=== PATIENT | female | born 1990 | race Caucasian/White ===

== ENCOUNTER → 2018-10-23 | Outpatient (CLI) | payer OTHER, MEDICAID, MEDICARE, SELFPAY ==
[2018-10-30 15:17] LABS: HPV Reflexed? NOT INDICATED
== END | disposition home or self-care (01) ==
PROVIDERS: Family Provider Internal Medicine; PCP Internal Medicine; Referring Provider Obstetrics & Gynecology; Visit Provider Obstetrics & Gynecology
DX: R10.2 Pelvic and perineal pain (principal); Z12.4 Encounter for screening for malignant neoplasm of cervix
CPT/HCPCS: 87086; 87088; 87624; 88175; G0145

== ENCOUNTER → 2018-10-30 | Outpatient (CLI) | payer OTHER, MEDICAID, MEDICARE, SELFPAY ==
--- NOTE | 2018-10-30 10:07 | RAD_ITS ---
PROCEDURE: SMALL BOWEL SERIES DATE OF EXAMINATION: October 30, 2018.. INDICATION: Female, 28 years old. Abdominal pain. PHYSICIAN: Angel Kim M.D. FLUOROSCOPY TIME (if supplied): (0:45) minutes/seconds TECHNIQUE: Radiographic and fluoroscopic images were taken of the small intestine following the ingestion of barium. COMPARISON: None. FINDINGS: A preliminary supine KUB was obtained. There is an unremarkable bowel gas pattern. Fecal material is present throughout the colon. The lung bases are unremarkable. The osseous structures are normal. The patient orally ingested approximately 12 ounces of thin barium Normal visualized fundus, body, and antrum of the stomach. Normal duodenal bulb, C-loop, and proximal jejunum. Normal visualized mucosal folds of the jejunum and ileum. There are no demonstrated dilatations, strictures, or masses of the small intestine. There is no mass displacement of the loops of small intestine. There is a normal motor pattern with barium reaching the colon within approximately 90 minutes. Spot films under fluoroscopic observation demonstrated a normal terminal ileum and ileocecal valve. RAD/Small Bowel Series Only IMPRESSION: Normal small bowel series. Electronically Signed: Angel Kim, at 15:10 EDT , Service support ,
== END | disposition home or self-care (01) ==
LOC: RAD 10:05
PROVIDERS: Family Provider Internal Medicine; PCP Internal Medicine; Referring Provider Internal Medicine Gastroenterology; Visit Provider Internal Medicine Gastroenterology
DX: R10.9 Unspecified abdominal pain (principal)
CPT/HCPCS: 74250

== ENCOUNTER → 2018-11-02 | Outpatient (CLI) | payer OTHER, MEDICARE, SELFPAY ==
--- NOTE | 2018-11-02 13:43 | US_ITS ---
STUDY: ULTRASOUND OF THE FEMALE PELVIS - COMPLETE REASON FOR EXAM: Female, 28 years old. Spastic pelvic syndrome LMP: November TECHNIQUE: Transabdominal and Transvaginal TECHNICAL QUALITY: Adequate. COMPARISON: None. FINDINGS: Uterus is heterogeneous. The uterus is anteverted and is in a midline position. The uterus measures 7.8 x 4.8 x 3.8 cm. Normal uterine cervix. The endometrium measures 7 mm in thickness, and is hyperechoic. There is no demonstrated endometrial mass. There is no demonstrated myometrial mass. I.U.D. - The patient does not have an I.U.D. The right ovary is visualized. The right ovary measures 1.7 x 1.2 x 1.3 cm. There is no right ovarian cyst or ovarian mass. There is no visualized right adnexal mass or complex lesion. There is normal arterial and normal venous vascularity. The left ovary is visualized. The left ovary measures 1.9 x 1.4 x 0.8 cm. There is no left ovarian cyst or ovarian mass. There is no visualized left adnexal mass or complex lesion. There is normal arterial and normal venous vascularity. There is no fluid in the cul-de-sac. . Polycystic ovary disease: No. US/Pelvic (Non ) IMPRESSION: Heterogeneous uterus but no definite fibroid. Electronically Signed: Valente Field MD at 22:07 EDT , Service support ,
--- NOTE | 2018-11-02 13:43 | US_ITS ---
STUDY: ULTRASOUND OF THE FEMALE PELVIS - COMPLETE REASON FOR EXAM: Female, 28 years old. Spastic pelvic syndrome LMP: November TECHNIQUE: Transabdominal and Transvaginal TECHNICAL QUALITY: Adequate. COMPARISON: None. FINDINGS: Uterus is heterogeneous. The uterus is anteverted and is in a midline position. The uterus measures 7.8 x 4.8 x 3.8 cm. Normal uterine cervix. The endometrium measures 7 mm in thickness, and is hyperechoic. There is no demonstrated endometrial mass. There is no demonstrated myometrial mass. I.U.D. - The patient does not have an I.U.D. The right ovary is visualized. The right ovary measures 1.7 x 1.2 x 1.3 cm. There is no right ovarian cyst or ovarian mass. There is no visualized right adnexal mass or complex lesion. There is normal arterial and normal venous vascularity. The left ovary is visualized. The left ovary measures 1.9 x 1.4 x 0.8 cm. There is no left ovarian cyst or ovarian mass. There is no visualized left adnexal mass or complex lesion. There is normal arterial and normal venous vascularity. There is no fluid in the cul-de-sac. . Polycystic ovary disease: No. US/Transvaginal Non- IMPRESSION: Heterogeneous uterus but no definite fibroid. Electronically Signed: Valente Field MD at 22:07 EDT , Service support ,
== END | disposition home or self-care (01) ==
LOC: OPUS 13:43
PROVIDERS: Family Provider Internal Medicine; PCP Internal Medicine; Referring Provider Obstetrics & Gynecology; Visit Provider Obstetrics & Gynecology
DX: R19.8 Other specified symptoms and signs involving the digestive system and abdomen (principal)
CPT/HCPCS: 76830; 76856

== ENCOUNTER 2019-08-27 05:41 | Day surgery (SDC) | payer OTHER, MEDICARE, MEDICAID, SELFPAY ==
[2019-05-02 14:44] VITALS: BMI 40.1
[2019-08-19 16:18] VITALS: BMI 40.1
[2019-08-27] VITALS (12 sets, daily range): BP systolic 109–136; BP diastolic 60–85; PULSE 73–95; RESP 16; TEMP 36.3–36.8; O2SAT 95–100; BMI 39.3
--- NOTE | 2019-08-27 | HYST_PTH ---
PATIENT: SUKHJINDER ALVARADO LOC: [facility] [place] U#:[id number] AGE/SX: 29/F ROOM: RE08/27/[address]: Dr. Anum Llanos MD : [id number] BED: DIS: 08/27/2019 SPEC #: [id number] RECD: 08/27/19 11:52 STATUS: EMILIANO PAULINO #: [id number] FLORIDALMA: 08/27/19 00:[address]: Anum Llanos DEPT: SURGICAL PATHOLOGY RECD BY: Jhonatan Wan ENTERED: 08/27/19 11:52 SP TYPE: HYSTERECT OTHR DR: Dr. Mily Osman MD Tissues: Uterus, NOS Procedures: Surgery Specimen Level V HEADER OPERATION: ERAS, hysterectomy, LAVH, salpingectomy PRE-OP DIAGNOSIS: Chronic pelvic pain; adenomyosis TISSUE SUBMITTED: Bilateral fallopian tubes, uterus and cervix MICROSCOPIC DIAGNOSIS Bilateral fallopian tubes, uterus and cervix, vaginal hysterectomy and bilateral salpingectomy: Cervix - moderate chronic inflammation. Endometrium - consistent with exogenous hormone effects. Myometrium - a minute intramural leiomyoma (0.5 cm in greatest dimension). - Focal superficial adenomyosis. Bilateral fallopian tubes - no pathologic diagnosis. SJ:kathleen 08/28/19 MICROSCOPIC DESCRIPTION Slides are reviewed. GROSS DESCRIPTION Received in fixative is one container labeled with the patient's name and designated uterus. The specimen consists of a uterus with attached cervix and attached right and left fallopian tubes. The uterus with cervix measures 9.5 x 6.2 x 4.2 cm and weighs 96 gm. The ectocervix is unremarkable. The cervical os is oval in contour. The endocervical canal measures 3.5 cm in length and is grossly unremarkable. The triangular endometrial cavity measures 4.5 x 3 cm. The endometrial surface is pink-connors and measures 0.2 cm in thickness. The myometrium measures 2 cm in greatest thickness and is free of mass lesions. The right and left fallopian tubes are similar in appearance with average lengths of 5.5 cm and average diameters of 0.6 cm. The fimbriated ends have a normal villous appearance. Fleet Service Clerk sections are submitted in eight cassettes as follows: 1 - anterior cervix, 2 - posterior cervix, 3 & 4 - anterior uterine wall, 5 & 6 - posterior uterine wall, 7 - right fallopian tube, 8 - left fallopian tube. / AM:kathleen 08/27/19 TC:5 CPT: 39810
--- NOTE | 2019-08-27 05:50 | EKG12_ITS ---
Test Reason : PRE-OP Blood Pressure : / mmHG Vent. Rate : 077 BPM Atrial Rate : 077 BPM P-R Int : 146 ms QRS Dur : 090 ms QT Int : 380 ms P-R-T Axes : 010 013 021 degrees QTc Int : 430 ms Normal sinus rhythm Normal ECG Confirmed by SANTOSH MAXWELL, SHEILA ([id number]), online content editor ELSY ROY ([id number]) on 08/29/2019 3:16:32 PM Referred By: Anum Llanos Confirmed By:SHEILA FROST MD
[2019-08-27 06:13] LABS: Hematocrit 39.7 % (37-47); Hemoglobin 13.1 g/dL (12.0-15.0); Mean Corpuscular Hgb 30.8 pg (27.0-32.0); Mean Corpuscular Volume 93.4 fL (81-99); Mean Platelet Vol. 11.1 fl (6.2-12.0); Platelet Count 322 K/mm3 (150-450); RBC Distribution Width CV 14.6 % (11.6-14.6); RBC Distribution Width SD 49.3 fl (35.1-43.9); Red Blood Count 4.25 M/mm3 (4.2-5.4); White Blood Count 9.3 K/mm3 (4.4-11.0)
[2019-08-27 06:27] LABS: Internal QC Validated? YES +Cl - CLEAR BKGD; Pregnancy, Urine Negative Negative
[2019-08-27] MEDS: Gabapentin 600 MG Tablet PO (06:29)
[2019-08-27] MEDS: Acetaminophen 500 MG Tablet 1000 MG PO (06:29)
[2019-08-27] MEDS: Scopolamine 1mg/72hr Patch 1 PATCH TRANSDERM. (06:30)
[2019-08-27] MEDS: Celecoxib 200 MG Capsule 400 MG PO (06:30)
[2019-08-27] MEDS: Phenazopyridine 95 MG Tablet 190 MG PO (06:30)
[2019-08-27 06:34] LABS: Anion Gap 7 (5-15); BUN 10 mg/dL (7-18); BUN/Creat Ratio 10.7 RATIO (10-20); Calcium,Total 8.5 mg/dL (8.5-10.1); Chloride 107 mmol/L (98-107); Creatinine, Serum 0.94 mg/dL (0.55-1.02); EST Glomerular Filtration Rate 74 mL/min (>60); Est Glom Filt Rate - Afr Amer 90 mL/min (>60); Estimated Creatinine Clearance 94.63 ml/min; Glucose 66 mg/dL (74-106); Magnesium 1.8 mg/dL (1.6-2.6); Potassium 3.4 mmol/L (3.5-5.1); Sodium Level 137 mmol/L (136-145)
[2019-08-27] MEDS: Lactated Ringers 1,000 ML 40 ML IV (06:41)
[2019-08-27] MEDS: dexAMETHasone 10 MG/ML Vial 8 MG IV (06:42)
[2019-08-27 06:50] LABS: Bedside Glucose 71 mg/dL (70-110)
[2019-08-27] MEDS: Lactated Ringers 1,000 ML 70 ML IV (07:00)
--- NOTE | 2019-08-27 07:22 | HP.PCM_ITS ---
- Problem List (1) Adenomyosis Status: Acute Comment: failed continuous OCP (2) Anxiety Status: Acute (3) POTS (postural orthostatic tachycardia syndrome) Status: Acute (4) Chronic pelvic pain in female Status: Chronic Comment: failed continuous OCP plan [facility] History and Physical Date of Admission: 08/27/19 Intake Vital Signs 06/11/19 Height 5 ft 10 in 06/11/19 Weight: 274 lb 06/11/19 BMI 39.3 06/11/19 BP 116/84 H Intake Visit Reasons: Preop LAV Chief Complaint: pre op [facility] System Safety Engineer Required: No Is patient in pain?: No Allergies No Known Allergies Allergy (Verified 06/11/19 13:31) Medications adalimumab 40 mg/0.8 mL subcutaneous syringe kit 40 mg SC .[id number] 10/23/18 [History Confirmed 06/11/19] citalopram 10 mg tablet 10 mg PO DAILY 10/23/18 [History Confirmed 06/11/19] dextromethorphan 20 mg-quinidine 10 mg capsule 1 cap PO DAILY 10/23/18 [History Confirmed 06/11/19] folic acid 1 mg tablet 1 mg PO DAILY 10/23/18 [History Confirmed 06/11/19] lidocaine 5 % topical patch 1 patch TOPICAL DAILY PRN 10/23/18 [History Confirmed 06/11/19] methotrexate sodium 2.5 mg tablet 2.5 mg PO QWEEK 10/23/18 [History Confirmed 06/11/19] ondansetron HCl 4 mg tablet 4 mg PO BID-TID PRN 10/23/18 [History Confirmed 06/11/19] pantoprazole 20 mg tablet,delayed release 20 mg PO DAILY 10/23/18 [History Confirmed 06/11/19] zolmitriptan 2.5 mg tablet 2.5 mg PO ONCE PRN 10/23/18 [History Confirmed 06/11/19] L norgest/e.estradiol-e.estrad 0.15 mg-30 mcg (84)/10 mcg(7) tabs,3mos 1 tab PO DAILY #91 tab 12/05/18 [Rx Confirmed 06/11/19] meloxicam 15 mg tablet 15 mg PO DAILY PRN 06/11/19 [History Confirmed 06/11/19] Is last menstrual period known: No Post menopausal: No Patient : No : No [facility] Medical History Pseudobulbar affect (Acute) POTS (postural orthostatic tachycardia syndrome) (Acute) Rheumatoid arthritis (Acute) Thyroid disorder (Acute) Anxiety (Acute) Narcolepsy (Acute) Depression (Acute) Deviated septum (Acute) Surgical History History of parathyroid surgery (Acute) Family History Grandfather Diabetes Cancer prostate Grandmother Depression Social History (Updated 06/11/19 @ 15:[address] Anum Llanos MD) Smoking Status: Never smoker alcohol intake: current details: occasionally substance use type: does not use caffeine: Yes what type of physical activity do you participate in: none seatbelt use: always do you feel safe at home: Yes additional social history: single- disabled HPI Preop LAV: Details: SUKHJINDER ALVARADO is a 29 year old who presents for preop visit. she has chronic pelvic pain and adenomyosis. Pregancy History 0 Elective abortions Hx Para Spontaneous abortions Hx # Term Pregnancies Ectopic pregnancies Hx # Pregnancies Multiple births # of living children ROS Const Constitutional: Denies fatigue, fever(s), headache(s), increased appetite, poor appetite, weight gain or weight loss ENT ENT: Denies dry mouth GI GI: Reports as per HPI; denies abdominal pain, constipation, nausea or vomiting : Reports as per HPI; denies difficulty urinating, painful urination, blood in urine, nipple discharge, pelvic pain, urinary frequency, urinary incontinence, urinary hesitancy, urinary urgency, vaginal discharge, vaginal dryness, vaginal odor, vaginal itching or other Skin Skin/Breast: Denies nipple discharge Exam Const General: cooperative, healthy appearing, comfortable, no acute distress, well developed Nutritional Appearance: average body habitus Orientation: alert HENNC Head: normal to inspection, normocephalic Neck Neck: normal visual inspection, trachea midline Thyroid: thyroid normal Chest Chest palpation & inspection: normal inspection of the chest Breast inspection: normal inspection of the breasts, normal inspection of the axillae Breast palpation: normal palpation of the breasts, normal palpation of the axillae, no axillary lymphadenopathy Resp Effort & Inspection: normal respiratory effort GI Inspection: normal to inspection, non-distended Palpation: soft, no hepatosplenomegaly General: bladder normal to palpation External Female Exam: normal external appearance, normal appearance of the urethra Urethra: normal appearance of the urethra Speculum Exam - Vagina: normal appearance of the vagina, normal vaginal discharge Speculum Exam - Cervix: normal appearance of the cervix, nontender Bimanual Exam- Vagina & Uterus: bladder normal to palpation, No cervical tenderness Bimanual Exam- Adnexa, other: normal adnexae, adnexae mobile, no adnexal masses, pelvic support normal Pelvic Support: normal Skin General: no rashes or lesions noted Assessment & Plan Problems 1. Chronic pelvic pain in female R10.2; G89.29 failed continuous OCP plan LAVH BS cysto 2. Adenomyosis N80.0 failed continuous OCP Plan After discussing the patient's diagnosis and treatment plan options, patient wishes to proceed with surgical management. I have discussed with the patient the risks, benefits, and alternatives of the procedure which include but are not limited to risks of anesthesia, bleeding, infection, possible damage to bowel, bladder, or surrounding vasculature which could lead to additional surgery to evaluate any complications. Patient agrees to procedure and wishes to proceed. ACOG/uptodate references given for additional information regarding procedure. UPDATE- I have seen the patient and performed any clinically relevant updates to the history and physical exam. Anum Llanos MD Coding Level of Care Code No Charge Diagnoses Chronic pelvic pain in female R10.2; G89.29 Adenomyosis N80.0
[2019-08-27] MEDS: Magnesium Sulfate 1 GM in 0.9% Normal Saline 100 ML IV (07:27)
[2019-08-27] MEDS: Lubricating Jelly 60 GM Tube 30 GM TOPICAL (08:06)
[2019-08-27] MEDS: Vasopressin 20 UNITS/ML Vial (08:37)
[2019-08-27] MEDS: Bupivacaine 0.25% 30 ML Vial (09:03)
--- NOTE | 2019-08-27 09:20 | PCM.OPRPT ---
Problem List (1) Adenomyosis Status: Acute Comment: failed continuous OCP (2) Anxiety Status: Acute (3) POTS (postural orthostatic tachycardia syndrome) Status: Acute (4) Chronic pelvic pain in female Status: Chronic Comment: failed continuous OCP plan [facility] Report of Operation Date of Procedure: 08/27/19 Pre-Operative Diagnosis: AUB chronic pelvic pain adenomyosis Post-Operative Diagnosis: same plus endometriosis Description of Surgical Findings:: old endometriosis lesions in anterior and posterior cul de sac. anterior scar tissue over bladder flap from previous endometriosis damage customer sales advisor: Joaquin Ferreira Type of Anesthesia:: General Special Medications: amado Specimen's removed: uterus tubes Drains: walker Estimated Blood Loss (mL): 50 Fluids Replaced: crystalloid Description of Procedure: Patient received preoperative antibiotics and SCDs were on preoperatively. Patient was taken back to the operating room and placed in the dorsal lithotomy position. General anesthesia was induced and patient was prepped and draped in normal sterile fashion. Uterine manipulator was placed inside the uterus and Walker catheter placed in the bladder. The umbilicus was grasped with towel clamps and an intraumbilical incision was made after injecting with quarter percent Marcaine and a Veress needle entered into the abdomen confirmed to be intra-abdominal with a low opening pressure. Abdomen was insufflated with CO2 gas and the Veress needle removed and the 5 mm trocar was placed under direct visualization without complication. Right and left lower quadrants were transilluminated and injected with quarter percent Marcaine and 5 mm ports placed under direct visualization. Pelvis was well visualized see operative findings for additional information. Bilateral fallopian tubes were identified and transected with the LigaSure device across the mesosalpinx to the level of the utero-ovarian ligament which was also transected with the LigaSure device. The broad ligament was opened up by transecting the round ligament bilaterally and skeletonizing the uterine vessels bilaterally and creating a bladder flap using the LigaSure device. extensive scar tissue was seen anteriorly and taken down sharply, bluntly, and with hydrodissection. The uterine arteries were transected bilaterally with good visualization of the bladder and the ureters were seen to be inferior lateral to the operative area. Attention was then paid to the vaginal portion of the procedure and the cervix was grasped with Marcelino clamps and circumferentially injected with dilute vasopressin. A circumferential incision was made and the vaginal mucosa was mobilized off posteriorly and the cul-de-sac entered into sharply and a longneck speculum placed. The anterior cul-de-sac was then identified and entered into sharply. The uterosacral ligaments were clamped cut and suture ligated with 0 Monocryl bilaterally followed by the cardinal ligaments which were clamped cut and suture ligated bilaterally with 0 Monocryl. The uterus serially descended and was removed without difficulty without morcellation. Pelvic sidewall pedicles were checked and noted to have excellent hemostasis. The vaginal mucosa was reapproximated incorporating the posterior peritoneum. This was reapproximated using 0 Vicryl [id number] sutures. Excellent hemostasis was noted. The cystoscopy was then performed and bilateral ureteral strong spray was noted and the bladder was noted to have no abnormality or lesions seen. Walker catheter was replaced and then attention paid to the abdominal portion of the procedure again. The pelvis and cul-de-sac was well visualized and no significant active bleeding noted but some raw areas were seen on the peritoneum and therefore Amado was applied. Pressure was taken down and the areas visualized and noted of excellent hemostasis. All ports were removed under direct visualization without complication and the abdomen was desufflated of air. The instruments removed from the abdomen and the vagina vaginal sweep was negative. Port sites on the abdomen were closed with 4-0 Monocryl interrupted sutures and Steri's and windows were applied. She was awoken and taken recovery in stable condition. Grafts/Implants Used: none - Complications none Multi Select Codes - Urinary/Genital Urinary/Genital CPT Codes: 42644 LAVH+BS/O <250gr Uterus
--- NOTE | 2019-08-27 09:48 | DCINST_ITS ---
Discharge Diet: No Restrictions Discharge Activity: Return to Normal Activity, May Not Drive, May Shower May resume sexual activity in: 6-8 weeks Call your doctor if your incision/area has: Continuous Slow Oozing, Sudden Increased Bleeding, Increased Pain/ Swelling, Increased Redness, Foul Smelling Discharge Call your doctor if you observe: Fever of 101 or Higher, Inability to urinate, Inability to have a bowel movement, Using more than one pad per hour Allergies/Adverse Reactions: Allergies No Known Allergies Allergy (Verified 08/20/19 12:16) Medications to take at Discharge adalimumab 40 mg/0.8 mL subcutaneous syringe kit 40 mg SC .[id number] 10/23/18 citalopram 10 mg tablet 10 mg PO DAILY 10/23/18 dextromethorphan 20 mg-quinidine 10 mg capsule 1 cap PO DAILY 10/23/18 folic acid 1 mg tablet 1 mg PO DAILY 10/23/18 lidocaine 5 % topical patch 1 patch TOPICAL DAILY PRN 10/23/18 methotrexate sodium 2.5 mg tablet 2.5 mg PO QWEEK 10/23/18 ondansetron HCl 4 mg tablet 4 mg PO BID-TID PRN 10/23/18 pantoprazole 20 mg tablet,delayed release 20 mg PO QHS 10/23/18 zolmitriptan 2.5 mg tablet 2.5 mg PO ONCE PRN 10/23/18 L norgest/e.estradiol-e.estrad 0.15 mg-30 mcg (84)/10 mcg(7) tabs,3mos 1 tab PO DAILY #91 tab 12/05/18 meloxicam 15 mg tablet 15 mg PO DAILY PRN 06/11/19 Naproxen [Naprosyn] 250 - 500 mg PO Q8H PRN PRN #30 tab 08/27/19 Oxycodone HCl/Acetaminophen [Percocet 5-325] 1 - 2 tablet PO Q6H PRN PRN 7 Days #15 tablet 08/27/19 The following prescriptions were given: Naproxen [Naprosyn] 250 - 500 mg PO Q8H PRN PRN #30 tab PRN Reason: MILD PAIN Transmission Status: Pending to [facility] Oxycodone HCl/Acetaminophen [Percocet 5-325] 1 - 2 tablet PO Q6H PRN PRN 7 Days #15 tablet PRN Reason: Pain Transmission Status: Sent to [facility] Primary Care Physician: Mily Osman MD [Primary Care Provider] - Test Results: Test results from this visit will be discussed in further detail at your follow- up appointment, if applicable. Please Follow Up With: Anum Llanos MD - [phone]
[2019-08-27 12:20] LABS: Hematocrit 38.3 % (37-47); Hemoglobin 12.8 g/dL (12.0-15.0); Mean Corp Hgb Conc 33.4 g/dL (32-36); Mean Corpuscular Hgb 31.1 pg (27.0-32.0); Platelet Count 281 K/mm3 (150-450); RBC Distribution Width CV 14.6 % (11.6-14.6); RBC Distribution Width SD 49.6 fl (35.1-43.9); Red Blood Count 4.12 M/mm3 (4.2-5.4); White Blood Count 10.3 K/mm3 (4.4-11.0)
== END 2019-08-27 13:14 | disposition home or self-care (01) ==
LOC: SDC 05:43 → AC 05:44
PROVIDERS: Anesthesiology; PCP Internal Medicine; Referring Provider Obstetrics & Gynecology; Visit Provider Obstetrics & Gynecology
PROC: 0UT9FZZ Resection of Uterus, Via Natural or Artificial Opening With Percutaneous Endoscopic Assistance (ICD-10-PCS; CPT 58552; principal; 2019-08-27 07:05)
DX: D25.1 Intramural leiomyoma of uterus (principal); N72 Inflammatory disease of cervix uteri; N80.0 Endometriosis of uterus; R10.2 Pelvic and perineal pain; G89.29 Other chronic pain; M06.9 Rheumatoid arthritis, unspecified; E07.9 Disorder of thyroid, unspecified; G47.419 Narcolepsy without cataplexy; F32.9 Major depressive disorder, single episode, unspecified; F41.9 Anxiety disorder, unspecified; Z79.899 Other long term (current) drug therapy; Z11.59 Encounter for screening for other viral diseases
CPT/HCPCS: 58552; 80048; 81025; 82962; 83735; 85027; 86850; 86900; 86901; 87635; 88302; 88307; 93005; G2023; J7120; J2405; U0004

== ENCOUNTER → 2022-01-27 | Outpatient (CLI) | payer MEDICARE, MEDICAID, SELFPAY ==
[2022-01-27 15:00] LABS: Estradiol 46.3 pg/mL; Follicle Stimulating Hormone 4.3 mIU/mL
== END | disposition home or self-care (01) ==
LOC: PAVLAB 14:34
PROVIDERS: PCP Internal Medicine; Referring Provider Obstetrics & Gynecology; Visit Provider Obstetrics & Gynecology
DX: N95.1 Menopausal and female climacteric states (principal)
CPT/HCPCS: 36415; 82670; 83001

== ENCOUNTER → 2022-10-31 | Outpatient (CLI) | payer MEDICARE, MEDICAID, SELFPAY ==
--- NOTE | 2022-10-31 11:51 | US_ITS ---
STUDY: ULTRASOUND OF THE FEMALE PELVIS - COMPLETE REASON FOR EXAM: Female, 32 years old. Ovarian cyst LMP: Patient is status post hysterectomy. TECHNIQUE: Transvaginal TECHNICAL QUALITY: Adequate. COMPARISON: Comparison is made with prior study dated November 02, 2018. FINDINGS: The patient is status post hysterectomy. The right ovary is visualized. The right ovary measures 3.5 cm x 1.9 cm x 2 cm. There is no right ovarian cyst or ovarian mass. There is no visualized right adnexal mass or complex lesion. There is normal arterial and normal venous vascularity. The left ovary is visualized. The left ovary measures 2.9 cm x 2.6 x 2.3 cm. There is no left ovarian cyst or ovarian mass. There is no visualized left adnexal mass or complex lesion. There is normal arterial and normal venous vascularity. There is no fluid in the cul-de-sac. US/Transvaginal Non- IMPRESSION: Status post hysterectomy. The ovaries are unremarkable. Electronically Signed: Angel Kim MD at 13:20 EDT ,
== END | disposition home or self-care (01) ==
LOC: US 11:48
PROVIDERS: PCP Internal Medicine; Referring Provider Obstetrics & Gynecology; Visit Provider Obstetrics & Gynecology
DX: N83.209 Unspecified ovarian cyst, unspecified side (principal)
CPT/HCPCS: 76830

== ENCOUNTER → 2023-03-31 | Outpatient (CLI) | payer MEDICARE, MEDICAID, SELFPAY ==
--- NOTE | 2023-03-31 14:12 | CT_ITS ---
STUDY: CT ABDOMEN AND PELVIS WITH CONTRAST REASON FOR EXAM: Female, 33 years old. Abdominal pain RADIATION DOSAGE (If Supplied By Facility): CTDIvol = ( 16.19 ) mGy, DLP = ( 1245.79 ) mGycm TECHNIQUE: IV 100mL Isovue-300 was administered. Transaxial images were obtained from the dome of the diaphragm to the symphysis pubis in the arterial, nephrographic and excretory phases. Multiplanar coronal and sagittal images were reformatted. Individualized Dose Optimization Techniques Were Used For This CT. COMPARISON: No relevant prior comparison study available FINDINGS: The visualized lung bases are unremarkable. The visualized portions of the heart are within normal limits. Normal liver. [Thickening of the anterior gallbladder wall or polyp. Normal spleen. Normal pancreas. Normal bilateral adrenal glands. Tiny cysts in the left kidney probably simple and no further follow-up exam is needed. No evidence of hydronephrosis. Distended stomach. Filling defect in the region of the antrum and pylorus could represent adherent residual food particle. Mass cannot be excluded. Correlation with endoscopy is recommended. In caliber small bowel loops. Fecal retention. No evidence of acute diverticulitis. Difficult to accurately evaluate the cecum this exam. The appendix is visualized and appears normal. Normal abdominal aorta. No retroperitoneal adenopathy. Normal urinary bladder. There is absence of the uterus consistent with a prior hysterectomy. There is no free fluid in the pelvis. 2.5 cm left adnexal Normal abdominal wall. No demonstrated acute osseous changes. CT/Abdomen/Pelvis WITH Contrast IMPRESSION: 1. Focal thickening of the antrum could represent adherent food particles. Filling defect cannot be excluded. Endoscopy suggested. 2. Otherwise no focal acute inflammatory process. 3. Status post hysterectomy. Trace of free fluid in the pelvis. 4. Left adnexal cyst. Electronically Signed: Allan Desai MD at 16:00 EST ,
--- OUTSIDE RECORDS SUMMARY | 2023-03-31 14:30 | XMS RPT_ITS | CCD ---
Author Name Unknown Address [address] [place] [address] Organization [facility] Care Team Providers Care Farm Rancher Name Role Phone Dawson Get D Primary Care Provider TALROLF, GET D Primary Care Unavailable Get Osman MD Primary Care Provider Talampas, Get Unavailable José Pa Unavailable Unavailable Talampas Get MAXWELL Primary Care Provider Talampas, Get Unavailable DARLEEN CARLTON Attending Unavailable TALAMPAS, GET D Primary Care Unavailable DARLEEN CARLTON Attending Unavailable TALAMPAS, GET D Primary Care Unavailable Talampas, Get Attending Unavailable Talampas, Get Primary Care Unavailable Talampas, Get Attending Unavailable Talampas, Get Primary Care Unavailable Talampas, Get Primary Care Unavailable Talampas, Get Attending Unavailable Talampas, Get Primary Care Unavailable Talampas, Get Attending Unavailable Dr. José Pa Attending Unava ilable Talampas, Get Primary Care Unavailable Talampas, Get Primary Care Unavailable Talampas, Get Attending Unavailable Talampas, Get Primary Care Unavailable Talampas, Get Attending Unavailable Talampas, Get Attending Unavailable Talampas, Get Primary Care Unavailable Talampas, Get Attending Unavailable Talampas, Get Primary Care Unavailable Talampas, Get Attending Unavailable Talampas, Get Primary Care Unavailable Talampas, Get Primary Care Unavailable Talampas, Get Attending Unavailable Talampas, Get Attending Unavailable Talampas, Get Primary Care Unavailable Talampas, Get Attending Unavailable Talampas, Get Primary Care Unavailable MARIANA, TAWNYA Referring Unavailable TALAMPAS, GET D Primary Care Unavailable Talampas MD Get D Primary Care Provider TALAMPAS, GET D Primary Care Unavailable TALAMPAS, GET D Primary Care Unavailable TALAMPAS, GET D Primary Care Unavailable TALAMPAS, GET D Primary Care Unavailable ESE FERNANDEZ Attending Unavailable TALAMPAS, GET D Attending Unavailable TALAMPAS, GET D Primary Care Unavailable MARIANATAWNYA Attending Unavailable TALAMPAS, GET D Primary Care Unavailable MARIANATAWNYA Attending Unavailable TALAMPAS, GET D Primary Care Unavailable DUARTE PEREZ Attending Unavailable TALAMPAS, GET D Primary Care Unavailable TALAMPAS, GET D Primary Care Unavailable RADHA CALLAHAN Attending Unavailable NAMAN COY Attending Unava ilable TALAMPAS, GET D Primary Care Unavailable NOMAN PHELPS Attending Unavailable TALAMPAS, GET D Primary Care Unavailable TALAMPAS, GET D Primary Care Unavailable VALENTIN HENDRICKSON Attending Unavailable VALENTIN HENDRICKSON Referring Unavailable TALAMPAS, GET D Primary Care Unavailable VALENTIN HENDRICKSON Attending Unavailable TALAMPAS, GET D Primary Care Unavailable TALAMPAS, GET D Primary Care Unavailable PENELOPE JONES Attending Unavailable ANTONIO RENE Referring Unavailable TALAMPAS, GET D Primary Care Unavailable MARIANATAWNYA Attending Unavailable TALAMPAS, GET D Primary Care Unavailable TALAMPAS, GET D Primary Care Unavailable TALAMPAS, GET D Attending Unavailable TALAMPAS, GET D Primary Care Unavailable TALAMPAS, GET D Referring Unavailable MARIANA, TAWNYA Referring Unavailable TALAMPAS, GET D Primary Care Unavailable TALAMPAS, GET D Primary Care Unavailable TALAMPAS, GET D Attending Unavailable BENEDICT TREVINO Attending Unavailable TALAMPAS, GET D Primary Care Unavailable TALAMPAS, GET D Primary Care Unavailable TALAMPAS, GET D Primary Care Unavailable NAMAN COY Attending Unava ilable Allergies Allergy Classification Reported Allergen(s) Allergy Type Date of Onset Reaction(s) Facility Aminoketones (3 sources) buPROPion Drug Allergy [address] [facility] DULoxetine (3 sources) DULoxetine Drug Allergy [address] [facility] (20 sources) buPROPion; Translations: [BUPROPION HCL] Drug Allergy 4 Unknown, Other: See Comments [facility] (20 sources) DULoxetine; Translations: [DULOXETINE] Drug Allergy 4 Unknown, Other: See Comments [facility] (20 sources) environmental [Other] Propensity to adverse reactions 6 [facility] Work Phone: (2 sources) OTHER; Translations: [OTHER] Propensity to adverse reactions (disorder) 6 [facility] Other [place] [facility] Medications Current Medications Medication Drug Class(es) Dates Sig (Normalized) Sig (Original) 0.8 ml adalimumab 50 mg/ml prefilled syringe (20 sources) Tumor Necrosis Factor April Start: 11-04-2022 Humira 40 mg/0.8 mL syringe kit prefilled syringe Completed/Discontinued Medications Medication Drug Class(es) Dates Sig (Normalized) Sig (Original) cholecalciferol 0.125 mg oral tablet (20 sources) Vitamin D take 1 tablet by mouth once daily cholecalciferol (VITAMIN D-3) 5,000 unit tab Take 5,000 Units by mouth once daily. 0 Active Problems Active Problems Problem Classification Problem Date Documented Da te Episodic/Chronic Abdominal hernia (2 sources) Hiatal hernia; Translations: [Diaphragmatic hernia without obstruction or gangrene] Onset: 01-04-2023 12-27-2022 Episodic Abdominal pain (10 sources) Abdominal pain; Translations: [Indigestion] Onset: 09-29-2022 09-29-2022 Episodic Past or Other Problems Problem Classification Problem Date Documented Da te Episodic/Chronic Conditions associated with dizziness or vertigo (14 sources) Loss of equilibrium; Translations: [Dizziness and giddiness] Onset: 5 02-04-2020 Episodic Heart valve disorders (1 source) Other abnormalities of heart beat; Translations: [Other abnormalities of heart beat] Onset: 3 Episodic Inflammation; infection of eye (except that caused by tuberculosis or sexually transmitteddisease) (20 sources) Allergic conjunctivitis of bilateral eyes; Translations: [Acute atopic conjunctivitis, bilateral] Onset: 6 02-04-2020 Episodic Nutritional deficiencies (20 sources) Decreased vitamin D; Translations: [Other specified abnormal findings of blood chemistry] Onset: 6 02-04-2020 Episodic Other circulatory disease (7 sources) Elevated blood pressure; Translations: [Elevated blood-pressure reading, without diagnosis of hypertension] Onset: 0 02-04-2020 Episodic Other circulatory disease (7 sources) Postural orthostatic tachycardia syndrome ; Translations: [Tachycardia, unspecified] Onset: 7 02-04-2020 Episodic Other connective tissue disease (20 sources) Muscle pain; Translations: [Myalgia and myositis] Onset: 3 01-23-2015 Episodic Other connective tissue disease (4 sources) Personal history of other diseases of the musculoskeletal system and connective tissue; Translations: [Personal history of other diseases of the musculoskeletal system and connective tissue] Onset: 3 Episodic Other eye disorders (20 sources) Dry eyes; Translations: [Dry eye syndrome of bilateral lacrimal glands] Onset: 7 02-04-2020 Episodic Other gastrointestinal disorders (2 sources) Change in bowel habit; Translations: [Change in bowel habit] Onset: 3 Episodic Other screening for suspected conditions (not mental disorders or infectious disease) (4 sources) Other specified abnormal findings of blood chemistry; Translations: [Other specified abnormal findings of blood chemistry] Onset: 0 Episodic Other skin disorders (1 source) Striae atrophicae; Translations: [Stretch moore] Onset: 3 Episodic Unclassified (1 source) nursing home (current) use of immunosuppressive biologic; 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] Onset: 3 Results Test Name Value Interpretation Reference [facility] it Vital Signs Date Time Vital Sign Value Performing Clinician Facility 02-15-2023 12:21-0500 Body height 177.8 cm Radha Callahan APRN.MUSIC TYPOGRAPHER Work Phone: [facility] 02-15-2023 12:21-0500 Body weight 93.89 kg Radha Callahan APRN.CNP Work Phone: [facility] 02-09-2023 20:00-0500 Diastolic blood pressure 74 mm[Hg] Agustin Rasmussen DO Work Phone: [facility] 02-09-2023 20:00-0500 Heart rate 68 /min Agustin Boyleersen DO Work Phone: [facility] 02-09-2023 20:00-0500 Respiratory rate 17 /min Agustin Rasmussen DO Work Phone: [facility] 02-09-2023 20:00-0500 SaO2% (BldA) [Mass fraction] 97 % Agustin Rasmussen DO Work Phone: [phone] [place] [address] 02-09-2023 20:00-0500 Systolic blood pressure 115 mm[Hg] Agustin Rasmussen DO Work Phone: [phone] [place] [address] 02-09-2023 14:59-0500 Body height 177.8 cm Agustin Rasmussen DO Work Phone: [phone] [place] [address] 02-09-2023 14:59-0500 Body mass index (BMI) [Ratio] 29.84 kg/m2 Agustin Boyleersen DO Work Phone: [facility] 02-09-2023 14:59-0500 Body temperature 97.9 [degF] Agustin Rasmussen DO Work Phone: [facility] 02-09-2023 14:59-0500 Body weight 94.35 kg Agustin Rasmussen DO Work Phone: [facility] 12-28-2022 15:39-0400 Body height 175.9 cm Naman Forder DO Work Phone: [facility] 12-28-2022 15:39-0400 Body weight 96.62 kg Naman Forder DO Work Phone: [facility] 12-28-2022 15:39-0400 Diastolic blood pressure 64 mm[Hg] Naman Maloneefer DO Work Phone: [facility] 12-28-2022 15:39-0400 Heart rate 109 /min Naman Forder DO Work Phone: [facility] 12-28-2022 15:39-0400 SaO2% (BldA) [Mass fraction] 98 % Naman Garza DO Work Phone: [facility] 12-28-2022 15:39-0400 Systolic blood pressure 106 mm[Hg] Naman Garza DO Work Phone: [facility] 12-27-2022 10:32-0400 Body weight 94.8 kg Tawnya Mariana CLEARING INSPECTOR.MUSIC TYPOGRAPHER Work Phone: [facility] 12-27-2022 10:32-0400 Diastolic blood pressure 68 mm[Hg] Tawnya Mariana CLEARING INSPECTOR.MUSIC TYPOGRAPHER Work Phone: [facility] 12-27-2022 10:32-0400 Heart rate 102 /min Tawnya Mariana CLEARING INSPECTOR.MUSIC TYPOGRAPHER Work Phone: [facility] 12-27-2022 10:32-0400 SaO2% (BldA) [Mass fraction] 98 % Tawnya Mariana CLEARING INSPECTOR.MUSIC TYPOGRAPHER Work Phone: [facility] 12-27-2022 10:32-0400 Systolic blood pressure 100 mm[Hg] Tawnya Mariana CLEARING INSPECTOR.MUSIC TYPOGRAPHER Work Phone: [facility] 12-14-2022 14:38-0400 Body weight 96.07 kg Penelope Corbiner PA-C Work Phone: [facility] 12-14-2022 14:38-0400 Diastolic blood pressure 73 mm[Hg] Penelope Corbiner PA-C Work Phone: [facility] 12-14-2022 14:38-0400 Heart rate 85 /min Penelope Queener PA-C Work Phone: [facility] 12-14-2022 14:38-0400 Respiratory rate 16 /min Penelope Queener PA-C Work Phone: [facility] 12-14-2022 14:38-0400 SaO2% (BldA) [Mass fraction] 100 % Penelope Queener PA-C Work Phone: [facility] 12-14-2022 14:38-0400 Systolic blood pressure 110 mm[Hg] Penelope Jones PA-C Work Phone: [facility] 12-14-2022 10:16-0400 Body mass index (BMI) [Ratio] 30.13 kg/m2 Darleen Carlton MD Work Phone: [facility] 12-14-2022 10:16-0400 Body weight 95.25 kg Darleen Carlton MD Work Phone: [facility] 12-14-2022 10:16-0400 Diastolic blood pressure 69 mm[Hg] Darleen Carlton MD Work Phone: [facility] 12-14-2022 10:16-0400 Heart rate 94 /min Darleen Carlton MD Work Phone: [facility] 12-14-2022 10:16-0400 Systolic blood pressure 102 mm[Hg] Darleen Carlton MD Work Phone: [facility] 11-02-2022 14:18-0400 Body weight 95.71 kg Duarte Perez DO Work Phone: [facility] 09-29-2022 11:44-0400 Diastolic blood pressure 62 mm[Hg] Get Talampas Other Phone: [facility] 09-29-2022 11:44-0400 Heart rate 77 /min Get Talampas Other Phone: [facility] 09-29-2022 11:44-0400 Respiratory rate 16 /min Get Talampas Other Phone: [facility] 09-29-2022 11:44-0400 SaO2% (BldA) [Mass fraction] 99 % Get Talampas Other Phone: [facility] 09-29-2022 11:44-0400 Systolic blood pressure 108 mm[Hg] Get Talampas Other Phone: [facility] 09-29-2022 07:46-0400 Body height 177.8 cm Get Talampas Other Phone: [facility] 09-29-2022 07:46-0400 Body temperature 97.88 [degF] Get Osman Other Phone: [facility] 09-29-2022 07:46-0400 Body weight 97 kg Get Dawson Other Phone: [facility] 09-28-2022 15:51-0400 Body weight 96.66 kg Tawnya Mariana CLEARING INSPECTOR.MUSIC TYPOGRAPHER Work Phone: [facility] 09-28-2022 15:51-0400 Diastolic blood pressure 70 mm[Hg] Tawnya Mariana CLEARING INSPECTOR.MUSIC TYPOGRAPHER Work Phone: [facility] 09-28-2022 15:51-0400 Heart rate 70 /min Tawnya Mariana CLEARING INSPECTOR.MUSIC TYPOGRAPHER Work Phone: [facility] 09-28-2022 15:51-0400 Systolic blood pressure 120 mm[Hg] Tawnya Mariana CLEARING INSPECTOR.MUSIC TYPOGRAPHER Work Phone: [facility] 08-03-2022 13:05-0400 Body mass index (BMI) [Ratio] 30.56 kg/m2 Darleen Carlton MD Work Phone: [facility] 08-03-2022 13:05-0400 Body weight 96.62 kg Darleen Carlton MD Work Phone: [facility] 08-03-2022 13:05-0400 Diastolic blood pressure 68 mm[Hg] Darleen Carlton MD Work Phone: [facility] 08-03-2022 13:05-0400 Heart rate 82 /min Darleen Carlton MD Work Phone: [facility] 08-03-2022 13:05-0400 Systolic blood pressure 101 mm[Hg] Darleen Carlton MD Work Phone: [facility] 06-01-2022 10:24-0500 Body temperature 97.59 [degF] Get Osman MD Work Phone: [facility] 03-01-2023 10:24-0500 Body weight 98.88 kg Get Osman MD Work Phone: [facility] 06-01-2022 10:24-0500 Diastolic blood pressure 62 mm[Hg] Get Osman MD Work Phone: [facility] 06-01-2022 10:24-0500 Heart rate 71 /min Get Osman MD Work Phone: [facility] 06-01-2022 10:24-0500 Respiratory rate 18 /min Get Osman MD Work Phone: [facility] 06-01-2022 10:24-0500 SaO2% (BldA) [Mass fraction] 99 % Get Osman MD Work Phone: [facility] 06-01-2022 10:24-0500 Systolic blood pressure 106 mm[Hg] Get Osman MD Work Phone: [facility] 09-06-2021 17:18-0400 Body weight 110.68 kg Get Osman MD Work Phone: [facility] 09-06-2021 17:18-0400 Diastolic blood pressure 60 mm[Hg] Get Osman MD Work Phone: [facility] 09-06-2021 17:18-0400 Heart rate 60 /min eGt Osman MD Work Phone: [facility] 09-06-2021 17:18-0400 SaO2% (BldA) [Mass fraction] 98 % Get Osman MD Work Phone: [facility] 09-06-2021 17:18-0400 Systolic blood pressure 92 mm[Hg] Get Osman MD Work Phone: [facility] 08-04-2021 13:13-0400 Body mass index (BMI) [Ratio] 35.73 kg/m2 Darleen Carlton MD Work Phone: [facility] 08-04-2021 13:13-0400 Body weight 112.95 kg Darleen Carlton MD Work Phone: [facility] 08-04-2021 13:13-0400 Diastolic blood pressure 67 mm[Hg] Darleen Carlton MD Work Phone: [facility] 08-04-2021 13:13-0400 Heart rate 85 /min Darleen Carlton MD Work Phone: [facility] 08-04-2021 13:13-0400 Systolic blood pressure 105 mm[Hg] Darleen Carlton MD Work Phone: [facility] 08-05-2020 13:23-0400 Body mass index (BMI) [Ratio] 36.73 kg/m2 Darleen Carlton MD Work Phone: [facility] 08-05-2020 13:23-0400 Body weight 116.12 kg Darleen Carlton MD Work Phone: [facility] 08-05-2020 13:23-0400 Diastolic blood pressure 78 mm[Hg] Darleen Carlton MD Work Phone: [facility] 08-05-2020 13:23-0400 Heart rate 96 /min Darleen Carlton MD Work Phone: [facility] 08-05-2020 13:23-0400 Systolic blood pressure 118 mm[Hg] Darleen Carlton MD Work Phone: [facility] 05-06-2020 10:13-0500 BMI (Body Mass Index) 37.45 kg/m2 [facility] 05-06-2020 10:13-0500 Body weight 118.39 kg [facility] 05-06-2020 10:13-0500 BP Diastolic 76 mm[Hg] [facility] 05-06-2020 10:13-0500 BP Systolic 114 mm[Hg] [facility] 05-06-2020 10:13-0500 Pulse (Heart Rate) 97 /min [facility] 02-04-2020 09:14-0500 BMI (Body Mass Index) 39.03 kg/m2 [facility] 02-04-2020 09:14-0500 Body weight 123.38 kg [facility] 02-04-2020 09:14-0500 BP Diastolic 81 mm[Hg] [facility] 02-04-2020 09:14-0500 BP Systolic 119 mm[Hg] [facility] 02-04-2020 09:14-0500 Height 177.8 cm [facility] 02-04-2020 09:14-0500 Pulse (Heart Rate) 121 /min Darleen [facility] Encounters Encounter Date Encounter Type Care Provider Facility Start: 03-15-2023 End: 03-15-2023 ambulatory GET D TALAMPAS Facility:[facility] Start: 03-15-2023 End: 03-15-2023 ambulatory Naman Cabello Kayla DO Work Phone: Neurology Procedures Date Procedure Procedure Detail Performing Clinician Start: 02-09-2023 US PELVIS GET TALAM PAS Start: 02-09-2023 EXTRA URINE GALO TUBE L JELENA TALAMPAS Start: 02-09-2023 URINALYSIS WITH REFL EX MICROSCOPIC AND CULTURE GET TALAMPAS Start: 02-09-2023 Us pelvic nonobstetr ic real-time image complete Agustin Rasmussen DO Work Phone: Start: 02-09-2023 CT ABDOMEN PELVIS W IV CONTRAST GET TALAMPAS Start: 02-09-2023 CBC W Auto Different ial panel - Blood GET TALAMPAS Start: 02-09-2023 Comprehensive metabo lic 2000 panel - Serum or Plasma GET TALAMPAS Start: 02-09-2023 EXTRA TUBES GET TALAM PAS Start: 02-09-2023 Lactate [Moles/volum e] in Serum or Plasma GET TALAMPAS Start: 02-09-2023 LIGHT BLUE TOP GET ANNIKA AMPAS Start: 02-09-2023 Lipase [Enzymatic activity/volume] in Serum or Plasma GET TALAMPAS Start: 02-09-2023 SST TOP GET TALAM PAS Start: 02-09-2023 Urnls dip stick/tabl et rgnt auto w/o microscopy Agustin Rasmussen DO Work Phone: Start: 02-09-2023 Ct abdomen & pelvis w/contrast material Agustin Rasmussen DO Work Phone: Start: 02-09-2023 Comprehensive metabo lic panel Agustin Rasmussen DO Work Phone: Start: 02-09-2023 EXTRA TUBES Agustin Rasmussen DO Work Phone: Start: 02-09-2023 GREEN TOP Agustin Rasmussen DO Work Phone: Start: 02-09-2023 LIGHT BLUE TOP Agustin Rasmussen DO Work Phone: Start: 02-09-2023 SST TOP Agustin Rasmussen DO Work Phone: Start: 01-13-2023 Gastric emptying tamar ging study Tawnya Wise CLEARING INSPECTOR.MUSIC TYPOGRAPHER Work Phone: Start: 04-28-2022 Clsr lacrimal punctu m plug each Valentin Hendrickson MD Work Phone: Start: 04-27-2022 Lipid 1996 panel - S cathy or Plasma Agustin Rasmussen DO Work Phone: Start: 10-14-2021 Clsr lacrimal punctu m plug each Valentin Hendrickson MD Work Phone: Start: 06-24-2021 Clsr lacrimal punctu m plug each Valentin Hendrickson MD Work Phone: Start: 02-04-2020 Radex hand 2 views Darleen Carlton Work Phone: Plan of Treatment Date Care Activity Detail Author Start: 2039 Zoster Vaccines (1 of 2) Zoste r Vaccines (1 of 2) [facility] Start: 02-28-2030 DTaP/Tdap/Td Vaccine s (2 - Td or Tdap) DTaP/Tdap/Td Vaccines (2 - Td or Tdap) [facility] Start: 02-28-2030 Tetanus vaccination Tetanus: Every [address] [facility] Start: 02-28-2030 Urine microalbumin profile [facility] Start: 04-27-2027 Lipid panel Lipid Panel [facility] Start: 08-03-2023 End: 08-03-2023 Patient encounter procedure 08/03/2023 11:00 AM [facility] [address] [place] [id number] [place] [address] [facility] [place] [address] [facility] Start: 08-02-2023 End: 08-02-2023 Patient encounter procedure 08/02/2023 1:30 PM EDT Office Visit [facility] [address] [place] [address] [place] [address] Darleen Carlton MD [address] [place] [address] [id number] [facility] Start: 06-02-2023 SHINGRIX VACCINE (1 of 2) SHINGRIX VACCINE (1 of 2) [facility] Immunizations Immunization Date Immunization Notes Care Provider Fa cili 01-10-2023 COVID-19 vaccine, ag e 12+ yr, 2022- season (IM[employer] ([employer])) Penelope Jones PA-C Work Phone: [facility] 01-10-2023 influenza, injectabl e, quadrivalent, contains preservative Penelope Jones PA-C Work Phone: [facility] 12-02-2022 hepatitis B vaccine, adult dosage Al Nurse Work Phone: [facility] Work Phone: 06-29-2022 hepatitis B vaccine, adult dosage Al Nurse Work Phone: [facility] Work Phone: 06-29-2022 hepatitis B vaccine, unspecified formulation Al Nurse Work Phone: [facility] 06-01-2022 hepatitis B vaccine, adult dosage Al Nurse Work Phone: [facility] 06-01-2022 pneumococcal (PCV20) vaccine, 20 valent (PREVNAR 20) Al Nurse Work Phone: [facility] 06-01-2022 pneumococcal Conjuga te, unspecified formulation Get Talampas MD Work Phone: [facility] Work Phone: 03-29-2022 COVID-19 booster vaccine, age 12+ yr, bivalent (PFIZER-BIONTCarmolex,) Al Nurse Work Phone: [facility] 02-15-2022 influenza, seasonal, injectable Mi Nurse Work Phone: [facility] 02-15-2022 influenza virus vaccine, unspecified formulation Penelope Jones PA-C Work Phone: [facility] 02-08-2021 influenza, injectabl e, quadrivalent, contains preservative Valentin Hendrickson MD Work Phone: [facility] 02-29-2020 Influenza, injectabl e, Madin [place] Canine Kidney, preservative free, quadrivalent Valentin Hendrickson MD Work Phone: [facility] Work Phone: 02-29-2020 tetanus toxoid, redu janes diphtheria toxoid, and acellular pertussis vaccine, adsorbed Valentin Hendrickson MD Work Phone: [facility] Work Phone: 11-09-2017 tetanus and diphther ia toxoids, adsorbed, preservative free, for adult use (5 Lf of tetanus toxoid and 2 Lf of diphtheria toxoid) [facility] 03-06-2015 human papilloma viru s vaccine, quadrivalent [facility] Work Phone: 09-29-2014 human papilloma viru s vaccine, quadrivalent [facility] 08-29-2014 human papilloma viru s vaccine, quadrivalent [facility] Payers Date Payer Category Payer Unknown [id number] 2020 Unknown [id number] 2020 Medicare [id number] 2020 Medicare [id number] 2020 Medicare [id number] 2020 Private Health Insurance [employer] DUAL COMPLETE [employer] DUAL COMPLETE [id number] 2020-Present [address] [address] [place] [address] [id number] 2020 Medicaid [id number] 2019 Medicaid [id number] 2019 Medicaid [id number] 2016 Medicare MEDICARE MEDICAR E PART A & B [id number] 2016-Present [place] [id number] 1989 Unknown [id number] 1989 Unknown [id number] 1989 Unknown [id number] [id number]. 903 1989 Unknown [id number] 2.16.840.1.759113.3.579.2. 1069 1989 Unknown [id number] 2.16.840.1.970801.3.579.2. 1069 1989 Unknown [id number] 2.16.840.1.663443.3.579.2. 1069 1989 Unknown [id number] 2.16.840.1.940668.3.579.2. 9 1989 Unknown [id number] 2.16.840.1.928367.3.579.2. 9 1989 Unknown [id number] 2.16.840.1.523581.3.579.2. 9 1989 Unknown [id number] 2.16.840.1.974838.3.579.2. 9 1989 Unknown [id number] 2.16.840.1.621928.3.579.2. 9 1989 Unknown [id number] 2.16.840.1.995748.3.579.2. 1068 1989 Unknown [id number] 2.16.840.1.189791.3.579.2. 1068 1989 Unknown [id number] 2.16.840.1.280135.3.579.2. 9 1989 Unknown [id number] 2.16.840.1.221654.3.579.2. 1068 1989 Unknown [id number] 2.16.840.1.161204.3.579.2. 9 1989 Unknown [id number] 2.16.840.1.926482.3.579.2. 1243 1989 Unknown [id number] 2.16.840.1.304650.3.579.2. 1243 1989 Unknown [id number] 2.16.840.1.852372.3.579.2. 1243 1989 Unknown [id number] 2.16.840.1.860184.3.579.2. 1243 Social History Date Type Detail Facility Start: 02-04-2020 End: 08-03-2022 Tobacco smoking status NHIS Never smoker [facility] Start: 02-04-2020 End: 08-03-2022 Tobacco use and exposure Never used [facility] Start: 02-04-2020 End: 01-10-2023 Alcohol intake Current drinker of alcohol (finding) [facility] Start: 02-04-[address] [facility] Start: 1990 Sex Assigned At Not on file [facility] Start: 06-14-2021 End: 02-09-2023 Exposure to SARS-CoV-2 (event) Not sure [facility] Start: 06-24-2021 End: 08-12-2022 Alcohol intake [facility] Start: 05-16-2020 End: 08-12-2022 History SDOH Alcohol Frequency 2 [facility] Start: 05-16-2020 End: 08-12-2022 History SDOH Alcohol Std Drinks 1 [facility] Start: 07-18-2012 History SDOH Alcohol Comment 0 to 10 drinks per month [facility] Start: 05-16-2020 End: 08-12-2022 History SDOH Social Connections Meetings 98 [facility] Start: 05-16-2020 End: 08-12-2022 History SDOH Social Connections Living 7 [facility] Start: 05-16-2020 End: 08-12-2022 History SDOH Physical Activity DPW 6 [facility] Start: 05-16-2020 End: 08-12-2022 History SDOH Physical Activity MPS 3 [facility] Start: 05-16-2020 Education 21 [facility] Start: 08-04-2021 End: 08-12-2022 Tobacco use panel [facility] Start: 08-12-2022 History SDOH Social Connections Phone 5 [facility] Start: 02-09-2023 Tobacco smoking consumption unknown [facility] Do you belong to any clubs or organizations such as samaritan groups, unions, fraternal or athletic groups, or school groups? No [facility] How often do you att end meetings of the clubs or organizations you belong to? Patient refused [facility] Are you now , , , , never or living with a partner? Never [facility] How often to you hav e a drink containing alcohol? 2-4 times a month [facility] How many standard dr inks containing alcohol do you have on a typical day? 1 or 2 [facility] How often do you hav e 6 or more drinks on 1 occasion? Never [facility] How hard is it for y ou to pay for the very basics like food, housing, medical care, and heating Hard [facility] Do you feel stress - tense, restless, nervous, or anxious, or unable to sleep at night because your mind is troubled all the time - these days [OSQ] To some extent [facility] (I/We) worried wherafaela er (my/our) food would run out before (I/we) got money to buy more. Never true [facility] The food that (I/we) bought just didn't last, and (I/we) didn't have money to get more. Sometimes true [facility] Clinical Notes 01-05-2017 to 03-15-2023 Naman Coy, - 03/15/2023 11:20 AM Radha Ochoa APRN.MUSIC TYPOGRAPHER - 02/15/2023 12:30 PM Sara Fernandez, DO - 02/09/2023 2:47 PM ESTEse Fernandez, DO - 02/09/2023 2:47 PM EST Note Date & Type Note Facility 03-15-2023 Note HNO ID: [id number] Author: Naman Coy DO Service: ? Author Type: Physician Type: Progress Notes Filed: 03/15/2023 11:37 AM Note Text: VIRTUAL VISIT PROGRESS NOTE This is a virtual visit using [employer] Video Visit. It required patient-provider interaction for the medical decision making as documented below. I have communicated my name and active licensure. The patient's identity and physical location were verified at the time of this visit. Either the patient or their legal surgical device sales representative has been informed of the risks and benefits of -- and alternatives to -- treatment through a remote evaluation and consents to proceed with the evaluation remotely. Sukhjinder Nieves is a 33 year old female seen for NT2. HISTORY REVIEWED (electronic chart updated): PAST MEDICAL HISTORY Diagnosis Date Anxiety Class 3 obesity due to excess calories without serious comorbidity with body mass index (BMI) of 40.0 to 44.9 in adult 01/05/2017 Depression Fibromyalgia GERD (gastroesophageal reflux disease) 12/18/2013 Headache(784.0) HTN (hypertension) Hyperlipidemia Narcolepsy Obesity KATHLEEN (obstructive sleep apnea) AHI 10. 12/09/2015 Asha-Schlatter's disease PBA (pseudobulbar affect) Rheumatoid arthritis (HCC) Nonspecific polyarthropathy with neg RF but Dr. Valdez treating as RA, negative RA factor Seasonal allergies PAST SURGICAL HISTORY Procedure Laterality Date EXTRACTION, ERUPTED TOOTH OR EXPOSED ROOT (ELEVATION AND/OR FORCEPS REMOVAL) 2012 HYSTERECTOMY Vaginal hysterectomy; secondary pain and scarring; laparoscpic PAST SURGICAL HISTORY OF 2010 deviated septum VISIAN ICL Bilateral 03/2022 Dr. Turner FAMILY HISTORY Problem Relation Age of Onset Asthma Mother other (chron's) Mother Prostate Cancer Maternal Grandfather Diabetes Maternal Grandfather Stroke Maternal Grandfather Social History Tobacco Use Smoking status: Never Smokeless tobacco: Never Substance Use Topics Alcohol use: Yes Alcohol/week: 1.3 standard drinks of alcohol Types: 1 Mixed Drinks per week Comment: 0 to 10 drinks per month Drug use: No Current Outpatient Medications Medication Sig cycloSPORINE (RESTASIS) 0.05 % ophthalmic emulsion Use 1 Drop in both eyes two times a day. topiramate (TOPAMAX) 100 mg tablet Take 1 tablet by mouth two times a day. As directed for migraines and pain ZOLMitriptan (ZOMIG) 2.5 mg tablet Take 1 tablet (2.5 mg) by mouth as needed. May repeat after 2 hours if 1 pill not adequate ondansetron (ZOFRAN) 4 mg tablet Take 1 tablet by mouth every 8 hours as needed for nausea/vomiting. cyclobenzaprine (FLEXERIL) 10 mg tablet Take 10 mg by mouth daily at bedtime. dextromethorphan 20 mg - quiNIDine 10 mg (NUEDEXTA) 20-10 mg capsule Take 1 capsule by mouth two times a day. pantoprazole DR (PROTONIX) 20 mg tablet Take 1 tablet by mouth once daily. citalopram hydrobromide (CELEXA) 10 mg tablet Take 1 tablet by mouth once daily. metFORMIN (GLUCOPHAGE) 500 mg tablet Take 2 tablet in the am and 1 tablet in the pm x 2 weeks, then increase to 2 tablets twice a day. meloxicam (MOBIC) 15 mg tablet Take 1 tablet by mouth once daily as needed for pain. With food. cholecalciferol (VITAMIN D-3) 5,000 unit tab Take 5,000 Units by mouth once daily. CLARAVIS 40 mg capsule Take 40 mg by mouth once daily. omega-3 fatty acids/fish oil (FISH OIL-OMEGA-3 FATTY ACIDS) 300-1,000 mg cap Take 2 g by mouth. adalimumab (HUMIRA) 40 mg/0.8 mL injection Inject 0.8 mL subcutaneously every 2 weeks. (Patient taking differently: Inject 40 mg subcutaneously every 4 weeks.) COMPOUNDED PRESCRIPTION Allergy injections once monthly. (at home per Dr. Valente Paulino) lidocaine (LIDODERM) 5 % Apply 1 Patch as directed every 24 hours. No current facility-administered medications for this visit. ALLERGIES Allergen Reactions Cymbalta [Duloxetin* Other: See Comments Menstrual cramping / spotting Environmental [Othe* Wellbutrin [Bupropi* Other: See Comments Menstrual cramping / spotting PHYSICAL EXAMINATION: VIDEO EXAM: (if completed, performed via video enabled technology) NEUROLOGIC: no obvious deficit ASSESSMENT/PLAN: Problem List Items Addressed This Visit Narcolepsy without cataplexy Overview HYPERSOMNIA CLASSIFICATION Narcolepsy Type 2 Symptom onset and evolution: EDS: HS Diagnosed 2010 age 20 yr Cataplexy: No SP: No Hallucinations: in HS twice in life. Dreams: no longer remembering dreams in the last few years. Comorbid: fibromyalgia, POTS, RA, pseudobulbar syndrome, hypermobility Sleep pattern cycles from normal to delayed every 6 mo. BT 1-2 am WT 12 pm - 2 pm Not napping much TST 10-12 hours. Trying to shift rhythms but not consistent. PRIOR SLEEP STUDIES: A Polysomnogram performed on 11/2010 revealed an TST 365 min, SE 89%, REML 343 min, AHI of 0.7l; REM index of 6.1, PLM index of 0, oxygen saturation nad (more content not included)... [facility] 03-15-2023 History of Present illness Narrative VIRTUAL VISIT PROGRESS NOTE This is a virtual visit using [employer] Video Visit. It required patient-provider interaction for the medical decision making as documented below. I have communicated my name and active licensure. The patient's identity and physical location were verified at the time of this visit. Either the patient or their legal surgical device sales representative has been informed of the risks and benefits of -- and alternatives to -- treatment through a remote evaluation and consents to proceed with the evaluation remotely. Sukhjinder Nieves is a 33 year old female seen for NT2. HISTORY REVIEWED (electronic chart updated): PAST MEDICAL HISTORY Diagnosis Date Anxiety Class 3 obesity due to excess calories without serious comorbidity with body mass index (BMI) of 40.0 to 44.9 in adult 01/05/2017 Depression Fibromyalgia GERD (gastroesophageal reflux disease) 12/18/2013 Headache(784.0) HTN (hypertension) Hyperlipidemia Narcolepsy Obesity KATHLEEN (obstructive sleep apnea) AHI 10. 12/09/2015 Asha-Schlatter's disease PBA (pseudobulbar affect) Rheumatoid arthritis (HCC) Nonspecific polyarthropathy with neg RF but Dr. Valdez treating as RA, negative RA factor Seasonal allergies PAST SURGICAL HISTORY Procedure Laterality Date EXTRACTION, ERUPTED TOOTH OR EXPOSED ROOT (ELEVATION AND/OR FORCEPS REMOVAL) 2012 HYSTERECTOMY Vaginal hysterectomy; secondary pain and scarring; laparoscpic PAST SURGICAL HISTORY OF 2010 deviated septum VISIAN ICL Bilateral 03/2022 Dr. Turner FAMILY HISTORY Problem Relation Age of Onset Asthma Mother other (chron's) Mother Prostate Cancer Maternal Grandfather Diabetes Maternal Grandfather Stroke Maternal Grandfather Social History Tobacco Use Smoking status: Never Smokeless tobacco: Never Substance Use Topics Alcohol use: Yes Alcohol/week: 1.3 standard drinks of alcohol Types: 1 Mixed Drinks per week Comment: 0 to 10 drinks per month Drug use: No Current Outpatient Medications Medication Sig cycloSPORINE (RESTASIS) 0.05 % ophthalmic emulsion Use 1 Drop in both eyes two times a day. topiramate (TOPAMAX) 100 mg tablet Take 1 tablet by mouth two times a day. As directed for migraines and pain ZOLMitriptan (ZOMIG) 2.5 mg tablet Take 1 tablet (2.5 mg) by mouth as needed. May repeat after 2 hours if 1 pill not adequate ondansetron (ZOFRAN) 4 mg tablet Take 1 tablet by mouth every 8 hours as needed for nausea/vomiting. cyclobenzaprine (FLEXERIL) 10 mg tablet Take 10 mg by mouth daily at bedtime. dextromethorphan 20 mg - quiNIDine 10 mg (NUEDEXTA) 20-10 mg capsule Take 1 capsule by mouth two times a day. pantoprazole DR (PROTONIX) 20 mg tablet Take 1 tablet by mouth once daily. citalopram hydrobromide (CELEXA) 10 mg tablet Take 1 tablet by mouth once daily. metFORMIN (GLUCOPHAGE) 500 mg tablet Take 2 tablet in the am and 1 tablet in the pm x 2 weeks, then increase to 2 tablets twice a day. meloxicam (MOBIC) 15 mg tablet Take 1 tablet by mouth once daily as needed for pain. With food. cholecalciferol (VITAMIN D-3) 5,000 unit tab Take 5,000 Units by mouth once daily. CLARAVIS 40 mg capsule Take 40 mg by mouth once daily. omega-3 fatty acids/fish oil (FISH OIL-OMEGA-3 FATTY ACIDS) 300-1,000 mg cap Take 2 g by mouth. adalimumab (HUMIRA) 40 mg/0.8 mL injection Inject 0.8 mL subcutaneously every 2 weeks. (Patient taking differently: Inject 40 mg subcutaneously every 4 weeks.) COMPOUNDED PRESCRIPTION Allergy injections once monthly. (at home per Dr. Valente Paulino) lidocaine (LIDODERM) 5 % Apply 1 Patch as directed every 24 hours. No current facility-administered medications for this visit. ALLERGIES Allergen Reactions Cymbalta [Duloxetin* Other: See Comments Menstrual cramping / spotting Environmental [Othe* Wellbutrin [Bupropi* Other: See Comments Menstrual cramping / spotting PHYSICAL EXAMINATION: VIDEO EXAM: (if completed, performed via video enabled technology) NEUROLOGIC: no obvious deficit ASSESSMENT/PLAN: Problem List Items Addressed This Visit Narcolepsy without cataplexy Overview HYPERSOMNIA CLASSIFICATION Narcolepsy Type 2 Symptom onset and evolution: EDS: HS Diagnosed 2011 age 20 yr Cataplexy: No SP: No Hallucinations: in HS twice in life. Dreams: no longer remembering dreams in the last few years. Comorbid: fibromyalgia, POTS, RA, pseudobulbar syndrome, hypermobility Sleep pattern cycles from normal to delayed every 6 mo. BT 1-2 am WT 12 pm - 2 pm Not napping much TST 10-12 hours. Trying to shift rhythms but not consistent. PRIOR SLEEP STUDIES: A Polysomnogram performed on 11/2010 revealed an TST 365 min, SE 89%, REML 343 min, AHI of 0.7l; REM index of 6.1, PLM index of 0, oxygen saturation ge 90%. A Multiple Sleep Latency Test performed on 11/2010 revealed a mean sleep latency of 4.7 minutes and 3/5 sleep onset REM periods (naps 3, 4, 5). A Polysomnogram performed on 11/2015 revealed an AHI of 10.7; supine index of 13.5; and a minimum oxygen saturation of 93%. Past treatments: Modafinil (2010, 1 day) Armodafinil (2 wk) - both may have worsened knee pain. Methylphenidate (2010) Dexamphetamine (2010) - both caused dizziness, out of her body sensation; she built up tolerance in 3 d, elevated BP. SO (2012, 1 mo): not effective - woke up once and felt terrified, called special pharmacy and then stopped. Clarithromycin (2013, Dr. Harvey, 2 mo): not effective. Solriamfetol 150 mg (01/2023-) She has not been on any meds for narcolepsy since 2013. Now tolerated solriamfetol 150 mg which is making her more alert. No side effects. Feels she has abnormal response to meds. Fate anesthesia didn't affect her, can drink lots of alcohol and feel peripheral effects but not intoxication, no effect of narcoleptics. Diagnosed with pseudobulbar affect attributed to narcolepsy. 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 Currently sleeping from 2 am to 2 pm but this is not the norm. Describes numerous scenarios of insensitivity to medications, drugs and alcohol ? pharmacogenetic abnormality. She has not been treated for narcolepsy for 10 years but feels EDS is worsening. Now tolerating solriamfetol 150 mg per day with improvement in EDS. She also believes she has adult onset ADD which is affecting daytime functioning. Return 6 months with me. Could pursue [employer] testing with out of pocket cost. I spent a total of 20 minutes on the date of the service which included preparing to see the patient, [id number] patient care, completing clinical documentation, counseling and educating the patient/family/caregiver, and ordering medications, tests, or procedures. Naman Garza DO documented in this encounter [facility] 02-15-2023 Note HNO ID: [id number] Author: Radha Callahan APRN.MUSIC TYPOGRAPHER Service: ? Author Type: Nurse Practitioner Type: Progress Notes Filed: 02/15/2023 12:52 PM Note Text: BMI Obesity Medicine Follow-Up Note - VIRTUAL VISIT February 15, 2023 This Team Access Model visit is a virtual encounter. I have communicated my name and active licensure. The patient's identity and physical location were verified at the time of this visit. Either the patient or their legal surgical device sales representative has been informed of the risks and benefits of -- and alternatives to -- treatment through a remote evaluation and consents to proceed with the evaluation remotely. Patient Summary: is 33 year old female who presents for follow-up evaluation of her obesity and related complications to the [facility] Bariatric and Metabolic [place]. Initial program/last visit weight: 211 lbs [November 2022] Today's weight: 207 lbs Recent Weight history: Last Wt 02/15/23 : 93.9 kg (207 lb) 01/10/23 : 97.1 kg (214 lb) 01/03/23 : 95.3 kg (210 lb) 12/28/22 : 96.6 kg (213 lb) Assessement/plan from last visit: -Through mutual decision making the patient will try to follow a time restricted eating program (11/16). Suggested incorporate the adult portion plate specifically the [place] healthy eating guidelines to ensure the healthiest choices from macronutrients.. -Discussed the 6 mindful eating tips that she should follow daily. -I will delay starting any medications that could interact with stimulants. She has an appointment with sleep medicine (December 28, 2022) regarding underlying narcolepsy. She has been on several stimulants in the past that have not been effective. I will only consider beginning phentermine if she has not started on a stimulant as a recommendation of the sleep specialist. -Continue the topiramate 100 mg twice a day which is being used for migraine prophylaxis. -Discussed potentially starting the extended release form of naltrexone/bupropion but this option is cost prohibitive. -Plan to increase the metformin by 500 mg every 2 weeks until on 1000 mg twice a day. -Follow-up visit in 2 to 3 months for management of above interventions HPI: PT specifies the following items as new or significant updates since the last appointment: Last visit was with Dr. Perez in November. Reports weight is decreased since the last visit. Metformin was increased at her initial visit in November. Tolerated dose increase. No side effects. Had visit with BMI [facility]. Diagnosed with hypermobility and degenerative disk disease. Completed physical therapy. Additionally had 2 ER visits for ovarian cysts since last visit. Back pain and cyst pain has been limiting activity. Saw sleep med. Started Solriamfetol/Sunosi. Anti-obesity medication: Metformin 1000 mg BID Side effects: no side effects Started: November 2022 Starting weight: 211 lb Dietary changes: Time-Restricted Eating Seeing cutting pressman Increasing protein Exercise: decreased with back pain and ovarian cysty Planning to resume gym routine soon Stress: stable Sleep: stable Continues with sleep medicine for narcolepsy Started Sunosi Weight graph: PAST MEDICAL HISTORY Diagnosis Date Anxiety Class 3 obesity due to excess calories without serious comorbidity with body mass index (BMI) of 40.0 to 44.9 in adult 01/05/2017 Depression Fibromyalgia GERD (gastroesophageal reflux disease) 12/18/2013 Headache(784.0) HTN (hypertension) Hyperlipidemia Narcolepsy Obesity KATHLEEN (obstructive sleep apnea) AHI 10. 12/09/2015 Asha-Schlatter's disease PBA (pseudobulbar affect) Rheumatoid arthritis (HCC) Nonspecific polyarthropathy with neg RF but Dr. Valdez treating as RA, negative RA factor Seasonal allergies Current Outpatient Medications Medication Sig Dispense Refill topiramate (TOPAMAX) 100 mg tablet Take 1 tablet by mouth two times a day. As directed for migraines and pain 180 tablet 3 ZOLMitriptan (ZOMIG) 2.5 mg tablet Take 1 tablet (2.5 mg) by mouth as needed. May repeat after 2 hours if 1 pill not adequate 18 tablet 3 ondansetron (ZOFRAN) 4 mg tablet Take 1 tablet by mouth every 8 hours as needed for nausea/vomiting. 30 tablet 1 cyclobenzaprine (FLEXERIL) 10 mg tablet Take 10 mg by mouth daily at bedtime. dextromethorphan 20 mg - quiNIDine 10 mg (NUEDEXTA) 20-10 mg capsule Take 1 capsule by mouth two times a day. 60 capsule 2 solriamfetoL 150 mg tablet (SUNOSI) Take 1/2 tab upon morning awakening for 2 weeks. Then increase to 1 tab on awakening. [address] (PROTONIX) 20 mg tablet Take 1 tablet by mouth once daily. 90 tablet 3 citalopram hydrobromide (CELEXA) 10 mg tablet Take 1 tablet by mouth once daily. 90 tablet 3 metFORMIN (GLUCOPHAGE) 500 mg tablet Take 2 tablet in the am and 1 tablet in the pm x 2 weeks, then increase to 2 tablets twice a day. 120 tablet 5 meloxicam (MOBIC) 15 mg tablet Take 1 tablet (more content not included)... [facility] 02-15-2023 History of Present illness Narrative Images from the original note were not included. BMI Obesity Medicine Follow-Up Note - VIRTUAL VISIT February 15, 2023 This Team Access Model visit is a virtual encounter. I have communicated my name and active licensure. The patient's identity and physical location were verified at the time of this visit. Either the patient or their legal surgical device sales representative has been informed of the risks and benefits of -- and alternatives to -- treatment through a remote evaluation and consents to proceed with the evaluation remotely. Patient Summary: is 33 year old female who presents for follow-up evaluation of her obesity and related complications to the [facility] Bariatric and Metabolic [place]. Initial program/last visit weight: 211 lbs [November 2022] Today's weight: 207 lbs Recent Weight history: Last Wt 02/15/23 : 93.9 kg (207 lb) 01/10/23 : 97.1 kg (214 lb) 01/03/23 : 95.3 kg (210 lb) 12/28/22 : 96.6 kg (213 lb) Assessement/plan from last visit: -Through mutual decision making the patient will try to follow a time restricted eating program (11/16). Suggested incorporate the adult portion plate specifically the [place] healthy eating guidelines to ensure the healthiest choices from macronutrients.. -Discussed the 6 mindful eating tips that she should follow daily. -I will delay starting any medications that could interact with stimulants. She has an appointment with sleep medicine (December 28, 2022) regarding underlying narcolepsy. She has been on several stimulants in the past that have not been effective. I will only consider beginning phentermine if she has not started on a stimulant as a recommendation of the sleep specialist. -Continue the topiramate 100 mg twice a day which is being used for migraine prophylaxis. -Discussed potentially starting the extended release form of naltrexone/bupropion but this option is cost prohibitive. -Plan to increase the metformin by 500 mg every 2 weeks until on 1000 mg twice a day. -Follow-up visit in 2 to 3 months for management of above interventions HPI: PT specifies the following items as new or significant updates since the last appointment: Last visit was with Dr. Perez in November. Reports weight is decreased since the last visit. Metformin was increased at her initial visit in November. Tolerated dose increase. No side effects. Had visit with BMI [address]. Diagnosed with hypermobility and degenerative disk disease. Completed physical therapy. Additionally had 2 ER visits for ovarian cysts since last visit. Back pain and cyst pain has been limiting activity. Saw sleep med. Started Solriamfetol/Sunosi. Anti-obesity medication: Metformin 1000 mg BID Side effects: no side effects Started: November 2022 Starting weight: 211 lb Dietary changes: Time-Restricted Eating Seeing cutting pressman Increasing protein Exercise: decreased with back pain and ovarian cysty Planning to resume gym routine soon Stress: stable Sleep: stable Continues with sleep medicine for narcolepsy Started Sunosi Weight graph: PAST MEDICAL HISTORY Diagnosis Date Anxiety Class 3 obesity due to excess calories without serious comorbidity with body mass index (BMI) of 40.0 to 44.9 in adult 01/05/2017 Depression Fibromyalgia GERD (gastroesophageal reflux disease) 12/18/2013 Headache(784.0) HTN (hypertension) Hyperlipidemia Narcolepsy Obesity KATHLEEN (obstructive sleep apnea) AHI 10. 12/09/2015 Oakley-Schlatter's disease PBA (pseudobulbar affect) Rheumatoid arthritis (HCC) Nonspecific polyarthropathy with neg RF but Dr. Valdez treating as RA, negative RA factor Seasonal allergies Current Outpatient Medications Medication Sig Dispense Refill topiramate (TOPAMAX) 100 mg tablet Take 1 tablet by mouth two times a day. As directed for migraines and pain 180 tablet 3 ZOLMitriptan (ZOMIG) 2.5 mg tablet Take 1 tablet (2.5 mg) by mouth as needed. May repeat after 2 hours if 1 pill not adequate 18 tablet 3 ondansetron (ZOFRAN) 4 mg tablet Take 1 tablet by mouth every 8 hours as needed for nausea/vomiting. 30 tablet 1 cyclobenzaprine (FLEXERIL) 10 mg tablet Take 10 mg by mouth daily at bedtime. dextromethorphan 20 mg - quiNIDine 10 mg (NUEDEXTA) 20-10 mg capsule Take 1 capsule by mouth two times a day. 60 capsule 2 solriamfetoL 150 mg tablet (SUNOSI) Take 1/2 tab upon morning awakening for 2 weeks. Then increase to 1 tab on awakening. [address] (PROTONIX) 20 mg tablet Take 1 tablet by mouth once daily. 90 tablet 3 citalopram hydrobromide (CELEXA) 10 mg tablet Take 1 tablet by mouth once daily. 90 tablet 3 metFORMIN (GLUCOPHAGE) 500 mg tablet Take 2 tablet in the am and 1 tablet in the pm x 2 weeks, then increase to 2 tablets twice a day. 120 tablet 5 meloxicam (MOBIC) 15 mg tablet Take 1 tablet by mouth once daily as needed for pain. With food. 30 tablet 2 cholecalciferol (VITAMIN D-3) 5,000 unit tab Take 5,000 Units by mouth once daily. CLARAVIS 40 mg capsule Take 40 mg by mouth once daily. cycloSPORINE (RESTASIS) 0.05 % ophthalmic emulsion Use 1 Drop in both eyes twice daily. 90 Each 3 omega-3 fatty acids/fish oil (FISH OIL-OMEGA-3 FATTY ACIDS) 300-1,000 mg cap Take 2 g by mouth. adalimumab (HUMIRA) 40 mg/0.8 mL injection Inject 0.8 mL subcutaneously every 2 weeks. (Patient taking differently: Inject 40 mg subcutaneously every 4 weeks.) 6 Each 0 COMPOUNDED PRESCRIPTION Allergy injections once monthly. (at home per Dr. Valente Paulino) 0 lidocaine (LIDODERM) 5 % Apply 1 Patch as directed every 24 hours. No current facility-administered medications for this visit. Denies chest pain, sob, palpitations, elevated heart rate or blood pressure. Denies abdominal pain, constipation, diarrhea, nausea, vomiting, or GERD. Denies trouble swallowing, hoarseness. Denies paresthesias, insomnia, grogginess, anxiety, mood changes, or flank pain. Physical exam:Ht 177.8 cm (5' 10 ) Wt 93.9 kg (207 lb) LMP 06/15/2015 BMI 29.70 kg/m VIDEO EXAM: (if done, performed via video enabled technology) GENERAL: alert and appropriate, in no distress, well-hydrated, well nourished, and happy, smiling, interactive Results: CBC Latest Ref Rng & Units 01/10/2023 WBC 3.70 - 11.00 k/uL 9.20 RBC 3.90 - 5.20 m/uL 4.21 HEMOGLOBIN 11.5 - 15.5 g/dL 13.6 HEMOGLOBIN, CARLOS 11.5 - 15.5 g/dL - HEMATOCRIT 36.0 - 46.0 % 41.1 MCV 80.0 - 100.0 fL 97.6 MCV, CARLOS 80.0 - 100.0 fL - MCH 26.0 - 34.0 pg 32.3 MCH, CARLOS 26.0 - 34.0 pg - MCHC 30.5 - 36.0 g/dL 33.1 MCHC, CARLOS 30.5 - 36.0 g/dL - RDW, CARLOS 11.5 - 15.0 % - RDW-CV 11.5 - 15.0 % 14.0 PLATELETS 150 - 400 k/uL 297 MPV 9.0 - 12.7 fL 11.1 MPV, CARLOS 9.0 - 12.7 fL - NEUT%, CARLOS 39.5 - 74.0 % - MONO%, CARLOS 0.0 - 12.0 % - EOS%, CARLOS 0.0 - 6.6 % - BASO% % - BASO%, CARLOS 0.0 - 1.2 % - ABS NEUT (ANC) 1.45 - 7.50 k/uL - ABS NEUT, CARLOS 1.45 - 7.50 k/uL - ABS LYMP, CARLOS 1.00 - 4.00 k/uL - ABS LYMPH 1.00 - 4.00 k/uL - ABS MONO 0.00 - 0.86 k/uL - ABS MONO, CARLOS 0.00 - 0.86 k/uL - ABS EOS, CARLOS 0.00 - 0.45 k/uL - ABS EOSIN 0.00 - 0.45 k/uL - ABS BASO 0.00 - 0.10 k/uL - ABS BASO, CARLOS 0.00 - 0.10 k/uL - DIFF TYPE - - Cholesterol, Total (mg/dL) Date Value 08/17/2022 226 09/01/2021 164 05/30/2020 185 11/30/2017 210 HDL Cholesterol (mg/dL) Date Value 09/01/2021 40 05/30/2020 45 11/30/2017 38 LDL Cholesterol (mg/dL) Date Value 09/01/2021 111 05/30/2020 129 11/30/2017 147 Triglyceride (mg/dL) Date Value 08/17/2022 65 09/01/2021 66 05/30/2020 55 11/30/2017 126 CMP Latest Ref Rng & Units 01/10/2023 SODIUM 136 - 144 mmol/L 137 SODIUM, CARLOS 132 - 148 mmol/L - SODIUM, CARLOS 132 - 148 mmol/L - POTASSIUM 3.7 - 5.1 mmol/L 3.7 POTASSIUM, CARLOS 3.5 - 5.0 mmol/L - CHLORIDE 97 - 105 mmol/L 105 CHLORIDE, CARLOS 98 - 110 mmol/L - CO2 22 - 30 mmol/L 19(L) CO2, CARLOS 23.0 - 32.0 mmol/L - GLUCOSE 74 - 99 mg/dL 78 GLUCOSE, CARLOS 65 - 100 mg/dL - BUN 7 - 21 mg/dL 11 BUN, CARLOS 10 - 25 mg/dL - CREATININE 0.58 - 0.96 mg/dL 0.58 CREATININE, CARLOS 0.7 - 1.4 mg/dL - EGFR >=60 mL/min/1.73m 122 EGFR-ALL OTHER RACES . - EGFR- - - PROTEIN, TOTAL 6.3 - 8.0 g/dL 6.9 ALBUMIN 3.9 - 4.9 g/dL 4.4 ALBUMIN, URINE (PROT ELECTRO) % - CALCIUM, CARLOS 8.5 - 10.5 mg/dL - CALCIUM, 24 HR URINE 100 - 300 mg/24 hr - CALCIUM, TOTAL 8.5 - 10.2 mg/dL 9.6 BILIRUBIN, TOTAL 0.2 - 1.3 mg/dL 0.2 AST 13 - 35 U/L 15 ALT 7 - 38 U/L 9 ALKALINE PHOSPHATASE, TOTAL 33 - 115 U/L - ALKALINE PHOSPHATASE 34 - 123 U/L 68 Estimated Creatinine Clearance: 169.8 mL/min (based on SCr of 0.58 mg/dL). Hemoglobin A1C (%) Date Value 12/23/2015 5.3 Assessment/Plan: Sukhjinder Nieves is a 33 year old female with Class I obesity who presents today for supervised weight loss follow-up. Patient has been successful with the personalized nutrition and physical activity plan we discussed last visit. Patient has lost 4 lbs/2% TBW from last visit and since initiating medical weight management in November 2022. - Appropriate response to increasing her metformin and tolerating the medication. - Continue topiramate 100 mg BID which is being used for migraine prophylaxis. - She plans on increasing exercise regimen as tolerated once pain improves. - We discussed alternative anti-obesity medication options if she would be interested in adding medication: Incretin agents such as GLP-1 RA/GIP [Mounjaro, Ozempic, Wegovy, Saxenda] are reasonable as she denies any personal or family history of medullary thyroid cancer or MEN 2, pancreatitis, cholecystitis, suicide attempt, or significant thyroid nodules. However, likely limited by insurance coverage/cost. Phentermine is not a good option due to narcolepsy and elevated HR. Has trialed several stimulants in the past that have not been effective. She recently started Sunosi which is not a stimulant, however, does carry risk of increasing BP/HR, especially when combined with phentermine. Her heart rate at recent office visits has been consistently > 100 bpm. Would avoid phentermine for now. Already taking topiramate 100 mg BID for migraines. Bupropion/naltrexone is reasonable as she does not have history of seizures, glaucoma, uncontrolled hypertension, anorexia nervosa, bulimia, drug or opioid use, alcohol use, or mood/bipolar disorder. We reviewed this may be prescribed generically to make it cheaper but she would like to hold off on this for now. Taking maximum metformin. - Shared decision made to continue metformin, she would like to hold off on adding medication at this time. Main option would be generic bupropion + naltrexone to mimic brand name Contrave. - Additional agents that may be useful in the future are GLP-1/GIP, bupropion/naltrexone. - Agents that are currently contraindicated in this case are n/a. Caution phentermine (narcolepsy). Follow-up visit for management of above interventions in 3 mos. I spent a total of 20 minutes on the date of the service which included preparing to see the patient, [id number] patient care, completing clinical documentation, obtaining and/or reviewing separately obtained history, performing a medically appropriate examination, counseling and educating the patient/family/caregiver, and ordering medications, tests, or procedures. This visit was performed virtually due to the COVID-19 epidemic as an effort to protect patients and minimize exposure. Radha Callahan, MSN, CLEARING INSPECTOR, RN CLINICAL-C [facility] Bariatric & Metabolic [place] [address], [address] [place] [address] documented in this encounter [facility] 02-09-2023 Emergency department Note Emergency Medicine Transition of Care Note. I received Sukhjinder Nieves in signout from Dr. Rasmussen. Please see the previous ED provider note for all HPI, PE and MDM up to the time of signout at 1900. This is in addition to the primary record. In brief Sukhjinder Nieves is an 33 y.o. female presenting for Chief Complaint Patient presents with Abdominal Pain Pt is c/o lower abdominal pain that started last night. At the time of signout we were awaiting: US of Pelvis. Diagnoses as of 02/09/232011 Cyst of right ovary Lower abdominal pain US pelvis Final Result Surgically absent uterus. Right ovarian complex follicle measuring 1.9 x 1.3 x 1.4 cm, previously measured 3.2 x 3.2 x 3.7 cm. Normal color and spectral Doppler flow within the right ovary. Nonvisualization of the left ovary. Signed by Philipp Pa MD CT abdomen pelvis w IV contrast Final Result Small amount of free fluid is seen within the dependent pelvis, nonspecific in nature. Findings could be physiologic and/or reactive in nature. Ruptured ovarian cyst could have a similar appearance. For additional evaluation with dedicated pelvic ultrasound should be determined clinically. Few scattered colonic diverticula without CT evidence for acute diverticulitis. Signed by Jame Storey MD Medical Decision Making I did go over all the results with the patient. Patient is to call her inside wireman tomorrow for further evaluation and treatment. Patient is stable upon discharge. Final diagnoses: [N83.201] Cyst of right ovary [R10.30] Lower abdominal pain Procedure Procedures DO Ese Telles DO 02/09/232012 documented in this encounter [facility] Work Phone: 02-09-2023 Physician Emergency department Note Emergency Medicine Transition of Care Note. I received Sukhjinder Nieves in signout from Dr. Rasmussen. Please see the previous ED provider note for all HPI, PE and MDM up to the time of signout at 1900. This is in addition to the primary record. In brief Sukhjinder Nieves is an 33 y.o. female presenting for Chief Complaint Patient presents with Abdominal Pain Pt is c/o lower abdominal pain that started last night. At the time of signout we were awaiting: US of Pelvis. Diagnoses as of 02/09/232011 Cyst of right ovary Lower abdominal pain US pelvis Final Result Surgically absent uterus. Right ovarian complex follicle measuring 1.9 x 1.3 x 1.4 cm, previously measured 3.2 x 3.2 x 3.7 cm. Normal color and spectral Doppler flow within the right ovary. Nonvisualization of the left ovary. Signed by Philipp Pa MD CT abdomen pelvis w IV contrast Final Result Small amount of free fluid is seen within the dependent pelvis, nonspecific in nature. Findings could be physiologic and/or reactive in nature. Ruptured ovarian cyst could have a similar appearance. For additional evaluation with dedicated pelvic ultrasound should be determined clinically. Few scattered colonic diverticula without CT evidence for acute diverticulitis. Signed by Jame Storey MD Medical Decision Making I did go over all the results with the patient. Patient is to call her inside wireman tomorrow for further evaluation and treatment. Patient is stable upon discharge. Final diagnoses: [N83.201] Cyst of right ovary [R10.30] Lower abdominal pain Procedure Procedures DO Ese Telles DO 02/09/232012 [facility] Work Phone: 01-31-2023 Miscellaneous Notes Phone call placed brief message to contact a nurse to review provider recommendation. Currently Sweta Jones is unable to prescribe requested medication, [phone]. Alma Johns message sent, last log on 01/25/2023. Jayla Mars LPN Patient returned call. She says she already has a diagnosis of PBA. She says her insurance requires Nuedexta be prescribed by a Neuro provider and not by her PCP. She says she saw Penelope BLUE on 12/14/22 for POTS and did not discuss PBA nor prescribing Nuedexta but she is asking if Penelope is willing to prescribe this medication for her? Appointment scheduled on 01/31/23 cancelled per patient request. (See initial note) Tiana Arevalo, RN TC to pt with no answer, left VM to return call. Pt has appointment tomorrow with Penelope for PBA, pt will need to be cancelled and rescheduled with the neuromuscular department with an MD per provider. Inez Curiel LPN documented in this encounter [facility] 01-13-2023 Note HNO ID: [id number] Author: Carol Ann Donnelly RT(R) Service: Nuclear Medicine Author Type: Technologist Type: Progress Notes Filed: 01/13/2023 1:33 PM Note Text: RADIOLOGY SERVICE PROGRESS NOTE SERVICE DATE: 01/13/2023 SERVICE TIME: 08:15 AM PATIENT IDENTITY VERIFICATION COMPLETED USING TWO (2) STANDARD IDENTIFIERS: Name and Date of confirmed by patient verbally FALL SCREENING: Has the patient had 2 falls in the last year or 1 fall with injury or currently using an Ambulatory Assistive Device (Walker, Cane, Wheelchair, Crutches, etc.)? No PATIENT GENDER DATA: .female : No status: No ALLERGIES: Reviewed and unchanged MEDICATIONS REVIEWED: No PATIENT RELEVANT IMPLANT DATA REVIEWED: Not Applicable CREATININE: Creatinine Date Value Ref Range Status 01/10/2023 0.58 0.58 - 0.96 mg/dL Final 09/01/2021 0.85 0.58 - 0.96 mg/dL Final 05/30/2020 0.71 0.58 - 0.96 mg/dL Final Estimated Glomerular Filtration Rate Date Value Ref Range Status 01/10/2023 122 >=60 mL/min/1.73m? Final Comment: Estimated Glomerular Filtration Rate (eGFR) is calculated using the 2020 CKD-EPI creatinine equation. This equation utilizes serum creatinine, sex, and age as parameters. The creatinine assay has traceable calibration to isotope dilution-mass spectrometry. Refer to KDIGO guidelines for clinical interpretation. In patients with unstable renal function, e.g. those with acute kidney injury, the eGFR may not accurately reflect actual GFR. eGFR- Date Value Ref Range Status 05/30/2020 >60 Final P.O.C.T. RESULTS: N/A January 13, [address] PERFORMED: No IV SITE: NM only - not applicable, oral or physician administered agents given to patient POST EXAM PIV STATUS: Discontinued PROCEDURE TYPE: NM GET: 1.12 mCi Tc99m SULFUR COLLOID was administered orally via 4 ounces of Egg Beaters,2 pieces of toast, 1 ounce of jelly with 8 ounces of water orally ADMINISTRATION TIME: 08:30 PATIENT DISCHARGED TO: Ambulatory patient, left DC department area. A Diagnostic radioactive procedure has taken place, with no further precautions necessary other than routine body substance precautions. More information regarding radiation safety can be found using this link: [email or web address]%20Med [email or web address] SIGNATURE: RT Mariusz(R) PATIENT NAME: Sukhjinder Hassan [place] DATE: January 13, 2023 TIME: 12:45 PM PAGER/CONTACT #: [facility] 01-13-2023 History of Present illness Narrative RADIOLOGY SERVICE PROGRESS NOTE SERVICE DATE: 01/13/2023 SERVICE TIME: 08:15 AM PATIENT IDENTITY VERIFICATION COMPLETED USING TWO (2) STANDARD IDENTIFIERS: Name and Date of confirmed by patient verbally FALL SCREENING: Has the patient had 2 falls in the last year or 1 fall with injury or currently using an Ambulatory Assistive Device (Walker, Cane, Wheelchair, Crutches, etc.)? No PATIENT GENDER DATA: .female : No status: No ALLERGIES: Reviewed and unchanged MEDICATIONS REVIEWED: No PATIENT RELEVANT IMPLANT DATA REVIEWED: Not Applicable CREATININE: Creatinine Date Value Ref Range Status 01/10/2023 0.58 0.58 - 0.96 mg/dL Final 09/01/2021 0.85 0.58 - 0.96 mg/dL Final 05/30/2020 0.71 0.58 - 0.96 mg/dL Final Estimated Glomerular Filtration Rate Date Value Ref Range Status 01/10/2023 122 >=60 mL/min/1.73m Final Comment: Estimated Glomerular Filtration Rate (eGFR) is calculated using the 2020 CKD-EPI creatinine equation. This equation utilizes serum creatinine, sex, and age as parameters. The creatinine assay has traceable calibration to isotope dilution-mass spectrometry. Refer to KDIGO guidelines for clinical interpretation. In patients with unstable renal function, e.g. those with acute kidney injury, the eGFR may not accurately reflect actual GFR. eGFR- Date Value Ref Range Status 05/30/2020 >60 Final P.O.C.T. RESULTS: N/A January 13, [address] PERFORMED: No IV SITE: NM only - not applicable, oral or physician administered agents given to patient POST EXAM PIV STATUS: Discontinued PROCEDURE TYPE: NM GET: 1.12 mCi Tc99m SULFUR COLLOID was administered orally via 4 ounces of Egg Beaters,2 pieces of toast, 1 ounce of jelly with 8 ounces of water orally ADMINISTRATION TIME: 08:30 PATIENT DISCHARGED TO: Ambulatory patient, left DC department area. A Diagnostic radioactive procedure has taken place, with no further precautions necessary other than routine body substance precautions. More information regarding radiation safety can be found using this link: [email or web address] ear%[email or web address] SIGNATURE: LYLE Vee) PATIENT NAME: Sukhjinder Nieves DATE: January 13, 2023 TIME: 12:45 PM PAGER/CONTACT #: documented in this encounter [facility] 01-10-2023 Note HNO ID: [id number] Author: Get Osman MD Service: ? Author Type: Physician Type: Progress Notes Filed: 02/11/2023 1:44 AM Note Text: This note was created using [employer]. Subjective Sukhjinder Nieves is a 33 year old female. Patient presents with: Recheck SUBJECTIVE: Sukhjinder Nieves is a 33 year old year old lady here today for follow up appointment for review of medical conditions. 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 Referred for PT in [place]. Also doing PT for hypermobility. Will see genetics specialist in . Was having stomach issues. Doing some better. Feels like taking longer through bowels. Esophagus was okay but has hiatal hernia. Feels like something flipping in there. Will see General Surgeon for evaluation. [facility]. Protonix doing okay now. Tenderness in epigastrium less. Doing fine on rest of meds. Migraines controlled fairly well. Has new POTS doctor. Insurance told her that Nuedexta was not denied--just canceled. Back in counseling. Maybe ADHD. PAST MEDICAL HISTORY Diagnosis Date Anxiety Class 3 obesity due to excess calories without serious comorbidity with body mass index (BMI) of 40.0 to 44.9 in adult 01/05/2017 Depression Fibromyalgia GERD (gastroesophageal reflux disease) 12/18/2013 Headache(784.0) HTN (hypertension) Hyperlipidemia Narcolepsy Obesity KATHLEEN (obstructive sleep apnea) AHI 10. 12/09/2015 Asha-Schlatter's disease PBA (pseudobulbar affect) Rheumatoid arthritis (HCC) Nonspecific polyarthropathy with neg RF but Dr. Valdez treating as RA, negative RA factor Seasonal allergies Current Outpatient Medications Medication Sig topiramate (TOPAMAX) 100 mg tablet Take 1 tablet by mouth two times a day. As directed for migraines and pain ZOLMitriptan (ZOMIG) 2.5 mg tablet Take 1 tablet (2.5 mg) by mouth as needed. May repeat after 2 hours if 1 pill not adequate ondansetron (ZOFRAN) 4 mg tablet Take 1 tablet by mouth every 8 hours as needed for nausea/vomiting. solriamfetoL 150 mg tablet (SUNOSI) Take 1/2 tab upon morning awakening for 2 weeks. Then increase to 1 tab on awakening. pantoprazole DR (PROTONIX) 20 mg tablet Take 1 tablet by mouth once daily. citalopram hydrobromide (CELEXA) 10 mg tablet Take 1 tablet by mouth once daily. metFORMIN (GLUCOPHAGE) 500 mg tablet Take 2 tablet in the am and 1 tablet in the pm x 2 weeks, then increase to 2 tablets twice a day. meloxicam (MOBIC) 15 mg tablet Take 1 tablet by mouth once daily as needed for pain. With food. cholecalciferol (VITAMIN D-3) 5,000 unit tab Take 5,000 Units by mouth once daily. CLARAVIS 40 mg capsule Take 40 mg by mouth once daily. cycloSPORINE (RESTASIS) 0.05 % ophthalmic emulsion Use 1 Drop in both eyes twice daily. omega-3 fatty acids/fish oil (FISH OIL-OMEGA-3 FATTY ACIDS) 300-1,000 mg cap Take 2 g by mouth. adalimumab (HUMIRA) 40 mg/0.8 mL injection Inject 0.8 mL subcutaneously every 2 weeks. (Patient taking differently: Inject 40 mg subcutaneously every 4 weeks.) COMPOUNDED PRESCRIPTION Allergy injections once monthly. (at home per Dr. Valente Paulino) lidocaine (LIDODERM) 5 % Apply 1 Patch as directed every 24 hours. cyclobenzaprine (FLEXERIL) 10 mg tablet Take 10 mg by mouth daily at bedtime. No current facility-administered medications for this visit. Review of Systems Objective BP 105/71 Pulse 109 Temp 36.3 ?C (97.4 ?F) Resp 18 Wt 97.1 kg (214 lb) LMP 06/15/2015 SpO2 99% BMI 30.71 kg/m? Physical Exam Constitutional: Appearance: Normal appearance. HENT: Head: Normocephalic. Eyes: Conjunctiva/sclera: Conjunctivae normal. Cardiovascular: Rate and Rhythm: Normal rate and regular rhythm. Heart sounds: Normal heart sounds. Pulmonary: Effort: Pulmonary effort is normal. Breath sounds: Normal breath sounds. Musculoskeletal: Right lower leg: No edema. Left lower leg: No edema. Skin: General: Skin is warm and dry. Neurological: General: No focal deficit present. Mental Status: She is alert and oriented to person, place, and time. Psychiatric: Attention and Perception: Attention and perception normal. Mood and Affect: Mood normal. Behavior: Behavior normal. Thought Content: Thought content normal. Judgment: Judgment normal. Prior labs noted. Assessment and Plan Encounter Diagnosis ICD-10-CM 1. Obesity, Class I, BMI 30-34.9 E66.9 topiramate (TOPAMAX) 100 mg tablet VITAMIN D 25 HYDROXY TSH BLD T4 FREE/FREE THYROX T3 FREE BLD COMP METABOLIC PANEL CBC VITAMIN B12 BLOOD IRON + TIBC FOLATE SERUM FERRITIN BLD 2. Migraine without aura and without status migrainosus, not intractable G43.009 topiramate (TOPAMAX) 100 mg tablet ZOLMitriptan (ZOMIG) 2.5 mg tablet 3. Other chronic pain G89.29 topiramate (TOPAMAX) 100 mg tablet 4. Chronic fatigue R53.82 VITAMIN D 25 HYDROXY TSH BLD T4 FREE/FREE THYROX T3 FREE BLD COMP METABOLIC PANEL CBC (more content not included)... [facility] 2023 Miscellaneous Notes Images from the original note were not included. A PA has been submitted via [place]. Insurance Company Name: [facility] medicare Insurance Company Phone Number: Medication and dose: Sunosi 150 mg BARRERA: [id number] documented in this encounter [facility] 01-03-2023 Note HNO ID: [id number] Author: Noman Phelps RD Service: ? Author Type: Registered Dietitian Type: Progress Notes Filed: 01/03/2023 3:34 PM Note Text: The [facility] Nutrition Therapy: Virtual Consult - Initial Assessment I have communicated my name and active licensure. The patient?s identity and physical location were verified at the time of this visit. Either the patient or their legal surgical device sales representative has been informed of the risks and benefits of -- and alternatives to -- treatment through a remote evaluation and consents to proceed with the evaluation remotely. Nutrition Diagnosis: Overweight/obesity, related to, food/nutrition - related knowledge deficit, as evidenced by BMI above normative standard for age and gender. RECOMMENDED MALNUTRITION DIAGNOSIS: NO MALNUTRITION IDENTIFIED NUTRITION CARE PLAN Nutrition Intervention 01/03/2023: 1. Try to not skip meals. 2. Use protein shake 1x per day to replace any skipped meals or for breakfast 3. Use the Healthy Plate Method of portion control for lunch and dinner 4 oz lean meat (fish, chicken, pork tenderloin, turkey, seafood, eggs/cheese 1/2 plate non starchy vegetables (salad, greens, cabbage, spinach, brussels sprouts, broccoli, carrots, celery, peppers, green beans, cauliflower) 1 cup starch/starchy vegetables (corn, peas, frye beans, winter squash, sweet potato, rice, pasta, potato) 4. Continue physical activity with a goal of 150 min of aerobic exercise per week. Include strength exercises 2-3 times per week 5. Drink 64 ounces per day water and other 0 calorie beverages Nutrition Monitoring AND Evaluation: 1-2 pound weight loss per week Need for Follow up: 3 months Patient presents for initial nutrition consult to discuss nutrition therapy adjunct to medically supervised weight loss, managed by Dr. Perez. Height and weight discussed today; BMI 30.1, Class 1 obesity. Initial weight in November 2022 was 211 lbs, resulting in a 1 lb weight loss, reflecting a 0.5% TWL in 2 months. Significant co morbidities include HLD, GERD, and KATHLEEN. Most recent lab results reveal high total cholesterol. Patient taking Topamax and Metformin. Patient denies any effects of the medication. Weight loss expectations are high; expecting to lose 40 lbs. Realistic weight loss expectations discussed. Motivation for weight loss includes improved health. Previous diet attempts include regular exercise and self directed directed diets. Weight history significant for 60 lb weight loss in the last 3 years with self directed diets and exercise. Barriers to weight loss includes chronic fatigue. Diet recall reveals an inconsistent meal pattern with regularly skipping lunch. Most meals include mainly protein and carbohydrates with some vegetables. Protein intake is likely inadequate with skipping meals. Fluid intake is inadequate with less than 64 oz water per day; patient has been decreasing her sugar sweetened beverage intake. She meets recommended 150+ minutes physical activity with a combination of cardio and strength training, Lack of quality sleep may limit desired weight loss. Patient's symptoms are: Weight Concerns: failure to lose weight Diet History: Breakfast - swedish yogurt with granola OR shredded wheat cereal with milk and fruit Snack - none Lunch - skips Snack - none Dinner - 04/06 c wheat pasta with soy crumbles, red sauce; 1 piece garlic break on the side OR frozen dinner: Amys meal OR mini frozen pizza OR eggplant parmesan OR chicken pot pie Snack - none Beverages - 3-4 c water, 2 c milk, sometimes 1 bottle soda pop, sometimes diluted juice Alcohol- occasionally Vitamins/Supplements - vitamin D OTC Activity: Activities of Daily Living: Sedentary (Desk job, seated for most of the day) Additional Activity: Moderately active (Moderate intensity exercise: Planned physical activity 3-5 days/week) PT 2x a week for 45 minutes; walking 2x a week for 30+ minutes Other Diet Details -eats slowly and stops when satisfied -denies emotional eating -reports low quality sleep: narcolepsy -vegetables a few times per week -stress is moderate, tries to cope Anthropometrics: Height: Last 1 Encounter Ht Readings: Date: Ht: 01/03/2023 177.8 cm (5' 10 ) Weight: Last 1 Encounter Wt Readings: Date: Wt: 01/03/2023 95.3 kg (210 lb) Body mass index is 30.13 kg/m?. Resting Metabolic Rate: 1741 Malnutrition Screening Significant unintentional weight loss? No Eating less than 75% of usual intake for more than 2 weeks? No Potential Signs of Inflammation: no identifiable sources Education Materials Provided: Healthy Lunch/Dinner Plate and Snack Ideas READINESS TO LEARN Cognitive ability: Alert and oriented Motivation to learn: Interested Family support: High - Very involved in pt care Instruction provided to: Patient Patient learns best by: Multiple Methods Factors affecting learning: None (more content not included)... [facility] 12-28-2022 Note HNO ID: [id number] Author: Naman Coy, DO Service: ? 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 Some comorbidities not contributing to sleep presentation. Patient interested in new agents or clinical trial. Will assess eligibility and determine next steps. I spent a total of 45 minutes on the date of the service taking the patient's history and developing a plan with the patient on the phone. Interval history : Here for follow up for hypersomnia PATIENT-ENTERED QUESTIONNAIRE SLEEP SCORES Sleep Questions 11/25/2021 Reason for visit: Sleep apnea, Difficulty falling or staying asleep or poor sleep quality, Excessive daytime sleepiness, Narcolepsy Average hours slept in 24 hours: 12 Accidents or near accidents due to drowsy drivin [place] Sleepiness Scale 11/25/2021 Score 15 (present daytime sleepiness) PROMIS CAT Sleep Disturbance 11/25/2021 PROMIS Sleep Disturbance T-Score 49 (within normal limits) PROMIS Sleep Disturbance Percentile 54 % PHQ-9 05/16/2020 02/08/2021 11/25/2021 Score 10 12 12 PROMIS Global Health - (T-Scores - the mean of general population = 50. Five points is a clinically meaningful difference.) 02/08/2021 11/25/2021 08/12/2022 Physical T-Score 37.4 34.9 34.9 Mental T-Score 36.3 36.3 41.1 PMH, PSH, SH: reviewed ALLERGIES Allergen Reactions Cymbalta [Duloxetin* Other: See Comments Menstrual cramping / spotting Environmental [Othe* Wellbutrin [Bupropi* Other: See Comments Menstrual cramping / spotting CURRENT MEDICATIONS: pantoprazole DR (PROTONIX) 20 mg tablet Take 1 tablet by mouth once daily. citalopram hydrobromide (CELEXA) 10 mg tablet Take 1 tablet by mouth once daily. metFORMIN (GLUCOPHAGE) 500 mg tablet Take 2 tablet in the am and 1 tablet in the pm x 2 weeks, then increase to 2 tablets twice a day. topiramate (TOPAMAX) 100 mg tablet Take 1 tablet by mouth twice daily. As directed for migraines and pain meloxicam (MOBIC) 15 mg tablet Take 1 tablet by mouth once daily as needed for pain. With food. cholecalciferol (VITAMIN D-3) 5,000 unit tab Take 5,000 Units by mouth once daily. CLARAVIS 40 mg capsule Take 40 mg by mouth once daily. (Patient not taking: Reported on 12/27/2022) cycloSPORINE (RESTASIS) 0.05 % ophthalmic emulsion Use 1 Drop in both eyes twice daily. ZOLMitriptan (ZOMIG) 2.5 mg tablet Take 1 tablet by mouth as needed. May repeat after 2 hours if 1 pill not adequate omega-3 fatty acids/fish oil (FISH OIL-OMEGA-3 FATTY ACIDS) 300-1,000 mg cap Take 2 g by mouth. ondansetron (ZOFRAN) 4 mg tablet Take 1 tablet by mouth every 8 hours as needed for nausea/vomiting. adalimumab (HUMIRA) 40 mg/0.8 mL injection Inject 0.8 mL subcutaneously every 2 weeks. (Patient taking differently: Inject 40 mg subcutaneously every 4 weeks.) COMPOUNDED PRESCRIPTION Allergy injections once monthly. (at home per Dr. Valente Paulino) lidocaine (LIDODERM) 5 % Apply 1 Patch as directed every 24 hours. PHYSICAL EXAMINATION: Vital Signs: BP 106/64 (BP Site: Left Arm, BP Position: Sitting, BP Cuff Size: Regular Adult) Pulse 109 Ht 175.9 cm (5' 9.25 ) Wt 96.6 kg (213 lb) LMP 06/15/2015 SpO2 98% BMI 31.23 kg/m? PHYSICAL EXAM: General appearance: In NAD. Neuro: Alert and oriented. Normal speech and mental status. EOMI. No tremor. Normal gait. IMPRESSION/PLAN: Problem List Items Addressed This Visit Narcolepsy without cataplexy Overview HYPERSOMNIA CLASSIFICATION Narcolepsy Type 2 Symptom onset and evolution: EDS: HS Diagnosed 2011 age 20 yr Cataplexy: No SP: No Hallucinations: in HS twice in life. Dreams: no longer remembering dreams in the last few years. Comorbid: fibromyalgia, POTS, RA, pseudobulbar syndrome, hypermobility Sleep pattern cycles from normal to delayed every 6 mo. BT 2-3 am WT 12 pm - 2 am Not napping much PRIOR SLEEP STUDIES: A Polysomnogram performed on 11/2010 revealed an TST 365 min, SE 89%, REML 343 min, AHI of 0.7l; REM index of 6.1, PLM index of 0, oxygen saturation ge 90%. A Multiple Sleep Latency Test performed on 11/2010 revealed a mean sleep latency of 4.7 minutes and 3/5 sleep onset REM periods (naps 3, 4, 5). A Polysomnogram performed on 11/2015 revealed an AHI of 10.7; supine index of 13.5; and a minimum oxygen saturation of 93%. Past treatments: Modafinil (2010, 1 day) Armodafinil (2 wk) - both may have worsened knee pain. Methylphenidate (2010) Dexamphetamine (2010) - both caused dizziness, out of her body sensation; she built up tolerance in 3 d, elevated BP. SO (2012, 1 mo): not effective - woke up once and felt terrified, called [facility] (more content not included)... [facility] 12-28-2022 Instructions Naman Coy DO - 12/28/2022 4:05 PM EDT Images from the original note were not included. [facility] documented in this encounter [facility] 12-28-2022 History of Present illness Narrative Images from the original note were not included. 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 Some comorbidities not contributing to sleep presentation. Patient interested in new agents or clinical trial. Will assess eligibility and determine next steps. I spent a total of 45 minutes on the date of the service taking the patient's history and developing a plan with the patient on the phone. Interval history : Here for follow up for hypersomnia PATIENT-ENTERED QUESTIONNAIRE SLEEP SCORES Sleep Questions 11/25/2021 Reason for visit: Sleep apnea, Difficulty falling or staying asleep or poor sleep quality, Excessive daytime sleepiness, Narcolepsy Average hours slept in 24 hours: 12 Accidents or near accidents due to drowsy drivin [place] Sleepiness Scale 11/25/2021 Score 15 (present daytime sleepiness) PROMIS CAT Sleep Disturbance 11/25/2021 PROMIS Sleep Disturbance T-Score 49 (within normal limits) PROMIS Sleep Disturbance Percentile 54 % PHQ-9 05/16/2020 02/08/2021 11/25/2021 Score 10 12 12 PROMIS Global Health - (T-Scores - the mean of general population = 50. Five points is a clinically meaningful difference.) 02/08/2021 11/25/2021 08/12/2022 Physical T-Score 37.4 34.9 34.9 Mental T-Score 36.3 36.3 41.1 PMH, PSH, SH: reviewed ALLERGIES Allergen Reactions Cymbalta [Duloxetin* Other: See Comments Menstrual cramping / spotting Environmental [Othe* Wellbutrin [Bupropi* Other: See Comments Menstrual cramping / spotting CURRENT MEDICATIONS: pantoprazole DR (PROTONIX) 20 mg tablet Take 1 tablet by mouth once daily. citalopram hydrobromide (CELEXA) 10 mg tablet Take 1 tablet by mouth once daily. metFORMIN (GLUCOPHAGE) 500 mg tablet Take 2 tablet in the am and 1 tablet in the pm x 2 weeks, then increase to 2 tablets twice a day. topiramate (TOPAMAX) 100 mg tablet Take 1 tablet by mouth twice daily. As directed for migraines and pain meloxicam (MOBIC) 15 mg tablet Take 1 tablet by mouth once daily as needed for pain. With food. cholecalciferol (VITAMIN D-3) 5,000 unit tab Take 5,000 Units by mouth once daily. CLARAVIS 40 mg capsule Take 40 mg by mouth once daily. (Patient not taking: Reported on 12/27/2022) cycloSPORINE (RESTASIS) 0.05 % ophthalmic emulsion Use 1 Drop in both eyes twice daily. ZOLMitriptan (ZOMIG) 2.5 mg tablet Take 1 tablet by mouth as needed. May repeat after 2 hours if 1 pill not adequate omega-3 fatty acids/fish oil (FISH OIL-OMEGA-3 FATTY ACIDS) 300-1,000 mg cap Take 2 g by mouth. ondansetron (ZOFRAN) 4 mg tablet Take 1 tablet by mouth every 8 hours as needed for nausea/vomiting. adalimumab (HUMIRA) 40 mg/0.8 mL injection Inject 0.8 mL subcutaneously every 2 weeks. (Patient taking differently: Inject 40 mg subcutaneously every 4 weeks.) COMPOUNDED PRESCRIPTION Allergy injections once monthly. (at home per Dr. Valente Paulino) lidocaine (LIDODERM) 5 % Apply 1 Patch as directed every 24 hours. PHYSICAL EXAMINATION: Vital Signs: BP 106/64 (BP Site: Left Arm, BP Position: Sitting, BP Cuff Size: Regular Adult) Pulse 109 Ht 175.9 cm (5' 9.25 ) Wt 96.6 kg (213 lb) LMP 06/15/2015 SpO2 98% BMI 31.23 kg/m PHYSICAL EXAM: General appearance: In NAD. Neuro: Alert and oriented. Normal speech and mental status. EOMI. No tremor. Normal gait. IMPRESSION/PLAN: Problem List Items Addressed This Visit Narcolepsy without cataplexy Overview HYPERSOMNIA CLASSIFICATION Narcolepsy Type 2 Symptom onset and evolution: EDS: HS Diagnosed 2010 age 20 yr Cataplexy: No SP: No Hallucinations: in HS twice in life. Dreams: no longer remembering dreams in the last few years. Comorbid: fibromyalgia, POTS, RA, pseudobulbar syndrome, hypermobility Sleep pattern cycles from normal to delayed every 6 mo. BT 2-3 am WT 12 pm - 2 am Not napping much PRIOR SLEEP STUDIES: A Polysomnogram performed on 11/2010 revealed an TST 365 min, SE 89%, REML 343 min, AHI of 0.7l; REM index of 6.1, PLM index of 0, oxygen saturation ge 90%. A Multiple Sleep Latency Test performed on 11/2010 revealed a mean sleep latency of 4.7 minutes and 3/5 sleep onset REM periods (naps 3, 4, 5). A Polysomnogram performed on 11/2015 revealed an AHI of 10.7; supine index of 13.5; and a minimum oxygen saturation of 93%. Past treatments: Modafinil (2010, 1 day) Armodafinil (2 wk) - both may have worsened knee pain. Methylphenidate (2010) Dexamphetamine (2010) - both caused dizziness, out of her body sensation; she built up tolerance in 3 d, elevated BP. SO (2012, 1 mo): not effective - woke up once and felt terrified, called [facility] and then stopped. Clarithromycin (2013, Dr. Harvey, 2 mo): not effective. She has not been on any meds for narcolepsy since 2013. Feels she has abnormal response to meds. Fate anesthesia didn't affect her, can drink lots of alcohol and feel peripheral effects but not intoxication, no effect of narcoleptics. Diagnosed with pseudobulbar affect attributed to narcolepsy. 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 Currently sleeping from 2 am to 2 pm but this is not the norm. Describes numerous scenarios of insensitivity to medications, drugs and alcohol ? pharmacogenetic abnormality. She has not been treated for narcolepsy for 10 years but feels EDS is worsening. She also believes she has adult onset ADD which is affecting daytime functioning. Agreed to a trial of solriamfetol 75>150 mg per day. Return VV in 4-6 weeks. Could pursue [facility] testing with out of pocket cost. Relevant Medications solriamfetoL 150 mg tablet (SUNOSI) I spent a total of 30 minutes on the date of the service which included preparing to see the patient, [id number] patient care, completing clinical documentation, performing a medically appropriate examination, counseling and educating the patient/family/caregiver, and ordering medications, tests, or procedures. Naman Garza DO documented in this encounter [facility] 12-27-2022 Note HNO ID: [id number] Author: Tawnya Wise APRN.MUSIC TYPOGRAPHER Service: ? Author Type: Nurse Practitioner Type: Progress Notes Filed: 12/27/2022 12:49 PM Note Text: SUBJECTIVE Sukhjinder Nieves is a 32 year old female here today for a check up on her medical problems. Chief Complaint Patient presents with: poor appetite: started about 1 week ago. Had feeling that pantoprazole was not working as it had been. Stomach not emptying as it should and has poor appetite and uncomfortable full feeling HPI Sukhjinder Nieves is a 32 year old female.Concerns of some stomach issues. Onset a week ago with not feeling great. Has been on pantoprazole for reflux for years. Recently had some worsening in reflux. Feels like she is feeling her hernia in the middle of abdomen. Feels like stomach is taking a long time to empty or not emptying. No vomiting. Decreased appetite. Some nausea. No bowel changes. Prior upper scope with Dr. Arana? Prior gastric emptying and barium swallow. Prior h pylori. Her medications were reviewed today and her list is now up to date. Medications Current Outpatient Medications Medication Sig pantoprazole DR (PROTONIX) 20 mg tablet Take 1 tablet by mouth once daily. citalopram hydrobromide (CELEXA) 10 mg tablet Take 1 tablet by mouth once daily. metFORMIN (GLUCOPHAGE) 500 mg tablet Take 2 tablet in the am and 1 tablet in the pm x 2 weeks, then increase to 2 tablets twice a day. topiramate (TOPAMAX) 100 mg tablet Take 1 tablet by mouth twice daily. As directed for migraines and pain meloxicam (MOBIC) 15 mg tablet Take 1 tablet by mouth once daily as needed for pain. With food. cholecalciferol (VITAMIN D-3) 5,000 unit tab Take 5,000 Units by mouth once daily. cycloSPORINE (RESTASIS) 0.05 % ophthalmic emulsion Use 1 Drop in both eyes twice daily. ZOLMitriptan (ZOMIG) 2.5 mg tablet Take 1 tablet by mouth as needed. May repeat after 2 hours if 1 pill not adequate omega-3 fatty acids/fish oil (FISH OIL-OMEGA-3 FATTY ACIDS) 300-1,000 mg cap Take 2 g by mouth. ondansetron (ZOFRAN) 4 mg tablet Take 1 tablet by mouth every 8 hours as needed for nausea/vomiting. adalimumab (HUMIRA) 40 mg/0.8 mL injection Inject 0.8 mL subcutaneously every 2 weeks. (Patient taking differently: Inject 40 mg subcutaneously every 4 weeks.) COMPOUNDED PRESCRIPTION Allergy injections once monthly. (at home per Dr. Valente Paulino) lidocaine (LIDODERM) 5 % Apply 1 Patch as directed every 24 hours. CLARAVIS 40 mg capsule Take 40 mg by mouth once daily. (Patient not taking: Reported on 12/27/2022) No current facility-administered medications for this visit. ALLERGIES Allergen Reactions Cymbalta [Duloxetin* Other: See Comments Menstrual cramping / spotting Environmental [Othe* Wellbutrin [Bupropi* Other: See Comments Menstrual cramping / spotting ACTIVE PROBLEM LIST Obesity, Class I, Bmi 30-34.9 - 08/17/2022 Rheumatoid Arthritis of Multiple Sites With Negative Rheumatoid Factor (Hcc) - 10/25/2019 Obesity (Bmi 35.0-39.9 Without Comorbidity) - 06/16/2016 Vitreous Floaters of Both Eyes - 06/09/2016 Dry Eyes, Bilateral - 06/09/2016 Postural Orthostatic Tachycardia Syndrome - 05/03/2016 Allergic Conjunctivitis of Both Eyes - 03/17/2016 KATHLEEN (obstructive sleep apnea) AHI 10. - 12/09/2015 Hypercalcemia - 12/04/2015 Low Vitamin D Level - 09/28/2015 Gerd (Gastroesophageal Reflux Disease) - 12/18/2013 Myalgia and Myositis - 03/02/2013 Pba (Pseudobulbar Affect) - 02/21/2013 Hyperlipidemia Oakley-Schlatter's Disease Anxiety Depression Headache Seasonal Allergies Elevated Blood Pressure Social History Tobacco Use Smoking status: Never Smokeless tobacco: Never Substance Use Topics Alcohol use: Yes Alcohol/week: 2.5 standard drinks of alcohol Types: 1 Mixed Drinks per week Comment: 0 to 10 drinks per month Drug use: No Review of Systems Respiratory: Negative. Cardiovascular: Negative. OBJECTIVE BP 100/68 Pulse 102 Wt 209 lb (94.8kg) SpO2 98% LMP 06/15/2015 Physical Exam Vitals and nursing note reviewed. Constitutional: General: She is awake. She is not in acute distress. Appearance: Normal appearance. She is well-developed and well-groomed. She is not ill-appearing, toxic-appearing or diaphoretic. HENT: Head: Normocephalic. Right Ear: External ear normal. Left Ear: External ear normal. Nose: Nose normal. Eyes: General: Vision grossly intact. Conjunctiva/sclera: Conjunctivae normal. Pupils: Pupils are equal, round, and reactive to light. Neck: Vascular: No JVD. Trachea: Trachea normal. Pulmonary: Effort: Pulmonary effort is normal. No accessory muscle usage, prolonged expiration or respiratory distress. Musculoskeletal: Cervical back: Neck supple. Skin: General: Skin is warm and dry. Capillary Refill: Capillary refill takes less than 2 seconds. Neurological: General: No focal deficit present. Mental Status: Sh (more content not included)... [facility] 12-27-2022 History of Present illness Narrative SUBJECTIVE Sukhjinder Nieves is a 32 year old female here today for a check up on her medical problems. Chief Complaint Patient presents with: poor appetite: started about 1 week ago. Had feeling that pantoprazole was not working as it had been. Stomach not emptying as it should and has poor appetite and uncomfortable full feeling HPI Sukhjinder Nieves is a 32 year old female.Concerns of some stomach issues. Onset a week ago with not feeling great. Has been on pantoprazole for reflux for years. Recently had some worsening in reflux. Feels like she is feeling her hernia in the middle of abdomen. Feels like stomach is taking a long time to empty or not emptying. No vomiting. Decreased appetite. Some nausea. No bowel changes. Prior upper scope with Dr. Arana? Prior gastric emptying and barium swallow. Prior h pylori. Her medications were reviewed today and her list is now up to date. Medications Current Outpatient Medications Medication Sig pantoprazole DR (PROTONIX) 20 mg tablet Take 1 tablet by mouth once daily. citalopram hydrobromide (CELEXA) 10 mg tablet Take 1 tablet by mouth once daily. metFORMIN (GLUCOPHAGE) 500 mg tablet Take 2 tablet in the am and 1 tablet in the pm x 2 weeks, then increase to 2 tablets twice a day. topiramate (TOPAMAX) 100 mg tablet Take 1 tablet by mouth twice daily. As directed for migraines and pain meloxicam (MOBIC) 15 mg tablet Take 1 tablet by mouth once daily as needed for pain. With food. cholecalciferol (VITAMIN D-3) 5,000 unit tab Take 5,000 Units by mouth once daily. cycloSPORINE (RESTASIS) 0.05 % ophthalmic emulsion Use 1 Drop in both eyes twice daily. ZOLMitriptan (ZOMIG) 2.5 mg tablet Take 1 tablet by mouth as needed. May repeat after 2 hours if 1 pill not adequate omega-3 fatty acids/fish oil (FISH OIL-OMEGA-3 FATTY ACIDS) 300-1,000 mg cap Take 2 g by mouth. ondansetron (ZOFRAN) 4 mg tablet Take 1 tablet by mouth every 8 hours as needed for nausea/vomiting. adalimumab (HUMIRA) 40 mg/0.8 mL injection Inject 0.8 mL subcutaneously every 2 weeks. (Patient taking differently: Inject 40 mg subcutaneously every 4 weeks.) COMPOUNDED PRESCRIPTION Allergy injections once monthly. (at home per Dr. Valente Paulino) lidocaine (LIDODERM) 5 % Apply 1 Patch as directed every 24 hours. CLARAVIS 40 mg capsule Take 40 mg by mouth once daily. (Patient not taking: Reported on 12/27/2022) No current facility-administered medications for this visit. ALLERGIES Allergen Reactions Cymbalta [Duloxetin* Other: See Comments Menstrual cramping / spotting Environmental [Othe* Wellbutrin [Bupropi* Other: See Comments Menstrual cramping / spotting ACTIVE PROBLEM LIST Obesity, Class I, Bmi 30-34.9 - 08/17/2022 Rheumatoid Arthritis of Multiple Sites With Negative Rheumatoid Factor (Hcc) - 10/25/2019 Obesity (Bmi 35.0-39.9 Without Comorbidity) - 06/16/2016 Vitreous Floaters of Both Eyes - 06/09/2016 Dry Eyes, Bilateral - 06/09/2016 Postural Orthostatic Tachycardia Syndrome - 05/03/2016 Allergic Conjunctivitis of Both Eyes - 03/17/2016 KATHLEEN (obstructive sleep apnea) AHI 10. - 12/09/2015 Hypercalcemia - 12/04/2015 Low Vitamin D Level - 09/28/2015 Gerd (Gastroesophageal Reflux Disease) - 12/18/2013 Myalgia and Myositis - 03/02/2013 Pba (Pseudobulbar Affect) - 02/21/2013 Hyperlipidemia Oakley-Schlatter's Disease Anxiety Depression Headache Seasonal Allergies Elevated Blood Pressure Social History Tobacco Use Smoking status: Never Smokeless tobacco: Never Substance Use Topics Alcohol use: Yes Alcohol/week: 2.5 standard drinks of alcohol Types: 1 Mixed Drinks per week Comment: 0 to 10 drinks per month Drug use: No Review of Systems Respiratory: Negative. Cardiovascular: Negative. OBJECTIVE BP 100/68 Pulse 102 Wt 209 lb (94.8kg) SpO2 98% LMP 06/15/2015 Physical Exam Vitals and nursing note reviewed. Constitutional: General: She is awake. She is not in acute distress. Appearance: Normal appearance. She is well-developed and well-groomed. She is not ill-appearing, toxic-appearing or diaphoretic. HENT: Head: Normocephalic. Right Ear: External ear normal. Left Ear: External ear normal. Nose: Nose normal. Eyes: General: Vision grossly intact. Conjunctiva/sclera: Conjunctivae normal. Pupils: Pupils are equal, round, and reactive to light. Neck: Vascular: No JVD. Trachea: Trachea normal. Pulmonary: Effort: Pulmonary effort is normal. No accessory muscle usage, prolonged expiration or respiratory distress. Musculoskeletal: Cervical back: Neck supple. Skin: General: Skin is warm and dry. Capillary Refill: Capillary refill takes less than 2 seconds. Neurological: General: No focal deficit present. Mental Status: She is alert and oriented to person, place, and time. Mental status is at baseline. Psychiatric: Attention and Perception: Attention and perception normal. Mood and Affect: Mood and affect normal. Speech: Speech normal. Behavior: Behavior normal. Behavior is cooperative. Thought Content: Thought content normal. Cognition and Memory: Cognition and memory normal. Judgment: Judgment normal. ASSESSMENT/PLAN: 1. Hiatal hernia - ICD9: 553.3, ICD10: K44.9 (primary diagnosis) No recent imaging, check esophagram and get gastric emptying done. Refer to general surgery for EGD discussion and depending on imaging possible hiatal hernia repair. - CONSULT TO GENERAL SURGERY - XR ESOPHAGRAM 2. Gastroesophageal reflux disease without esophagitis - ICD9: 530.81, ICD10: K21.9 - CONSULT TO GENERAL SURGERY - XR ESOPHAGRAM 3. Dyspepsia - ICD9: 536.8, ICD10: R10.13 - NM GASTRIC EMPTYING SOLID - CONSULT TO GENERAL SURGERY Portions of this note have been entered by ancillary staff. I have reviewed and when necessary edited, so that they are an adequate record of my encounter with this patient Please note that parts of this document were created using voice recognition software and therefore may contain grammatical errors. Patient verbalizes understanding of instructions from today's visit and in agreement with treatment plan. Questions answered. Agrees to call the office if questions, concerns of issues with acute symptoms not improving or if they worsen. See diagnoses and orders for additional plan(s). Allergies and medications were reviewed, list was updated, and refills given if needed. Past medical, surgical, social, and family history reviewed and updated as appropriate. Encouraged proper diet & exercise as well as compliance with taking medications. Age-appropriate health preventative measures were discussed. Return if symptoms worsen or fail to improve, for Keep next scheduled appointment.. OLIVIA Moore documented in this encounter [facility] 12-14-2022 Note HNO ID: [id number] Author: Penelope Jones PA-C Service: ? Author Type: Physician Handle Lathe Operator Type: Progress Notes Filed: 12/14/2022 3:20 PM Note Text: Neurology Outpatient Clinic Date: December 14, 2022 Patient Name: Sukhjinder Nieves Referring physician: Antonio Rene Jr [address] [facility] [id number] Consult requested for POTS by Dr. Rene. Recommendations will be communicated via shared medical record or US mail. Primary physician: Get Osman [address] [place] [address] Reason for Evaluation: POTS Subjective HPI Sukhjinder Nieves is a 32 year old right-handed female who presents for evaluation of POTS. Dr. Rene is the referring physician. Dr. Get Osman MD is the PCP. Chart review: Telephone encounter 12/06/22 Phone call placed to patient reported last seen Dr. Rene in 2019, Dx POTS 2017, recent concerns dizziness, cold extremities, rin fog. Tilt in 2017 with evidence of POTS. Patient presents to establish neurology, previously following with Dr. Rene for POTS. Extensive work-up revealed POTS, but with no signs of neuropathy, autoimmune disease or other abnormality. Patient does note that she is currently being worked up for EDS and has appointment scheduled in the next few months. Notes that she was diagnosed with POTS in 2017, at that time she was extremely symptomatic with positional lightheadedness, blood pooling and skin changes to the legs. However, she notes that over the years as she has improved exercise, weight loss that she has significantly improved. Notes that today she is primarily just reestablishing, has no new concerns or symptoms. Does note positional lightheadedness, but this is primarily with going from a squatting position to a standing position, occasionally from sitting to standing. Notes that she has never had any episodes of syncope, only presyncope. Also endorses occasional room spinning dizziness as well with this sitting to standing. Also notes that over the years her nausea has resolved as well. Drinks about 3 to 4 glasses of water a day, eat salty foods but does take an extra salt. Notes that she tried salt tablets in the past but this gave her GI irritation. Notes that she is currently going to physical therapy twice a week for possible EDS and also goes to the gym regularly. Tried compression in the past, but this was not effective for her. Autonomic check list: YES (Y) or NO (N) Dry mouth-y Dry eyes-y Change in sweat- has hyperhydrosis Constipation- n Abdominal Bloating with shortly after eating- n Fluctuation of diarrhea and constipation- n Urination- n Change in taste- no Challenge swallowing foods- n Skin changes of blue or redness to distal limbs- when it first started Fainting /near syncope/syncope- yes Dizziness- sometimes Light headiness- sometimes Chest pain- no Challenge in breathing- short of breath sometimes Tachycardia- yes Temperature Regulation- hot flashes and cold flashes Bright lights- somewhat sensitive Dry Vagina- no Medications: Current Outpatient Medications Medication Sig Dispense Refill pantoprazole DR (PROTONIX) 20 mg tablet Take 1 tablet by mouth once daily. 90 tablet 3 citalopram hydrobromide (CELEXA) 10 mg tablet Take 1 tablet by mouth once daily. 90 tablet 3 metFORMIN (GLUCOPHAGE) 500 mg tablet Take 2 tablet in the am and 1 tablet in the pm x 2 weeks, then increase to 2 tablets twice a day. 120 tablet 5 topiramate (TOPAMAX) 100 mg tablet Take 1 tablet by mouth twice daily. As directed for migraines and pain 60 tablet 3 meloxicam (MOBIC) 15 mg tablet Take 1 tablet by mouth once daily as needed for pain. With food. 30 tablet 2 cholecalciferol (VITAMIN D-3) 5,000 unit tab Take 5,000 Units by mouth once daily. CLARAVIS 40 mg capsule Take 40 mg by mouth once daily. ZOLMitriptan (ZOMIG) 2.5 mg tablet Take 1 tablet by mouth as needed. May repeat after 2 hours if 1 pill not adequate 6 tablet 11 omega-3 fatty acids/fish oil (FISH OIL-OMEGA-3 FATTY ACIDS) 300-1,000 mg cap Take 2 g by mouth. adalimumab (HUMIRA) 40 mg/0.8 mL injection Inject 0.8 mL subcutaneously every 2 weeks. (Patient taking differently: Inject 40 mg subcutaneously every 4 weeks.) 6 Each 0 COMPOUNDED PRESCRIPTION Allergy injections once monthly. (at home per Dr. Valente Paulino) 0 cycloSPORINE (RESTASIS) 0.05 % ophthalmic emulsion Use 1 Drop in both eyes twice daily. 90 Each 3 ondansetron (ZOFRAN) 4 mg tablet Take 1 tablet by mouth every 8 hours as needed for nausea/vomiting. 30 tablet 1 lidocaine (LIDODERM) 5 % Apply 1 Patch as directed every 24 hours. No current facility-administered medications for this visit. ROS ROS: Her ROS was positive for that mentioned in the HPI. Otherwise a 10-point ROS was completed and was negative. ALLERGIES Allergen Reactions Cymbalta [Duloxetin* Other: Se (more content not included)... [facility] 12-14-2022 Instructions Penelope Jones PA-C - 12/14/2022 2:51 PM EDT POTS Conservative Measures Increased water intake (2-2.5 liters of water daily) Increased salt intake (3-5 grams daily) Compression stockings (or abdominal compression) Cardiac Rehab/ increased Exercise Shared medical appointment with Dr. Callahan POTS Manual: Read the POTS manual online. This will help you understand your POTS diagnosis, work with your medical team, and includes detailed instructions and tips for improved daily living with POTS. [email or web address] ts Orthostatic Workout There are videos /playlist/podcast to viewed and helped for exercises and wellness for POTS and Orthostatics Instructions:https://www.[employer]. com/[email or web address] hDA In your search bar in the internet go type YOU TUBE 2. Search in the YOU TUBE search bar Jaleel Orthostatic Exercises 3. Select Beginner Introduction Beginner Orthostatic Workout . This is for starting out . 4. As you advance the Beginner Orthostatic Workout may be next step or integrated into the Beginner work out 5. There is a video for breathing exercise to calm the adrenaline and heart rate that you can do independent and often Tips you can watch the video as often you want Subscribe to the video channel for updates Can integrate into the videos into your other fitness regimen May share along this YOU TUBE channel to other POTS patients, family and support people Also follow us along on SnapAppointments account POT[place] Also besides the exercise are some cristopher mediation videos . Click and watch. Utilize when your adrenaline is active. May even play music to go along. Play the video as often you want to help as an additional tool to reset the adrenaline https://www.[employer].com/watch?v=h REr4uCjLR3 https://www.[employer].com/watch?v=c 6rMgyI-3pU&feature=youtu.be https://www.youtube.com/watch?v=K 3uQ8qOuL89 Shared Medical Appointments To schedule the ZOOM POTS SMA please call during Monday-Monday 9 am - 4 pm , THE CALL CENTER # [phone] The CALL CENTER IS OPEN 24 hours/ 7 DAYS PER WEEK Please be patient with the phone line. We are honored and glad to have you part of the SMA for POTS Welcome to ZOOM POTS SMA (SHARED MEDICAL APPOINTMENTS) We have learned at the [facility] and especially in my work and our department that POTS that there is so much to learn to live well with this condition. So much of the emphasis needs to be on life tips of education, body awareness, community, exercise , daily life tips, and the psychology of living well with POTS. The SMA is done by Nicole Fajardo our POTS Experience Officer Who has POTS also and I. I have been doing SMA for 6 years for POTS. We have even published the benefit of the SMA for POTS. We used to do the SMA in person, but during the pandemic we are starting to do them via ZOOM. For years I have been wanting to do the SMA as a virtual format like ZOOM. About 10 patients can attends and can invite someone. The ZOOM SMA is a safe space to be supported. We do request to allow your face to be seen and courtesy language. The session is about 90 minutes long. We will have a topic, questions, and answers. The sessions are not recorded. We encourage about 3 ZOOM SMA in a year. I hope you can attend. This should greatly help you for wellness and better heal [place], Dr. Callahan and the Autonomic Team Scheduling Phone numbers [facility] Central Scheduling [phone] Neurological [place] Scheduling [phone] Cardiology - General [phone] Endocrinology [phone] Ophthalmology [phone] Physical Therapy/ Occupational Therapy [phone] Cardiology General [phone] Holter walk in [phone] walk in J-2-2 EKG walk in [phone] walk in J-1-4 Echo same day [phone] Cardiac tilt [phone] The nursing staff and medical assistants are a major part of YOUR TREATMENT TEAM and will be handling your phone calls, MyChart messages and inquiries, if any. Unless explicitly told otherwise at the time of your office visit, your study results and ensuing treatment plans will be discussed during your follow-up appointment. If you do not have a follow-up appointment and wish to discuss any issues directly with me, please feel free to obtain one. In regards to blood work, testing, and radiology reports these are released automatically to the patients. We do not comment on most testing on [facility] in a message or commentary unless there is a concern. You will not receive a message from me of the result unless there is a specific concern of the result I need you to address further in care with us or your primary medical team. Make sure to check your my chart email or dee. As an international referral center for syncope, autonomic dysfunction, general neurology, headache care, neuromuscular disease, and other related conditions, seeing patients from across the world, we do not have the resource of time or staffing to address inquiries for accommodations. As such, we do not provide or complete requests for work accommodations, FMLA, disability, or other such forms. We recommend seeking guidance through your primary care provider for these requests. We are happy to provide our office notes from your visits and other tests or evaluations performed through our clinic, which can be made available upon request to assist you with this process. documented in this encounter [facility] 12-14-2022 History of Present illness Narrative Images from the original note were not included. Neurology Outpatient Clinic Date: December 14, 2022 Patient Name: Sukhjinder Nieves Referring physician: Antonio Rene Jr [address] [facility] [address] Consult requested for POTS by Dr. Rene. Recommendations will be communicated via shared medical record or US mail. Primary physician: Get Osman [address] [place] [address] Reason for Evaluation: POTS Subjective HPI Sukhjinder Nieves is a 32 year old right-handed female who presents for evaluation of POTS. Dr. Rene is the referring physician. Dr. Get Osman MD is the PCP. Chart review: Telephone encounter 12/06/22 Phone call placed to patient reported last seen Dr. Rene in 2019, Dx POTS 2017, recent concerns dizziness, cold extremities, rin fog. Tilt in 2017 with evidence of POTS. Patient presents to establish neurology, previously following with Dr. Rene for POTS. Extensive work-up revealed POTS, but with no signs of neuropathy, autoimmune disease or other abnormality. Patient does note that she is currently being worked up for EDS and has appointment scheduled in the next few months. Notes that she was diagnosed with POTS in 2017, at that time she was extremely symptomatic with positional lightheadedness, blood pooling and skin changes to the legs. However, she notes that over the years as she has improved exercise, weight loss that she has significantly improved. Notes that today she is primarily just reestablishing, has no new concerns or symptoms. Does note positional lightheadedness, but this is primarily with going from a squatting position to a standing position, occasionally from sitting to standing. Notes that she has never had any episodes of syncope, only presyncope. Also endorses occasional room spinning dizziness as well with this sitting to standing. Also notes that over the years her nausea has resolved as well. Drinks about 3 to 4 glasses of water a day, eat salty foods but does take an extra salt. Notes that she tried salt tablets in the past but this gave her GI irritation. Notes that she is currently going to physical therapy twice a week for possible EDS and also goes to the gym regularly. Tried compression in the past, but this was not effective for her. Autonomic check list: YES (Y) or NO (N) Dry mouth-y Dry eyes-y Change in sweat- has hyperhydrosis Constipation- n Abdominal Bloating with shortly after eating- n Fluctuation of diarrhea and constipation- n Urination- n Change in taste- no Challenge swallowing foods- n Skin changes of blue or redness to distal limbs- when it first started Fainting /near syncope/syncope- yes Dizziness- sometimes Light headiness- sometimes Chest pain- no Challenge in breathing- short of breath sometimes Tachycardia- yes Temperature Regulation- hot flashes and cold flashes Bright lights- somewhat sensitive Dry Vagina- no Medications: Current Outpatient Medications Medication Sig Dispense Refill pantoprazole DR (PROTONIX) 20 mg tablet Take 1 tablet by mouth once daily. 90 tablet 3 citalopram hydrobromide (CELEXA) 10 mg tablet Take 1 tablet by mouth once daily. 90 tablet 3 metFORMIN (GLUCOPHAGE) 500 mg tablet Take 2 tablet in the am and 1 tablet in the pm x 2 weeks, then increase to 2 tablets twice a day. 120 tablet 5 topiramate (TOPAMAX) 100 mg tablet Take 1 tablet by mouth twice daily. As directed for migraines and pain 60 tablet 3 meloxicam (MOBIC) 15 mg tablet Take 1 tablet by mouth once daily as needed for pain. With food. 30 tablet 2 cholecalciferol (VITAMIN D-3) 5,000 unit tab Take 5,000 Units by mouth once daily. CLARAVIS 40 mg capsule Take 40 mg by mouth once daily. ZOLMitriptan (ZOMIG) 2.5 mg tablet Take 1 tablet by mouth as needed. May repeat after 2 hours if 1 pill not adequate 6 tablet 11 omega-3 fatty acids/fish oil (FISH OIL-OMEGA-3 FATTY ACIDS) 300-1,000 mg cap Take 2 g by mouth. adalimumab (HUMIRA) 40 mg/0.8 mL injection Inject 0.8 mL subcutaneously every 2 weeks. (Patient taking differently: Inject 40 mg subcutaneously every 4 weeks.) 6 Each 0 COMPOUNDED PRESCRIPTION Allergy injections once monthly. (at home per Dr. Valente Paulino) 0 cycloSPORINE (RESTASIS) 0.05 % ophthalmic emulsion Use 1 Drop in both eyes twice daily. 90 Each 3 ondansetron (ZOFRAN) 4 mg tablet Take 1 tablet by mouth every 8 hours as needed for nausea/vomiting. 30 tablet 1 lidocaine (LIDODERM) 5 % Apply 1 Patch as directed every 24 hours. No current facility-administered medications for this visit. ROS ROS: Her ROS was positive for that mentioned in the HPI. Otherwise a 10-point ROS was completed and was negative. ALLERGIES Allergen Reactions Cymbalta [Duloxetin* Other: See Comments Menstrual cramping / spotting Environmental [Othe* Wellbutrin [Bupropi* Other: See Comments Menstrual cramping / spotting Past Medical History: PAST MEDICAL HISTORY Diagnosis Date Anxiety Class 3 obesity due to excess calories without serious comorbidity with body mass index (BMI) of 40.0 to 44.9 in adult 01/05/2017 Depression Fibromyalgia GERD (gastroesophageal reflux disease) 12/18/2013 Headache(784.0) HTN (hypertension) Hyperlipidemia Narcolepsy Obesity KATHLEEN (obstructive sleep apnea) AHI 10. 12/09/2015 Oakley-Schlatter's disease PBA (pseudobulbar affect) Rheumatoid arthritis (HCC) Nonspecific polyarthropathy with neg RF but Dr. Valdez treating as RA, negative RA factor Seasonal allergies Family History: FAMILY HISTORY Problem Relation Age of Onset Asthma Mother other (chron's) Mother Prostate Cancer Maternal Grandfather Diabetes Maternal Grandfather Stroke Maternal Grandfather Also includes: . Social History: Social History Tobacco Use Smoking status: Never Smokeless tobacco: Never Substance Use Topics Alcohol use: Yes Alcohol/week: 2.5 standard drinks of alcohol Types: 1 Mixed Drinks per week Comment: 0 to 10 drinks per month Drug use: No unemployed Objective 12/14/22 1438 BP: 110/73 Pulse: 85 Resp: 16 SpO2: 100% Weight: 96.1 kg (211 lb 12.8 oz) Physical Examination General Appearance: Well appearing, alert, in no acute distress, well-hydrated, well nourished. Head: Normocephalic Pulm: Breathing comfortably Neck: Supple Psych: Cooperative, appropriate affect Neurological Examination: Mental Status: Alert and Oriented to Place, Person, Time and Situation and Patient follows commands.. Language: Is intact to Comprehension, Fluency and Repetition Cranial Nerves: CNII: Visual acuity normal, visual schofield full to confrontation CNIII, IV, : Pupils equal, round and reactive to light, full extraoccular movements, without nystagmus CN V: Facial sensation intact bilaterally to fine touch CN VII: Facial muscles symmetric and strong CN VIII: Hears finger rub well bilaterally CN IX: Gag Reflex not examined CN X: Palate elevates symmetrically CN XI: Full strength shoulder shrug bilaterally CN XII: Tongue protrusion full and midline Motor Exam: Tone - Normal Tone noted in all extremities Bulk - Normal bulk noted in all muscles tested. Inspection - Normal, no fasciculations or tremors noted. Power: MUSCLES Upper Extremity RIGHT LEFT Deltoid 5/5 5/5 Biceps 5/5 5/5 Triceps 5/5 5/5 Wrist Extension 5/5 5/5 Wrist Flexion 5/5 5/5 Finger Flexion 5/5 5/5 Finger Extension 5/5 5/5 Finger Abd 5/5 5/5 Finger Add 5/5 5/5 MUSCLES Lower Extremity RIGHT LEFT Hip Flexion 5/5 5/5 Hip Extension 5/5 5/5 BiFem (Knee Flex) 5/5 5/5 Quads (Knee Ext) 5/5 5/5 Gastroc (Plantflx) 5/5 5/5 TibAnt (Dorsiflx) 5/5 5/5 FlxHLong (Toe Flex) 5/5 5/5 ExtHLong (Toe Ext) 5/5 5/5 Sensory Examination Sensation is intact to Proprioception, pin-prick [pain], proprioception and vibratory sense. Reflexes Right Left Bicep / 2/4 Tricep /07 03/ BrRad / 2/4 Knee /07 03/ Ankle /05/07 Coordination: finger-to- nose-finger intact bilaterally and [id number] intact bilaterally. Gait: Patient's gait is normal, can heel and toe walk and can tandem walk Romberg: Negative DATA REVIEWED Actual films/image/tracing reviewed and summarized as follows: TILT table, MRI brain (2012), QSART, skin biopsy Old records reviewed and summarized as follows: neuromuscular Assessment/Plan Assessment & Plan: Sukhjinder Nieves is a 32 year old right-handed female with a history of myalgia, HTN, HLD, POTS, KATHLEEN, GERD, anxiety, depression, dry eyes. Her examination demonstrates no neurologic abnormalities. Patient presents to reestablish with neurology for POTS management. Notes that she was previously followed with Dr. Rene. Notes that she is currently not on any medications for her POTS, but was diagnosed in 2017. Notes significant improvement over the years with increasing exercise, weight loss and conservative measurements. Has never been on any medications, did try salt tablets but notes significant GI distress with this. Significant work-up was obtained and was negative for autoimmune process, small fiber neuropathy, or other cause of her symptoms. Patient does note that she is currently being evaluated for EDS and has an appointment scheduled in the next few months. No new concerns or complaints today, notes that she is just here to establish. No signs of sensory abnormalities on my exam today. Discussed conservative measures, patient only drinking about 3 to 4 glasses of water a day. Discussed increasing this as well as increasing salt intake. Discussed compression both of the legs as well as abdomen that may be beneficial for her. Also notes continued exercise. Additionally, did offer her shared medical appointments with Dr. Callahan, patient would like to try this, consult was placed. Patient doing well, will follow-up in 6 months or sooner should any symptoms change or worsen. Patient agreeable to treatment plan of care at this time, all questions were answered. Sukhjinder was seen today for new patient evaluation. Diagnoses and all orders for this visit: POTS (postural orthostatic tachycardia syndrome) - CONSULT TO [facility]; Future She should return to see me in 6 months. I spent a total of 55 minutes on the date of the service which included preparing to see the patient, [id number] patient care, completing clinical documentation, obtaining and/or reviewing separately obtained history, performing a medically appropriate examination, counseling and educating the patient/family/caregiver, and ordering medications, tests, or procedures. Penelope Jones PA-C [facility] Neurology This document has been created with the use of voice recognition technology. It may contain inaccuracies: (e.g. misspellings, inaccurate syntax or word sense) that have escaped review. documented in this encounter [facility] 12-14-2022 History of Present illness Narrative Sukhjinder Nieves is progressing well through their POC addressing hypermobility with new order addressed today for low back/B hip pain. The pt demonstrates and verbalizes improvements in B UE, core, and LE musculature strength. However, patient demonstrates weakness of core, LE, UE, and B hip/low back pain. Patient has attended 7 PT sessions including initial evaluation with ther ex and HEP interventions. She is partially meeting or met all current PT goals.The pt will benefit from continued skilled PT services 2x/week for 4 weeks to address the above stated impairments and functional limitations to maximize participation and ease in household and social related activities. Plan to focus on ther ex for B UE and LE stability, LE, UE, and core strengthening as well as lumbar mobility exercises for ease with ADL/iADL completion. Review of core and hip strengthening exercises as well as hamstring stretch with good tolerance. HEP handout provided with patient verbalizing understanding. No change in pain post treatment. Pt verbalized understanding and agreement to goals and POC. Thank you for this referral and please call [phone] with any questions or concerns. [facility] Work Phone: 12-14-2022 History of Present illness Narrative Images from the original note were not included. RHEUMATOLOGY EST PATIENT VISIT Patients name: Sukhjinder Nieves : 1990 Today's date: 12/14/2022 Reason for visit: f/u patient,initally referred by Dr. Osman for treatment of RA . Disease summary: Seronegative RA diagnosed in [address] Valdez Status: controlled. Serology: +ve -ve PHAM, TAQUERIA, CCP, RF, HLA B27 Biopsy: 2018: The epidermal nerve fiber densities are normal at all sites. There is no evidence of a small fiber sensory neuropathy. Radiology:djd Current Meds: Humira 40 mg Q 14 days Pain control: nil Prior Meds: HCQ-> stopped due to GI side effects HPC: This is a 32 y.o. female with a pmhx of hyperparathyoid(s/p parathyroidectomy) epilepsy, Oakley-Schlatter disease, anxiety, depression, headaches, seasonal allergies, HTN, obesity, type allergy, GERD, PBA, KATHLEEN, POTS syndrome with negative testing,FM who is here to follow up. Currently she does not complain of any significant joint pain, redness or swelling. She feels of the Humira and methotrexate are working very well for her. She does not have any GI side effects as result of the Humira. She finds it very difficult to exercise on account of pots syndrome. POTS symptoms with negative work up: TST disclosed an essentially normal resolved with no definite evidence of an underlying autonomic/small fiber neuropathy or with problems of thermoregulation in general. QSART, 05/04/16 QSART responses at the left forearm, proximal leg, distal leg , and foot are normal. There is no evidence of a significant postganglionic sympathetic sudomotor abnormality like that seen in autonomic/small fiber neuropathy ANS reflexes, 05/04/16 This is a normal cardiovascular autonomic test panel. There is no evidence of a significant cardiovagal or cardiovascular adrenergic abnormality. EPS tilt, 05/03/16 abnormal tilt with frequent unifocal and uniformed short coupled PVCs at baseline,with bigeminy, trigeminy, quad etc.resolving during tilt, but recurring in recovery. Patient tolerated 45 minutes of tilt without syncope, loss of consciousness, orthostatic hypotension, vasovagal response, or provocation of her clinical dizziness. There was a tendency towards increased chronotropic response/orthostatic tachycardia with marked sinus arrhythmia. There were no EKG changes. QT normal results were discussed with Dr. Rene. Suggest cardiovascular evaluation echo and Holter. discussed with patient who previously been on neudexta but now admits she's probably not taken it in a month. Prior Rheumatology appointments: 02/04/2020 - w/u for RA was negative August 2022 Interim: The patient, Sukhjinder, recently received a diagnosis of hypermobility and was informed about early degeneration and degenerative disc disorder (DJD) by Dr. Montiel in [place]. She is considering the possibility of having Nadya-Danlos Syndrome (EDS) and is interested in genetic counseling to rule out other conditions and pinpoint the specific type of EDS, as there are 13 different types. Sukhjinder reports having Postural Orthostatic Tachycardia Syndrome (POTS) and identifies as neurodiverse, suspecting that she has ADHD but has not yet received a formal diagnosis. She is currently undergoing physical therapy for her back and hypermobility. The patient is questioning her current treatment for rheumatoid arthritis (RA) and is not convinced she has the condition. She mentions that she accidentally stopped taking Humira for four weeks and did not notice any difference in her symptoms. The patient is also considering the possibility of having fibromyalgia instead of EDS and has undergone a tilt table test in the past. She has a history of endometriosis and low vitamin D levels, which she is currently supplementing. Sukhjinder demonstrates various hypermobile joints, including her hands, wrists, knees, and shoulders, but denies any history of dislocations, although she suspects subluxations may have occurred. She expresses curiosity about the association between Asha-Schlatter and EDS. I have reviewed the patient's medical history in detail and updated the computerized patient record. Past Medical History: Diagnosis Date Depression Fibromyalgia, primary GERD (gastroesophageal reflux disease) Past Surgical History: Procedure Laterality Date HYSTERECTOMY (CERVIX REMOVED) NASAL SEPTUM SURGERY PARATHYROID WISDOM TOOTH EXTRACTION Social History Tobacco Use Smoking status: Never Smokeless tobacco: Never Vaping Use Vaping Use: Never used Substance Use Topics Alcohol use: Yes Comment: occassionaly Drug use: Never Family History Problem Relation Age of Onset Broken bones Mother Diabetes Mother Arthritis Mother Allergies Allergen Reactions Bupropion Hcl Unknown Menstrual cramping / spotting Duloxetine Unknown Menstrual cramping / spotting No outpatient medications have been marked as taking for the 12/14/22 encounter (Appointment) with Darleen Carlton MD. Review of Systems: General Constitutional: Denied fevers, chills, anorexia, weight loss, or night sweats Eyes: denied blurry vision, dry eyes ENT: denied nasal drainage, sinus pressure, nasal ulcers Mouth: denied oral ulcers, dry mouth Lymphatics: no new adenopathy in cervical, supraclavicular, axillary, inguinal regions Respiratory: no cough, SOB CV: denied palpitations, chest pain/pressure, PND, orthopnea. GI: denied abd pain, n/v/d, constipation, melena. : denied dysuria, urgency, frequency or hematuria. Skin: no rashes or lesions Musculoskeletal: as per HPI Hematologic/lmmunologic: no adenopathy, bleeding, easy bruisiality or recurrent infection. Neurology: Denied new headaches, speech/balance/coordination problems. Denied new focal numbness or weakness of extremities Psych: denied anxiety, depression or mood swings A 10 point review of systems was completed. Physical Exam: BP 102/69 Pulse 94 Wt 95.3 kg (210 lb) BMI 30.13 kg/m Gen: NAD, resting comfortably,Alert, cooperative, no distress, appears stated age HEENT: NCAT, no temporal wasting, EOMI, perrl, anicteric sclerae, mmm, no op lesions Neck: supple, no thyromegaly or LAD, no bruits Lymphatics: no cervical, axillary, or inguinal adenopathy Chest: Good a/e b/l, no added sounds, no respiratory distress CV: RRR, no m/r/g, normal S1, S2 Abd: soft, nontender, nondistended, +BS, no hepatosplenomegaly Ext: no clubbing, cyanosis or edema MSK: No synovitis of the MCPs or PIPs. Crepitus of the knees no effusion or warmth. Skin: no rashes or lesions Neuro: no focal deficits, moves all four extremities Psych: Mood and affect appropriate DATA: I have reviewed lab work and imaging. Labs:reviewed. Imaging: reviewed. Health Maintenance Due Topic Date Due Wellness Visit Never done HIV Screening Never done Sequential Influenza Vaccine (1) 12/02/2022 Assessment & Plan H/o Inflammatory arthritis - asymptomatic -Her x-rays, labs, physical exam do not show any evidence of an inflammatory arthritis. - This was diagnosed by Dr. Iglesias - As per history and exam her symptoms were more in keeping with fibromyalgia / pain syn - We stopped methotrexate last year, I am in favour of stopping humira however patient will undergo EDS eval and discuss with [facility]. Hypermobile, patient concerned for EDS - Refer to [facility] - discussed stopping humira, I support stopping this drug. - patient will discuss with [facility] and make a decsion after EDS eval Low vit D - advised OTC vit D The patient indicates understanding of these issues and agrees with the plan. Return to clinic if she continues on humira, if this is discontinued can f/u if problems. Telehealth appointments ok Darleen Carlton MD Videotape Editor Manager Training And Development Note: To expedite correspondence this note was generated by [employer] voice recognition software. Some grammatical or spelling errors may occur using the system. documented in this encounter [facility] 12-06-2022 Miscellaneous Notes Phone call placed to patient reported last seen Dr. Rene in 2019, Dx POTS 2017, recent concerns dizziness, cold extremities, rin fog. Jayla Mars LPN documented in this encounter [facility] 12-02-2022 Note HNO ID: [id number] Author: Kimber Dale LPN Service: ? Author Type: ? Type: Progress Notes Filed: 12/02/2022 4:03 PM Note Text: Patient presents for Hepatitis B vaccine. Denies any problems at this time. Tolerated injection well. Kimber Dale LPN [facility] 12-02-2022 History of Present illness Narrative Patient presents for Hepatitis B vaccine. Denies any problems at this time. Tolerated injection well. Kimber Dale LPN documented in this encounter [facility] 11-16-2022 Note HNO ID: [id number] Author: Valentin Hendrickson MD Service: ? Author Type: Physician Type: Progress Notes Filed: 11/16/2022 2:53 PM Note Text: Assessment and Plan 1. 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 Now just irritation/ dry feeling -tried artificial tears and ointment, hot compresses, and omega-3 with no help -has mild obstructive sleep apnea -patient with migraines - recently started on topamax -restasis and plugs (-0.3 mm [place] Soft Plugs today Both Eyes, lower lids) helped greatly! 3. S/P placement of implantable collamer lens (ICL) both eyes -happy with outcome Plan: -restasis twice a day both eyes -Silicone plug size 0.7 placed lower puncta both eyes 11/16/21 -follow-up 12 months with dilated fundus exam both eyes / sooner as needed I have confirmed and edited as necessary the relevant ophthalmic history, ROS, and the neuro exam findings as obtained by others. I have seen and examined Sukhjinder Hassan Lizbeth. I have discussed the case and the management of this patient's care with the Resident/Fellow, if applicable. I also have reviewed and agree with the assessment and plan as stated above and agree with all of its relevant components. Valentin Hendrickson MD [facility] 11-07-2022 Miscellaneous Notes Patient phones requesting refills as follows: Requested Prescriptions Pending Prescriptions Disp Refills pantoprazole DR (PROTONIX) 20 mg tablet 90 tablet 3 Sig: Take 1 tablet by mouth once daily. citalopram hydrobromide (CELEXA) 10 mg tablet 90 tablet 3 Sig: Take 1 tablet by mouth once daily. ANTHONY-09/28/22 Labs-08/17/22 NOV-01/10/23 Please review and advise. Trinity Schaefer LPN documented in this encounter [facility] 11-02-2022 Note HNO ID: [id number] Author: Duarte Perez, DO Service: ? Author Type: Physician Type: Progress Notes Filed: 11/02/2022 3:11 PM Note Text: DISTANCE HEALTH VISIT This Team Access Model visit is a virtual encounter. It required patient-provider interaction for the medical decision making as documented below. BMI Obesity Medicine Consult 11/02/22 Consultation requested for an opinion regarding Obesity. My final recommendations will be communicated back to the requesting physician by way of shared Medical record or letter to requesting physician via US mail. Patient Summary: Sukhjinder Nieves is a 32 year old female with obesity who presents to the [facility] [place] for an initial evaluation of her obesity and is interested in non-surgical weight loss approaches. Primary reason for wanting obesity treatment : improve overall health Overall goal: 170 lbs Weight History: She reports a family history of obesity and adult onset weight gain. Her weight in HS was 180 lbs. She states her weight gain is related to the following factors, including getting during college (gained about 20 lbs), after an illness, ie narcolepsy, RA, fibro, and POTS. Weight Graph: (please see graph scanned in chart) Obesigenic Medications: NO Diet: Quality of diet: 24hr recall suggests mostly healthy diet. Has regular meals, tends to eat prepackaged foods, includes fruits and vegetables. B/L at 11 am-cereal or yogart and a fruit D-balanced meal 3 diet sodas per week Characterization of diet:Structured. Business Relationship Manager of impaired eating habits:some cravings Eating Disorder no Diet History: Past weight loss attempts? self-directed and exercise program. Has lost about 60 lbs in the last 3 years as a result of increasing overall activity which has helped both cravings and POTS. Exercise: Regular exercise: walking daily up to a couple of miles Strength/resistance exercise:Yes Barriers to regular exercise? None Work-related activity:currently on disability. ?Sleep: Duration: 7 hours. KATHLEEN YES (mild when weight was 271 lbs ; CPAP NO Quality:adequate, Generally restful:Sleep-wake cycle disruption:No ??Stress: Some, Cause:Personal Obesity Related Comorbidities: Prior Weight Loss Surgery:No ACTIVE PROBLEM LIST Asha-Schlatter's Disease Anxiety Depression Headache Seasonal Allergies Elevated Blood Pressure Hyperlipidemia Pba (Pseudobulbar Affect) Myalgia and Myositis Gerd (Gastroesophageal Reflux Disease) Low Vitamin D Level Hypercalcemia KATHLEEN (obstructive sleep apnea) AHI 10. Allergic Conjunctivitis of Both Eyes Postural Orthostatic Tachycardia Syndrome Vitreous Floaters of Both Eyes Dry Eyes, Bilateral Obesity (Bmi 35.0-39.9 Without Comorbidity) Rheumatoid Arthritis of Multiple Sites With Negative Rheumatoid Factor (Hcc) Obesity, Class I, Bmi 30-34.9 No history of PR, COPD, asthma, peptic ulcer dx, hyperlipidemia, gallstones, hypothyroidism, hypertension, cancer, DVT, PE, CVA, T2DM, gout, kidney stones, CKD and smoking history. PAST SURGICAL HISTORY Procedure Laterality Date EXTRACTION, ERUPTED TOOTH OR EXPOSED ROOT (ELEVATION AND/OR FORCEPS REMOVAL) 2012 HYSTERECTOMY Vaginal hysterectomy; secondary pain and scarring; laparoscpic PAST SURGICAL HISTORY OF 2010 deviated septum VISIAN ICL Bilateral 03/2022 Dr. Turner Obesity ROS/ FHx GEN: Fatigue:YES CV: h/o palpitations/cardiac arrhythmia, CP:No PULM: Asthma:No GI: GERD:YES; Gallstones: No; Fatty liver disease:No; H/o hernia:No MSK: Joint Pain:controlled on the current dose of humira : Nephrolithiasis:No; Stress incontinence:No Symptoms of PCOS(women):No No history of thyroid disorder,diabetes,cold intolerance,heat,intolerance,poly dypsia NEURO: Migraines/THOMPSON:YES; H/o seizures: No Glaucoma:No; Cataracts No Symptoms of pseudotumor cerebri:No The physical systems reviewed reveal no pathological symptoms that are pertinent to this visit Family History Problem Relation Age of Onset Asthma Mother other (chron's) Mother Prostate Cancer Maternal Grandfather Diabetes Maternal Grandfather Stroke Maternal Grandfather PREV: PAP s/p hysterectomy Mammogram n/a and Colonoscopy n/a Social History Social History Tobacco Use Smoking status: Never Smokeless tobacco: Never Substance Use Topics Alcohol use: Yes Alcohol/week: 2.5 standard drinks of alcohol Types: 1 Mixed Drinks per week Comment: 0 to 10 drinks per month Drug use: No Occupation: disability [employer] 06/15/2015 Self-reported weight is 211 pounds Results: reviewed with the patient Appointment on 08/17/2022 Component Date Value Ref Range Status ALT 08/17/2022 14 7 - 38 U/L Final AST 08/17/2022 28 13 - 35 U/L Final Cholesterol, Total 08/17/2022 226 (H) <200 mg/dL Final Triglyceride 08/17/2022 65 <150 mg/dL Final Fasting Time 08/17/2022 10 hrs Final Impression: Sukhjinder (more content not included)... [facility] 11-02-2022 Instructions Duarte Perez, - 11/02/2022 2:53 PM EDT Images from the original note were not included. Mindful eating 1. Mindful eaters don't eat until they are full Full is an overused and misleading term. Mindful eaters tend to eat until they are no longer hungry or feel satisfied. There is a big difference. By the time you perceive yourself to be full, it is often too late, you've overeaten. If you've dieted for years, your hunger and fullness signals may be crossed. Don't worry! Mindful eating can help rewire your brain to know what genuine physical hunger feels like and to spot emotional eating. 2. Mindful eaters pace themselves This is not easy. We live in a world that stresses instant access and hurrying-eating is no exception. Mindful eaters tell themselves to slow down or try to check in with their pace. Intentionally shifting into a reasonable pace is often easier said than done. 3. Mindful eaters are Choosy While mindful eaters may seem like picky eaters, they are often just very discerning about the choices. Mindful eaters really taste food and if they don't like it, they don't eat it, just like picky eaters. Also, they aren't afraid to tailor food to their particular taste. At restaurants, a mindful eater may ask the waiter/waitress tourist class to make a few tweaks to their order like holding the jasso or asking for [place] cheese rather than Cheddar. 4. Mindful eaters are forgiving and flexible Yes, mindful eaters overeat on occasion! What they don't do is obsess and beat themselves up as much as dieters. Mindful eaters know that tomorrow is another day and can let it go. Often the strategy is to adjust the amount you eat at the next meal or snack. They don't give up! 5. Mindful eaters tend to gauge their hunger first before taking a bite Being in the moment and fully present is barrera to mindful eating. Take a brief moment to ask yourself before taking a bite, Am I really, really hungry? What I am feeling right now is... This can help prevent you from walking into emotional eating. 6. Mindful eaters break out of old habits When you know what habits keep you stuck like multitasking when you eat or nibbling while anxious, you can devote more energy and attention to these particular areas. Sometimes it is changing how you eat more than what you eat. http://[employer]/learn/ mindful-eating/ documented in this encounter [facility] 11-02-2022 History of Present illness Narrative DISTANCE HEALTH VISIT This Team Access Model visit is a virtual encounter. It required patient-provider interaction for the medical decision making as documented below. BMI Obesity Medicine Consult 11/02/22 Consultation requested for an opinion regarding Obesity. My final recommendations will be communicated back to the requesting physician by way of shared Medical record or letter to requesting physician via US mail. Patient Summary: Sukhjinder Nieves is a 32 year old female with obesity who presents to the [facility] [place] for an initial evaluation of her obesity and is interested in non-surgical weight loss approaches. Primary reason for wanting obesity treatment : improve overall health Overall goal: 170 lbs Weight History: She reports a family history of obesity and adult onset weight gain. Her weight in HS was 180 lbs. She states her weight gain is related to the following factors, including getting during college (gained about 20 lbs), after an illness, ie narcolepsy, RA, fibro, and POTS. Weight Graph: (please see graph scanned in chart) Obesigenic Medications: NO Diet: Quality of diet: 24hr recall suggests mostly healthy diet. Has regular meals, tends to eat prepackaged foods, includes fruits and vegetables. B/L at 11 am-cereal or yogart and a fruit D-balanced meal 3 diet sodas per week Characterization of diet:Structured. Business Relationship Manager of impaired eating habits:some cravings Eating Disorder no Diet History: Past weight loss attempts? self-directed and exercise program. Has lost about 60 lbs in the last 3 years as a result of increasing overall activity which has helped both cravings and POTS. Exercise: Regular exercise: walking daily up to a couple of miles Strength/resistance exercise:Yes Barriers to regular exercise? None Work-related activity:currently on disability. ?Sleep: Duration: 7 hours. KATHLEEN YES (mild when weight was 271 lbs ; CPAP NO Quality:adequate, Generally restful:Sleep-wake cycle disruption:No ??Stress: Some, Cause:Personal Obesity Related Comorbidities: Prior Weight Loss Surgery:No ACTIVE PROBLEM LIST Asha-Schlatter's Disease Anxiety Depression Headache Seasonal Allergies Elevated Blood Pressure Hyperlipidemia Pba (Pseudobulbar Affect) Myalgia and Myositis Gerd (Gastroesophageal Reflux Disease) Low Vitamin D Level Hypercalcemia KATHLEEN (obstructive sleep apnea) AHI 10. Allergic Conjunctivitis of Both Eyes Postural Orthostatic Tachycardia Syndrome Vitreous Floaters of Both Eyes Dry Eyes, Bilateral Obesity (Bmi 35.0-39.9 Without Comorbidity) Rheumatoid Arthritis of Multiple Sites With Negative Rheumatoid Factor (Hcc) Obesity, Class I, Bmi 30-34.9 No history of PR, COPD, asthma, peptic ulcer dx, hyperlipidemia, gallstones, hypothyroidism, hypertension, cancer, DVT, PE, CVA, T2DM, gout, kidney stones, CKD and smoking history. PAST SURGICAL HISTORY Procedure Laterality Date EXTRACTION, ERUPTED TOOTH OR EXPOSED ROOT (ELEVATION AND/OR FORCEPS REMOVAL) 2012 HYSTERECTOMY Vaginal hysterectomy; secondary pain and scarring; laparoscpic PAST SURGICAL HISTORY OF 2010 deviated septum VISIAN ICL Bilateral 03/2022 Dr. Turner Obesity ROS/ FHx GEN: Fatigue:YES CV: h/o palpitations/cardiac arrhythmia, CP:No PULM: Asthma:No GI: GERD:YES; Gallstones: No; Fatty liver disease:No; H/o hernia:No MSK: Joint Pain:controlled on the current dose of humira : Nephrolithiasis:No; Stress incontinence:No Symptoms of PCOS(women):No No history of thyroid disorder,diabetes,cold intolerance,heat,intolerance,poly dypsia NEURO: Migraines/THOMPSON:YES; H/o seizures: No Glaucoma:No; Cataracts No Symptoms of pseudotumor cerebri:No The physical systems reviewed reveal no pathological symptoms that are pertinent to this visit Family History Problem Relation Age of Onset Asthma Mother other (chron's) Mother Prostate Cancer Maternal Grandfather Diabetes Maternal Grandfather Stroke Maternal Grandfather PREV: PAP s/p hysterectomy Mammogram n/a and Colonoscopy n/a Social History Social History Tobacco Use Smoking status: Never Smokeless tobacco: Never Substance Use Topics Alcohol use: Yes Alcohol/week: 2.5 standard drinks of alcohol Types: 1 Mixed Drinks per week Comment: 0 to 10 drinks per month Drug use: No Occupation: disability [employer] L[employer] 06/15/2015 Self-reported weight is 211 pounds Results: reviewed with the patient Appointment on 08/17/2022 Component Date Value Ref Range Status ALT 08/17/2022 14 7 - 38 U/L Final AST 08/17/2022 28 13 - 35 U/L Final Cholesterol, Total 08/17/2022 226 (H) <200 mg/dL Final Triglyceride 08/17/2022 65 <150 mg/dL Final Fasting Time 08/17/2022 10 hrs Final Impression: Sukhjinder Nieves is a 32 year old female with Class I obesity (There is no height or weight on file to calculate BMI.) who has adult onset obesity with gradual weight loss of 60 lbs in the last 2-3 years and has now reached a plateau in the weight loss.. The causes of her obesity are multifactorial, biological, psychological and social and environmental. Specific factors include a genetic component related to a strong family of obesity and inadequate sleep duration. She has few weight-related medical comorbidities which increase her cardiovascular mortality risk. There are additional metabolic obesity complications including dyslipidemia, obstructive sleep apnea, and vitamin D deficiency. Other medical conditions as above. Regarding her lifestyle, as above, she has a few behavioral contributors ; her physical activity is regular. Overall, it is clear that her quality of life is mildly compromised by her weight. It is likely a combination of weight loss therapies will be needed. She appears motivated today. Plan: -- Based on the severity and resistance of the obesity to more conservative weight loss approaches, I believe a combination of behavioral and pharmacological intervention is the best and most appropriate vermin exterminator therapeutic option. -- We discussed several strategies to track food intake and increase mindfulness around eating. She was counseled on Time restricted feeding and Low carbohydrate diet -- Encouraged the patient to improve her physical activity. Although cardiovascular exercise is most beneficial for weight loss initially, we discussed healthy muscle from a combination of resistance training and cardiovascular exercise is the best vermin exterminator plan. An overall goal of 200 minutes per week of exercise has been effective in weight loss and maintenance. -Through mutual decision making the patient will try to follow a time restricted eating program (11/16). Suggested incorporate the adult portion plate specifically the [place] healthy eating guidelines to ensure the healthiest choices from macronutrients.. -Discussed the 6 mindful eating tips that she should follow daily. -I will delay starting any medications that could interact with stimulants. She has an appointment with sleep medicine (December 28, 2022) regarding underlying narcolepsy. She has been on several stimulants in the past that have not been effective. I will only consider beginning phentermine if she has not started on a stimulant as a recommendation of the sleep specialist. -Continue the topiramate 100 mg twice a day which is being used for migraine prophylaxis. -Discussed potentially starting the extended release form of naltrexone/bupropion but this option is cost prohibitive. -Plan to increase the metformin by 500 mg every 2 weeks until on 1000 mg twice a day. -Follow-up visit in 2 to 3 months for management of above interventions I spent a total of 45 minutes on the date of the service which included completing clinical documentation, obtaining and/or reviewing separately obtained history, counseling and educating the patient/family/caregiver, and ordering medications, tests, or procedures. I have communicated my name and active licensure. The patient's identity and physical location were verified at the time of this visit. Either the patient or their legal surgical device sales representative has been informed of the risks and benefits of -- and alternatives to -- treatment through a remote evaluation and consents to proceed with the evaluation remotely. Duarte Perez DO documented in this encounter [facility] 09-28-2022 Note HNO ID: [id number] Author: Tawnya Wise APRN.MUSIC TYPOGRAPHER Service: ? Author Type: Nurse Practitioner Type: Progress Notes Filed: 09/28/2022 4:27 PM Note Text: SUBJECTIVE Sukhjinder Nieves is a 32 year old female here today for a check up on her medical problems. Chief Complaint Patient presents with: Follow Up HPI Sukhjinder Nieves is a 32 year old female established patient of Get Osman MD who presents today for follow up. Last seen 08/17/2022. Discussed concerns of wanting to work on weight loss. Current weight loss medications include Topamax 50 mg twice daily. Was not able to get semaglutide due to cost. Continues to work on diet, exercise, lifestyle as a whole. Up coming appointment with weight loss provider. Interested in other affordable options, insurance does not cover weight loss specific medications. She also has concerns of noticing some joint hypermobility. Wants to go to PT. Her medications were reviewed today and her list is now up to date. Medications Current Outpatient Medications Medication Sig topiramate (TOPAMAX) 100 mg tablet Take 1 tablet by mouth twice daily. As directed for migraines and pain metFORMIN (GLUCOPHAGE) 500 mg tablet Take 1 tablet by mouth twice daily with meals. Start by taking once daily for the first week then increase to twice daily meloxicam (MOBIC) 15 mg tablet Take 1 tablet by mouth once daily as needed for pain. With food. cholecalciferol (VITAMIN D-3) 5,000 unit tab Take 5,000 Units by mouth once daily. CLARAVIS 40 mg capsule Take 40 mg by mouth once daily. cycloSPORINE (RESTASIS) 0.05 % ophthalmic emulsion Use 1 Drop in both eyes twice daily. pantoprazole DR (PROTONIX) 20 mg tablet Take 1 tablet by mouth once daily. citalopram hydrobromide (CELEXA) 10 mg tablet Take 1 tablet by mouth once daily. ZOLMitriptan (ZOMIG) 2.5 mg tablet Take 1 tablet by mouth as needed. May repeat after 2 hours if 1 pill not adequate omega-3 fatty acids/fish oil (FISH OIL-OMEGA-3 FATTY ACIDS) 300-1,000 mg cap Take 2 g by mouth. ondansetron (ZOFRAN) 4 mg tablet Take 1 tablet by mouth every 8 hours as needed for nausea/vomiting. adalimumab (HUMIRA) 40 mg/0.8 mL injection Inject 0.8 mL subcutaneously every 2 weeks. (Patient taking differently: Inject 40 mg subcutaneously every 4 weeks.) COMPOUNDED PRESCRIPTION Allergy injections once monthly. (at home per Dr. Valente Paulino) lidocaine (LIDODERM) 5 % Apply 1 Patch as directed every 24 hours. No current facility-administered medications for this visit. ALLERGIES Allergen Reactions Cymbalta [Duloxetin* Other: See Comments Menstrual cramping / spotting Environmental [Othe* Wellbutrin [Bupropi* Other: See Comments Menstrual cramping / spotting ACTIVE PROBLEM LIST Obesity, Class I, Bmi 30-34.9 - 08/17/2022 Rheumatoid Arthritis of Multiple Sites With Negative Rheumatoid Factor (Hcc) - 10/25/2019 Obesity (Bmi 35.0-39.9 Without Comorbidity) - 06/16/2016 Vitreous Floaters of Both Eyes - 06/09/2016 Dry Eyes, Bilateral - 06/09/2016 Postural Orthostatic Tachycardia Syndrome - 05/03/2016 Allergic Conjunctivitis of Both Eyes - 03/17/2016 KATHLEEN (obstructive sleep apnea) AHI 10. - 12/09/2015 Hypercalcemia - 12/04/2015 Low Vitamin D Level - 09/28/2015 Gerd (Gastroesophageal Reflux Disease) - 12/18/2013 Myalgia and Myositis - 03/02/2013 Pba (Pseudobulbar Affect) - 02/21/2013 Hyperlipidemia Asha-Schlatter's Disease Anxiety Depression Headache Seasonal Allergies Elevated Blood Pressure Social History Tobacco Use Smoking status: Never Smokeless tobacco: Never Substance Use Topics Alcohol use: Yes Alcohol/week: 2.5 standard drinks Types: 1 Mixed Drinks per week Comment: 0 to 10 drinks per month Drug use: No Review of Systems Respiratory: Negative. Cardiovascular: Negative. Musculoskeletal: Noticing hypermobility OBJECTIVE BP 120/70 Pulse 70 Wt 213 lb 1.6 oz (96.7kg) LMP 06/15/2015 Physical Exam Vitals and nursing note reviewed. Constitutional: General: She is awake. She is not in acute distress. Appearance: Normal appearance. She is well-developed and well-groomed. She is not ill-appearing, toxic-appearing or diaphoretic. HENT: Head: Normocephalic. Right Ear: External ear normal. Left Ear: External ear normal. Nose: Nose normal. Eyes: General: Vision grossly intact. Conjunctiva/sclera: Conjunctivae normal. Pupils: Pupils are equal, round, and reactive to light. Neck: Vascular: No JVD. Trachea: Trachea normal. Pulmonary: Effort: Pulmonary effort is normal. No accessory muscle usage, prolonged expiration or respiratory distress. Musculoskeletal: Cervical back: Neck supple. Skin: General: Skin is warm and dry. Capillary Refill: Capillary refill takes less than 2 seconds. Neurological: General: No focal deficit present. Mental Status: She is alert and oriented to person, place, and time. Mental status i (more content not included)... [facility] 09-28-2022 History of Present illness Narrative SUBJECTIVE Sukhjinder Nieves is a 32 year old female here today for a check up on her medical problems. Chief Complaint Patient presents with: Follow Up HPI Sukhjinder Nieves is a 32 year old female established patient of Get Osman MD who presents today for follow up. Last seen 08/17/2022. Discussed concerns of wanting to work on weight loss. Current weight loss medications include Topamax 50 mg twice daily. Was not able to get semaglutide due to cost. Continues to work on diet, exercise, lifestyle as a whole. Up coming appointment with weight loss provider. Interested in other affordable options, insurance does not cover weight loss specific medications. She also has concerns of noticing some joint hypermobility. Wants to go to PT. Her medications were reviewed today and her list is now up to date. Medications Current Outpatient Medications Medication Sig topiramate (TOPAMAX) 100 mg tablet Take 1 tablet by mouth twice daily. As directed for migraines and pain metFORMIN (GLUCOPHAGE) 500 mg tablet Take 1 tablet by mouth twice daily with meals. Start by taking once daily for the first week then increase to twice daily meloxicam (MOBIC) 15 mg tablet Take 1 tablet by mouth once daily as needed for pain. With food. cholecalciferol (VITAMIN D-3) 5,000 unit tab Take 5,000 Units by mouth once daily. CLARAVIS 40 mg capsule Take 40 mg by mouth once daily. cycloSPORINE (RESTASIS) 0.05 % ophthalmic emulsion Use 1 Drop in both eyes twice daily. pantoprazole DR (PROTONIX) 20 mg tablet Take 1 tablet by mouth once daily. citalopram hydrobromide (CELEXA) 10 mg tablet Take 1 tablet by mouth once daily. ZOLMitriptan (ZOMIG) 2.5 mg tablet Take 1 tablet by mouth as needed. May repeat after 2 hours if 1 pill not adequate omega-3 fatty acids/fish oil (FISH OIL-OMEGA-3 FATTY ACIDS) 300-1,000 mg cap Take 2 g by mouth. ondansetron (ZOFRAN) 4 mg tablet Take 1 tablet by mouth every 8 hours as needed for nausea/vomiting. adalimumab (HUMIRA) 40 mg/0.8 mL injection Inject 0.8 mL subcutaneously every 2 weeks. (Patient taking differently: Inject 40 mg subcutaneously every 4 weeks.) COMPOUNDED PRESCRIPTION Allergy injections once monthly. (at home per Dr. Valente Paulino) lidocaine (LIDODERM) 5 % Apply 1 Patch as directed every 24 hours. No current facility-administered medications for this visit. ALLERGIES Allergen Reactions Cymbalta [Duloxetin* Other: See Comments Menstrual cramping / spotting Environmental [Othe* Wellbutrin [Bupropi* Other: See Comments Menstrual cramping / spotting ACTIVE PROBLEM LIST Obesity, Class I, Bmi 30-34.9 - 08/17/2022 Rheumatoid Arthritis of Multiple Sites With Negative Rheumatoid Factor (Hcc) - 10/25/2019 Obesity (Bmi 35.0-39.9 Without Comorbidity) - 06/16/2016 Vitreous Floaters of Both Eyes - 06/09/2016 Dry Eyes, Bilateral - 06/09/2016 Postural Orthostatic Tachycardia Syndrome - 05/03/2016 Allergic Conjunctivitis of Both Eyes - 03/17/2016 KATHLEEN (obstructive sleep apnea) AHI 10. - 12/09/2015 Hypercalcemia - 12/04/2015 Low Vitamin D Level - 09/28/2015 Gerd (Gastroesophageal Reflux Disease) - 12/18/2013 Myalgia and Myositis - 03/02/2013 Pba (Pseudobulbar Affect) - 02/21/2013 Hyperlipidemia Oakley-Schlatter's Disease Anxiety Depression Headache Seasonal Allergies Elevated Blood Pressure Social History Tobacco Use Smoking status: Never Smokeless tobacco: Never Substance Use Topics Alcohol use: Yes Alcohol/week: 2.5 standard drinks Types: 1 Mixed Drinks per week Comment: 0 to 10 drinks per month Drug use: No Review of Systems Respiratory: Negative. Cardiovascular: Negative. Musculoskeletal: Noticing hypermobility OBJECTIVE BP 120/70 Pulse 70 Wt 213 lb 1.6 oz (96.7kg) LMP 06/15/2015 Physical Exam Vitals and nursing note reviewed. Constitutional: General: She is awake. She is not in acute distress. Appearance: Normal appearance. She is well-developed and well-groomed. She is not ill-appearing, toxic-appearing or diaphoretic. HENT: Head: Normocephalic. Right Ear: External ear normal. Left Ear: External ear normal. Nose: Nose normal. Eyes: General: Vision grossly intact. Conjunctiva/sclera: Conjunctivae normal. Pupils: Pupils are equal, round, and reactive to light. Neck: Vascular: No JVD. Trachea: Trachea normal. Pulmonary: Effort: Pulmonary effort is normal. No accessory muscle usage, prolonged expiration or respiratory distress. Musculoskeletal: Cervical back: Neck supple. Skin: General: Skin is warm and dry. Capillary Refill: Capillary refill takes less than 2 seconds. Neurological: General: No focal deficit present. Mental Status: She is alert and oriented to person, place, and time. Mental status is at baseline. Psychiatric: Attention and Perception: Attention and perception normal. Mood and Affect: Mood and affect normal. Speech: Speech normal. Behavior: Behavior normal. Behavior is cooperative. Thought Content: Thought content normal. Cognition and Memory: Cognition and memory normal. Judgment: Judgment normal. ASSESSMENT/PLAN: 1. Obesity, Class I, BMI 30-34.9 - ICD9: 278.00, ICD10: E66.9 (primary diagnosis) Weight decreasing - Behavioral intervention, - Pharmacological intervention, - Increase Topiramate, and - Add Metformin - TOPIRAMATE 100 MG TABLET - METFORMIN 500 MG TABLET 2. Migraine without aura and without status migrainosus, not intractable - ICD9: 346.10, ICD10: G43.009 Increase Topamax. - TOPIRAMATE 100 MG TABLET 3. Other chronic pain - ICD9: 338.29, ICD10: G89.29 Increase Topamax. - TOPIRAMATE 100 MG TABLET - MELOXICAM 15 MG TABLET 4. Generalized articular hypermobility - ICD9: 718.89, ICD10: M24.80 - CONSULT TO PHYSICAL THERAPY Portions of this note have been entered by ancillary staff. I have reviewed and when necessary edited, so that they are an adequate record of my encounter with this patient Please note that parts of this document were created using voice recognition software and therefore may contain grammatical errors. Patient verbalizes understanding of instructions from today's visit and in agreement with treatment plan. Questions answered. Agrees to call the office if questions, concerns of issues with acute symptoms not improving or if they worsen. See diagnoses and orders for additional plan(s). Allergies and medications were reviewed, list was updated, and refills given if needed. Past medical, surgical, social, and family history reviewed and updated as appropriate. Encouraged proper diet & exercise as well as compliance with taking medications. Age-appropriate health preventative measures were discussed. Return if symptoms worsen or fail to improve, for Follow up on chronic conditions and medications.. OLIVIA Moore documented in this encounter [facility] 08-17-2022 Note HNO ID: [id number] Author: Tawnya Wise APRN.CNP Service: ? Author Type: Nurse Practitioner Type: Progress Notes Filed: 08/17/2022 4:09 PM Note Text: SUBJECTIVE Sukhjinder Nieves is a 32 year old female here today for a check up on her medical problems. Chief Complaint Patient presents with: Weight Problem HPI Sukhjinder Nieves is a 32 year old female established patient of Get Osman MD who presents today for weight management. Last 2-3 years has been working on weight loss. Working on walking, making food changes. Lost around 60 pounds. Has always been overweight. Had always been active but had to be careful with chronic conditions and weight went up. Issues with food cravings. Eats around 2 meals a day. Mom cooks for her. A1c was 5%. Wellbutrin caused side effects, spotting. On Topamax currently. Wants to try semaglutide. Concerns of stretch moore all over. Her medications were reviewed today and her list is now up to date. Medications Current Outpatient Medications Medication Sig cholecalciferol (VITAMIN D-3) 5,000 unit tab Take 5,000 Units by mouth once daily. semaglutide, weight loss, (WEGOVY) 0.25 mg/0.5 mL pen injector Inject 0.5 mL subcutaneously one time a week for 28 days. CLARAVIS 40 mg capsule Take 40 mg by mouth once daily. cycloSPORINE (RESTASIS) 0.05 % ophthalmic emulsion Use 1 Drop in both eyes twice daily. topiramate (TOPAMAX) 50 mg tablet Take 1 tablet by mouth twice daily. As directed for migraines and pain pantoprazole DR (PROTONIX) 20 mg tablet Take 1 tablet by mouth once daily. citalopram hydrobromide (CELEXA) 10 mg tablet Take 1 tablet by mouth once daily. ZOLMitriptan (ZOMIG) 2.5 mg tablet Take 1 tablet by mouth as needed. May repeat after 2 hours if 1 pill not adequate omega-3 fatty acids/fish oil (FISH OIL-OMEGA-3 FATTY ACIDS) 300-1,000 mg cap Take 2 g by mouth. meloxicam (MOBIC) 15 mg tablet Take 1 tablet by mouth once daily as needed for pain. With food. ondansetron (ZOFRAN) 4 mg tablet Take 1 tablet by mouth every 8 hours as needed for nausea/vomiting. adalimumab (HUMIRA) 40 mg/0.8 mL injection Inject 0.8 mL subcutaneously every 2 weeks. (Patient taking differently: Inject 40 mg subcutaneously every 4 weeks.) COMPOUNDED PRESCRIPTION Allergy injections once monthly. (at home per Dr. Valente Paulino) lidocaine (LIDODERM) 5 % Apply 1 Patch as directed every 24 hours. No current facility-administered medications for this visit. ALLERGIES Allergen Reactions Cymbalta [Duloxetin* Other: See Comments Menstrual cramping / spotting Environmental [Othe* Wellbutrin [Bupropi* Other: See Comments Menstrual cramping / spotting ACTIVE PROBLEM LIST Obesity, Class I, Bmi 30-34.9 - 08/17/2022 Rheumatoid Arthritis of Multiple Sites With Negative Rheumatoid Factor (Hcc) - 10/25/2019 Obesity (Bmi 35.0-39.9 Without Comorbidity) - 06/16/2016 Vitreous Floaters of Both Eyes - 06/09/2016 Dry Eyes, Bilateral - 06/09/2016 Postural Orthostatic Tachycardia Syndrome - 05/03/2016 Allergic Conjunctivitis of Both Eyes - 03/17/2016 KATHLEEN (obstructive sleep apnea) AHI 10. - 12/09/2015 Hypercalcemia - 12/04/2015 Low Vitamin D Level - 09/28/2015 Gerd (Gastroesophageal Reflux Disease) - 12/18/2013 Myalgia and Myositis - 03/02/2013 Pba (Pseudobulbar Affect) - 02/21/2013 Hyperlipidemia Asha-Schlatter's Disease Anxiety Depression Headache Seasonal Allergies Elevated Blood Pressure Social History Tobacco Use Smoking status: Never Smokeless tobacco: Never Substance Use Topics Alcohol use: Yes Alcohol/week: 2.5 standard drinks Types: 1 Mixed Drinks per week Comment: 0 to 10 drinks per month Drug use: No Review of Systems Constitutional: Positive for unexpected weight change. OBJECTIVE BP 100/80 Pulse 85 Ht 5' 9.25 (1.76m) Wt 217 lb (98.4kg) SpO2 99% LMP 06/15/2015 BMI 31.81 kg/(m2). Physical Exam Vitals and nursing note reviewed. Constitutional: General: She is awake. She is not in acute distress. Appearance: Normal appearance. She is well-developed and well-groomed. She is obese. She is not ill-appearing, toxic-appearing or diaphoretic. HENT: Head: Normocephalic. Right Ear: External ear normal. Left Ear: External ear normal. Nose: Nose normal. Eyes: General: Vision grossly intact. Conjunctiva/sclera: Conjunctivae normal. Pupils: Pupils are equal, round, and reactive to light. Neck: Vascular: No JVD. Trachea: Trachea normal. Cardiovascular: Rate and Rhythm: Normal rate and regular rhythm. Pulses: Normal pulses. Heart sounds: Normal heart sounds. No murmur heard. Pulmonary: Effort: Pulmonary effort is normal. No accessory muscle usage, prolonged expiration or respiratory distress. Breath sounds: Normal breath sounds. Musculoskeletal: Cervical back: Neck supple. Skin: General: Skin is warm and dry. Capillary Refill: Capillary refill takes less than 2 second (more content not included)... [facility] 08-12-2022 Note HNO ID: [id number] Author: Get Osman MD Service: ? Author Type: Physician Type: Progress Notes Filed: 09/12/2022 2:30 AM Note Text: VIRTUAL VISIT PROGRESS NOTE This is a virtual visit using Alma Johns video visit. It required patient-provider interaction for the medical decision making as documented below. I have communicated my name and active licensure. The patient's identity and physical location were verified at the time of this visit. Either the patient or their legal surgical device sales representative has been informed of the risks and benefits of -- and alternatives to -- treatment through a remote evaluation and consents to proceed with the evaluation remotely. Sukhjinder Nieves is a 32 year old female seen for Weight Loss . Wondered about Wegovy. Has been working on diet and exercise and just slow and steayd progress. Joined a gym. Cardio and weights. Has resumed Vitamin D No depression concerns such as SI. Last seen June 2022. Wonders about stretch moore and wonders about CTD work up. HISTORY REVIEWED (electronic chart updated): PAST MEDICAL HISTORY Diagnosis Date Anxiety Class 3 obesity due to excess calories without serious comorbidity with body mass index (BMI) of 40.0 to 44.9 in adult 01/05/2017 Depression Fibromyalgia GERD (gastroesophageal reflux disease) 12/18/2013 Headache(784.0) HTN (hypertension) Hyperlipidemia Narcolepsy Obesity KATHLEEN (obstructive sleep apnea) AHI 10. 12/09/2015 Asha-Schlatter's disease PBA (pseudobulbar affect) Rheumatoid arthritis (HCC) Nonspecific polyarthropathy with neg RF but Dr. Valdez treating as RA, negative RA factor Seasonal allergies PAST SURGICAL HISTORY Procedure Laterality Date EXTRACTION, ERUPTED TOOTH OR EXPOSED ROOT (ELEVATION AND/OR FORCEPS REMOVAL) 2012 HYSTERECTOMY Vaginal hysterectomy; secondary pain and scarring; laparoscpic PAST SURGICAL HISTORY OF 2010 deviated septum VISIAN ICL Bilateral 03/2022 Dr. Turner FAMILY HISTORY Problem Relation Age of Onset Asthma Mother other (chron's) Mother Prostate Cancer Maternal Grandfather Diabetes Maternal Grandfather Stroke Maternal Grandfather Social History Tobacco Use Smoking status: Never Smokeless tobacco: Never Substance Use Topics Alcohol use: Yes Alcohol/week: 2.5 standard drinks Types: 1 Mixed Drinks per week Comment: 0 to 10 drinks per month Drug use: No Current Outpatient Medications Medication Sig CLARAVIS 40 mg capsule Take 40 mg by mouth once daily. cycloSPORINE (RESTASIS) 0.05 % ophthalmic emulsion Use 1 Drop in both eyes twice daily. topiramate (TOPAMAX) 50 mg tablet Take 1 tablet by mouth twice daily. As directed for migraines and pain pantoprazole DR (PROTONIX) 20 mg tablet Take 1 tablet by mouth once daily. citalopram hydrobromide (CELEXA) 10 mg tablet Take 1 tablet by mouth once daily. ZOLMitriptan (ZOMIG) 2.5 mg tablet Take 1 tablet by mouth as needed. May repeat after 2 hours if 1 pill not adequate omega-3 fatty acids/fish oil (FISH OIL-OMEGA-3 FATTY ACIDS) 300-1,000 mg cap Take 2 g by mouth. meloxicam (MOBIC) 15 mg tablet Take 1 tablet by mouth once daily as needed for pain. With food. ondansetron (ZOFRAN) 4 mg tablet Take 1 tablet by mouth every 8 hours as needed for nausea/vomiting. adalimumab (HUMIRA) 40 mg/0.8 mL injection Inject 0.8 mL subcutaneously every 2 weeks. (Patient taking differently: Inject 40 mg subcutaneously every 4 weeks.) COMPOUNDED PRESCRIPTION Allergy injections once monthly. (at home per Dr. Valente Paulino) lidocaine (LIDODERM) 5 % Apply 1 Patch as directed every 24 hours. No current facility-administered medications for this visit. ALLERGIES Allergen Reactions Cymbalta [Duloxetin* Other: See Comments Menstrual cramping / spotting Environmental [Othe* Wellbutrin [Bupropi* Other: See Comments Menstrual cramping / spotting REVIEW OF SYSTEMS: As noted in HPI PHYSICAL EXAMINATION: VIDEO EXAM: (if completed, performed via video enabled technology) GENERAL: alert and appropriate, in no distress, well-hydrated, well nourished, and happy, smiling, interactive HEAD: normocephalic, no abnormality or lesion noted EYES: no injection and visual acuity is grossly normal RESPIRATORY: breathing non-labored Encounter Diagnosis ICD-10-CM 1. Class 1 obesity due to excess calories without serious comorbidity with body mass index (BMI) of 31.0 to 31.9 in adult E66.09 semaglutide, weight loss, (WEGOVY) 0.25 mg/0.5 mL pen injector Z68.31 2. Stretch moore L90.6 Above issues addressed with patient. Patient involved in shared decision making for management of medical issues. History and medications reviewed. Epic updated as needed Refills and/or prescriptions taken care of and meds adjusted as indicated after reviewed history, exam and labs. Health Maintenance reviewed. Updated record and/or ordered tests as recorded. Encouraged on efforts at healthy di (more content not included)... [facility] 08-08-2022 History of Present illness Narrative Pt.'s Humira required a PA, the online form was completed and submitted through covermymeds documented in this encounter [facility] 08-03-2022 History of Present illness Narrative Images from the original note were not included. RHEUMATOLOGY EST PATIENT VISIT Patients name: Sukhjinder Nieves : 1990 Today's date: 08/03/2022 Reason for visit: f/u patient,initally referred by Dr. Osman for treatment of RA . Disease summary: Seronegative RA diagnosed in [address] Valdez Status: controlled. Serology: +ve -ve PHAM, TAQUERIA, CCP, RF, HLA B27 Biopsy: 2018: The epidermal nerve fiber densities are normal at all sites. There is no evidence of a small fiber sensory neuropathy. Radiology:djd Current Meds: Humira 40 mg Q 14 days Pain control: nil Prior Meds: HCQ-> stopped due to GI side effects HPC: This is a 32 y.o. female with a pmhx of hyperparathyoid(s/p parathyroidectomy) epilepsy, Asha-Schlatter disease, anxiety, depression, headaches, seasonal allergies, HTN, obesity, type allergy, GERD, PBA, KATHLEEN, POTS syndrome with negative testing,FM who is here to establish care with a manager plumbing. Currently she does not complain of any significant joint pain, redness or swelling. She feels of the Humira and methotrexate are working very well for her. She does not have any GI side effects as result of the Humira. She finds it very difficult to exercise on account of pots syndrome. POTS symptoms with negative work up: TST disclosed an essentially normal resolved with no definite evidence of an underlying autonomic/small fiber neuropathy or with problems of thermoregulation in general. QSART, 05/04/16 QSART responses at the left forearm, proximal leg, distal leg , and foot are normal. There is no evidence of a significant postganglionic sympathetic sudomotor abnormality like that seen in autonomic/small fiber neuropathy ANS reflexes, 05/04/16 This is a normal cardiovascular autonomic test panel. There is no evidence of a significant cardiovagal or cardiovascular adrenergic abnormality. EPS tilt, 05/03/16 abnormal tilt with frequent unifocal and uniformed short coupled PVCs at baseline,with bigeminy, trigeminy, quad etc.resolving during tilt, but recurring in recovery. Patient tolerated 45 minutes of tilt without syncope, loss of consciousness, orthostatic hypotension, vasovagal response, or provocation of her clinical dizziness. There was a tendency towards increased chronotropic response/orthostatic tachycardia with marked sinus arrhythmia. There were no EKG changes. QT normal results were discussed with Dr. Rene. Suggest cardiovascular evaluation echo and Holter. discussed with patient who previously been on neudexta but now admits she's probably not taken it in a month. Prior Rheumatology appointments: 02/04/2020 - w/u for RA was negative Interim: Everything going ok Body -> feels ok stable Working out -> weights Lost 40 lbs since last here. Eyes -> dry -> thinks accutane makes it worse I have reviewed the patient's medical history in detail and updated the computerized patient record. Past Medical History: Diagnosis Date Depression Fibromyalgia, primary GERD (gastroesophageal reflux disease) Past Surgical History: Procedure Laterality Date HYSTERECTOMY (CERVIX REMOVED) NASAL SEPTUM SURGERY PARATHYROID WISDOM TOOTH EXTRACTION Social History Tobacco Use Smoking status: Never Smokeless tobacco: Never Vaping Use Vaping status: Never Used Substance Use Topics Alcohol use: Yes Comment: occassionaly Drug use: Never Family History Problem Relation Age of Onset Broken bones Mother Diabetes Mother Arthritis Mother Allergies Allergen Reactions Bupropion Hcl Unknown Menstrual cramping / spotting Duloxetine Unknown Menstrual cramping / spotting No outpatient medications have been marked as taking for the 08/03/22 encounter (Appointment) with Darleen Carlton MD. Review of Systems: General Constitutional: Denied fevers, chills, anorexia, weight loss, or night sweats Eyes: denied blurry vision, dry eyes ENT: denied nasal drainage, sinus pressure, nasal ulcers Mouth: denied oral ulcers, dry mouth Lymphatics: no new adenopathy in cervical, supraclavicular, axillary, inguinal regions Respiratory: no cough, SOB CV: denied palpitations, chest pain/pressure, PND, orthopnea. GI: denied abd pain, n/v/d, constipation, melena. : denied dysuria, urgency, frequency or hematuria. Skin: no rashes or lesions Musculoskeletal: as per HPI Hematologic/lmmunologic: no adenopathy, bleeding, easy bruisiality or recurrent infection. Neurology: Denied new headaches, speech/balance/coordination problems. Denied new focal numbness or weakness of extremities Psych: denied anxiety, depression or mood swings A 10 point review of systems was completed. Physical Exam: BP 101/68 Pulse 82 Wt 96.6 kg (213 lb) BMI 30.56 kg/m Gen: NAD, resting comfortably,Alert, cooperative, no distress, appears stated age HEENT: NCAT, no temporal wasting, EOMI, perrl, anicteric sclerae, mmm, no op lesions Neck: supple, no thyromegaly or LAD, no bruits Lymphatics: no cervical, axillary, or inguinal adenopathy Chest: Good a/e b/l, no added sounds, no respiratory distress CV: RRR, no m/r/g, normal S1, S2 Abd: soft, nontender, nondistended, +BS, no hepatosplenomegaly Ext: no clubbing, cyanosis or edema MSK: No synovitis of the MCPs or PIPs. Crepitus of the knees no effusion or warmth. Skin: no rashes or lesions Neuro: no focal deficits, moves all four extremities Psych: Mood and affect appropriate DATA: I have reviewed lab work and imaging. Labs:reviewed. Imaging: reviewed. Health Maintenance Due Topic Date Due Wellness Visit Never done HIV Screening Never done Assessment & Plan H/o Inflammatory arthritis - controlled -Her x-rays, labs, physical exam do not show any evidence of an inflammatory arthritis. - This was diagnosed by Dr. Iglesias - As per history and exam her symptoms were more in keeping with fibromyalgia. - We stopped methotrexate last year -We will continue her on Humira and see her back on a yearly basis as patient doesn't want to stop humira. - CBCD, BMP, LFT, bio labs Dry eyes - neg TAQUERIA - had eye surgery - unlikely to be 2/2 sjogrens Long-term Humira user-no side effects All biologics suppress the immune system and increase the risk of infections. -People who take biologics are huffman likely to get infections such as upper respiratory infections, pneumonia, urinary tract infections, and skin infections. -Increased risk of opportunistic infections. -Risk of injection site reaction. -Counseled to hold biological if active infection or fever. -Advised to obtain vaccinations (PCV13 first then PPSV23 8 weeks later, yearly flu, hpv, shingrix,COVID) -Patient that have been treated with high-dose steroids, alkylating agents, antimetabolites or biologicals that are immunosuppressive or immunomodulator should receive a 3rd dose of the [employer] or moderna mRNA Covid vaccine. Obesity - lost a lot of weight - congratulated Encounter for viral screening - biological labs Low vit D - vit D HCM - A1C The patient indicates understanding of these issues and agrees with the plan. Return to clinic in 1 year Telehealth appointments ok Darleen Carlton MD Videotape Editor Manager Training And Development Note: To expedite correspondence this note was generated by [employer] voice recognition software. Some grammatical or spelling errors may occur using the system. documented in this encounter [facility] 06-29-2022 Note HNO ID: [id number] Author: Kimber Dale LPN Service: ? Author Type: ? Type: Progress Notes Filed: 06/29/2022 4:03 PM Note Text: Patient presents for Hepatitis B vaccine. Denies any problems at this time. Tolerated injection well. Kimber Dale LPN [facility] 06-29-2022 History of Present illness Narrative Patient presents for Hepatitis B vaccine. Denies any problems at this time. Tolerated injection well. Kimber Dale LPN documented in this encounter [facility] 06-27-2022 Note HNO ID: [id number] Author: Benedict Trevino, PhD Service: ? Author Type: Psychologist Type: Progress Notes Filed: 06/27/2022 5:01 PM Note Text: [facility] Progress Note Sukhjinder Hassan spring06/27/2022 [id number] PROVIDER: Benedict Trevino, PhD Time: 50 minutes Setting: Patient seen in person Parties Present: Patient Treatment Modality/Interventions: Cognitive Behavioral Reassurance/Supportive Insight oriented Problem solving Processing of emotions Psychoeducation MENTAL STATUS: Mood: variable, dysphoric Affect: mood-congruent Thoughts/Associations:goal directed Suicidal/Homicidal Ideation: None expressed or evidenced Other Prominent Symptoms: Therapy Focus/Content of Session: Self-care, Mood/affect regulation, Self-esteem, and Coping with chronic illness Sleep: working on the next trial.... LEARNED HELPLESSNESS has been slipping in MOOD: pt struggling with self esteem and self worth feels like the last to be picked etc. PLAN: she has a long time friend and a girlfriend she could contact in [place] GOAL live on her own vs w mom OBSTICLES: HER CATS need to basically and needs $ help etc PLAN: get listed on [employer] and slowly build towards a more independent life while continuing to work on sleep currently on SSI Fears of [place] because of being Lesbian MEDICATIONS: Per medical record: Current Outpatient Medications Medication Sig CLARAVIS 40 mg capsule Take 40 mg by mouth once daily. cycloSPORINE (RESTASIS) 0.05 % ophthalmic emulsion Use 1 Drop in both eyes twice daily. topiramate (TOPAMAX) 50 mg tablet Take 1 tablet by mouth twice daily. As directed for migraines and pain pantoprazole DR (PROTONIX) 20 mg tablet Take 1 tablet by mouth once daily. citalopram hydrobromide (CELEXA) 10 mg tablet Take 1 tablet by mouth once daily. ZOLMitriptan (ZOMIG) 2.5 mg tablet Take 1 tablet by mouth as needed. May repeat after 2 hours if 1 pill not adequate omega-3 fatty acids/fish oil (FISH OIL-OMEGA-3 FATTY ACIDS) 300-1,000 mg cap Take 2 g by mouth. meloxicam (MOBIC) 15 mg tablet Take 1 tablet by mouth once daily as needed for pain. With food. ondansetron (ZOFRAN) 4 mg tablet Take 1 tablet by mouth every 8 hours as needed for nausea/vomiting. adalimumab (HUMIRA) 40 mg/0.8 mL injection Inject 0.8 mL subcutaneously every 2 weeks. (Patient taking differently: Inject 40 mg subcutaneously every 4 weeks.) COMPOUNDED PRESCRIPTION Allergy injections once monthly. (at home per Dr. Valente Paulino) lidocaine (LIDODERM) 5 % Apply 1 Patch as directed every 24 hours. No current facility-administered medications for this visit. 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 POTS, Migraines, Fibromyalgia, Pseudo bulbar effect, circadian rhythm disorder etc. PAIN [place] II: deferred [place] III: see med record [place] IV: multiple health problems [place] V: 48-53 TREATMENT PROGRESS/ASSESSMENT: Progressing satisfactorily. TREATMENT PLAN/GOALS: Continue in therapy focusing on self-care, stress management, affect management, coping with sleep issue, and self-esteem. Next appointment: as scheduled Benedict Trevino, PhD [facility] 06-01-2022 Note HNO ID: [id number] Author: Get Osman MD Service: ? Author Type: Physician Type: Progress Notes Filed: 07/03/2022 11:55 PM Note Text: This note was created using [employer]. Subjective Sukhjinder Nieves is a 32 year old female. Patient presents with: Established Patient SUBJECTIVE: Sukhjinder Nieves is a 32 year old year old lady here today for follow up appointment for review of medical conditions. Doping well overall. Meds effective without side effects. Migraines and depression and anxiety under fair control on current meds. (Was not able to get med for pseudobulbar affect covered by imsurance) Vitamin D followed at rheumatology. Walking more. Successful with weight loss. PAST MEDICAL HISTORY Diagnosis Date Anxiety Class 3 obesity due to excess calories without serious comorbidity with body mass index (BMI) of 40.0 to 44.9 in adult 01/05/2017 Depression Fibromyalgia GERD (gastroesophageal reflux disease) 12/18/2013 Headache(784.0) HTN (hypertension) Hyperlipidemia Narcolepsy Obesity KATHLEEN (obstructive sleep apnea) AHI 10. 12/09/2015 Asha-Schlatter's disease PBA (pseudobulbar affect) Rheumatoid arthritis (HCC) Nonspecific polyarthropathy with neg RF but Dr. Valdez treating as RA, negative RA factor Seasonal allergies Current Outpatient Medications Medication Sig cycloSPORINE (RESTASIS) 0.05 % ophthalmic emulsion Use 1 Drop in both eyes twice daily. topiramate (TOPAMAX) 50 mg tablet Take 1 tablet by mouth twice daily. As directed for migraines and pain pantoprazole DR (PROTONIX) 20 mg tablet Take 1 tablet by mouth once daily. citalopram hydrobromide (CELEXA) 10 mg tablet Take 1 tablet by mouth once daily. ZOLMitriptan (ZOMIG) 2.5 mg tablet Take 1 tablet by mouth as needed. May repeat after 2 hours if 1 pill not adequate cholecalciferol (VITAMIN D3) 400 unit tab Take 400 Units by mouth. omega-3 fatty acids/fish oil (FISH OIL-OMEGA-3 FATTY ACIDS) 300-1,000 mg cap Take 2 g by mouth. meloxicam (MOBIC) 15 mg tablet Take 1 tablet by mouth once daily as needed for pain. With food. ondansetron (ZOFRAN) 4 mg tablet Take 1 tablet by mouth every 8 hours as needed for nausea/vomiting. adalimumab (HUMIRA) 40 mg/0.8 mL injection Inject 0.8 mL subcutaneously every 2 weeks. (Patient taking differently: Inject 40 mg subcutaneously every 4 weeks.) COMPOUNDED PRESCRIPTION Allergy injections once monthly. (at home per Dr. Valente Paulino) lidocaine (LIDODERM) 5 % Apply 1 Patch as directed every 24 hours. No current facility-administered medications for this visit. Review of Systems Objective BP 106/62 Pulse 71 Temp 36.4 ?C (97.6 ?F) Resp 18 Wt 98.9 kg (218 lb) LMP 06/15/2015 SpO2 99% BMI 31.28 kg/m? Last 5 Encounter Wt Readings: Date: Wt: 06/01/2022 98.9 kg (218 lb) 09/06/2021 110.7 kg (244 lb) 02/08/2021 118.9 kg (262 lb 3.2 oz) 04/12/2019 126.1 kg (278 lb) 02/06/2019 128.8 kg (284 lb) No waist measurement recorded Estimated body mass index is 31.28 kg/m? as calculated from the following: Height as of 06/20/17: 177.8 cm (5' 10 ). Weight as of this encounter: 98.9 kg (218 lb). Last 5 Encounter BP Readings: Date: BP: 06/01/2022 106/62 09/06/2021 92/60 02/08/2021 102/72 04/12/2019 110/74 02/06/2019 116/74 Physical Exam Constitutional: Appearance: Normal appearance. HENT: Head: Normocephalic. Eyes: Conjunctiva/sclera: Conjunctivae normal. Cardiovascular: Rate and Rhythm: Normal rate and regular rhythm. Heart sounds: Normal heart sounds. Pulmonary: Effort: Pulmonary effort is normal. Breath sounds: Normal breath sounds. Skin: General: Skin is warm and dry. Neurological: General: No focal deficit present. Mental Status: She is alert and oriented to person, place, and time. Psychiatric: Mood and Affect: Mood normal. Behavior: Behavior normal. Thought Content: Thought content normal. Judgment: Judgment normal. Assessment and Plan Encounter Diagnosis ICD-10-CM 1. Anxiety and depression F41.9 F32.A 2. Migraine without aura and without status migrainosus, not intractable G43.009 3. Class 1 obesity due to excess calories without serious comorbidity with body mass index (BMI) of 31.0 to 31.9 in adult E66.09 Z68.31 Doing well with weight loss with lifestyle changes. Exercise--walking 4. PBA (pseudobulbar affect) F48.2 5. Vitamin D deficiency E55.9 6. Encounter for immunization Z23 PNEUMOCOCCAL VACCINE (PREVNAR 20) Above issues addressed with patient. Patient involved in shared decision making for management of medical issues. History and medications reviewed. Epic updated as needed Refills and/or prescriptions taken care of and meds adjusted as indicated after reviewed history, exam and labs. Health Maintenance reviewed. Updated record and/or ordered tests as recorded. Encouraged on efforts at healthy diet and regular exercise and adequate sleep. Has refills (more content not included)... [facility] 06-01-2022 History of Present illness Narrative This note was created using [employer]. Subjective Sukhjinder Nieves is a 32 year old female. Patient presents with: Established Patient SUBJECTIVE: Sukhjinder Nieves is a 32 year old year old lady here today for follow up appointment for review of medical conditions. Doping well overall. Meds effective without side effects. Migraines and depression and anxiety under fair control on current meds. (Was not able to get med for pseudobulbar affect covered by imsurance) Vitamin D followed at rheumatology. Walking more. Successful with weight loss. PAST MEDICAL HISTORY Diagnosis Date Anxiety Class 3 obesity due to excess calories without serious comorbidity with body mass index (BMI) of 40.0 to 44.9 in adult 01/05/2017 Depression Fibromyalgia GERD (gastroesophageal reflux disease) 12/18/2013 Headache(784.0) HTN (hypertension) Hyperlipidemia Narcolepsy Obesity KATHLEEN (obstructive sleep apnea) AHI 10. 12/09/2015 Asha-Schlatter's disease PBA (pseudobulbar affect) Rheumatoid arthritis (HCC) Nonspecific polyarthropathy with neg RF but Dr. Valdez treating as RA, negative RA factor Seasonal allergies Current Outpatient Medications Medication Sig cycloSPORINE (RESTASIS) 0.05 % ophthalmic emulsion Use 1 Drop in both eyes twice daily. topiramate (TOPAMAX) 50 mg tablet Take 1 tablet by mouth twice daily. As directed for migraines and pain pantoprazole DR (PROTONIX) 20 mg tablet Take 1 tablet by mouth once daily. citalopram hydrobromide (CELEXA) 10 mg tablet Take 1 tablet by mouth once daily. ZOLMitriptan (ZOMIG) 2.5 mg tablet Take 1 tablet by mouth as needed. May repeat after 2 hours if 1 pill not adequate cholecalciferol (VITAMIN D3) 400 unit tab Take 400 Units by mouth. omega-3 fatty acids/fish oil (FISH OIL-OMEGA-3 FATTY ACIDS) 300-1,000 mg cap Take 2 g by mouth. meloxicam (MOBIC) 15 mg tablet Take 1 tablet by mouth once daily as needed for pain. With food. ondansetron (ZOFRAN) 4 mg tablet Take 1 tablet by mouth every 8 hours as needed for nausea/vomiting. adalimumab (HUMIRA) 40 mg/0.8 mL injection Inject 0.8 mL subcutaneously every 2 weeks. (Patient taking differently: Inject 40 mg subcutaneously every 4 weeks.) COMPOUNDED PRESCRIPTION Allergy injections once monthly. (at home per Dr. Valente Paulino) lidocaine (LIDODERM) 5 % Apply 1 Patch as directed every 24 hours. No current facility-administered medications for this visit. Review of Systems Objective BP 106/62 Pulse 71 Temp 36.4 C (97.6 F) Resp 18 Wt 98.9 kg (218 lb) LMP 06/15/2015 SpO2 99% BMI 31.28 kg/m Last 5 Encounter Wt Readings: Date: Wt: 06/01/2022 98.9 kg (218 lb) 09/06/2021 110.7 kg (244 lb) 02/08/2021 118.9 kg (262 lb 3.2 oz) 04/12/2019 126.1 kg (278 lb) 02/06/2019 128.8 kg (284 lb) No waist measurement recorded Estimated body mass index is 31.28 kg/m as calculated from the following: Height as of 06/20/17: 177.8 cm (5' 10 ). Weight as of this encounter: 98.9 kg (218 lb). Last 5 Encounter BP Readings: Date: BP: 06/01/2022 106/62 09/06/2021 92/60 02/08/2021 102/72 04/12/2019 110/74 02/06/2019 116/74 Physical Exam Constitutional: Appearance: Normal appearance. HENT: Head: Normocephalic. Eyes: Conjunctiva/sclera: Conjunctivae normal. Cardiovascular: Rate and Rhythm: Normal rate and regular rhythm. Heart sounds: Normal heart sounds. Pulmonary: Effort: Pulmonary effort is normal. Breath sounds: Normal breath sounds. Skin: General: Skin is warm and dry. Neurological: General: No focal deficit present. Mental Status: She is alert and oriented to person, place, and time. Psychiatric: Mood and Affect: Mood normal. Behavior: Behavior normal. Thought Content: Thought content normal. Judgment: Judgment normal. Assessment and Plan Encounter Diagnosis ICD-10-CM 1. Anxiety and depression F41.9 F32.A 2. Migraine without aura and without status migrainosus, not intractable G43.009 3. Class 1 obesity due to excess calories without serious comorbidity with body mass index (BMI) of 31.0 to 31.9 in adult E66.09 Z68.31 Doing well with weight loss with lifestyle changes. Exercise--walking 4. PBA (pseudobulbar affect) F48.2 5. Vitamin D deficiency E55.9 6. Encounter for immunization Z23 PNEUMOCOCCAL VACCINE (PREVNAR 20) Above issues addressed with patient. Patient involved in shared decision making for management of medical issues. History and medications reviewed. Epic updated as needed Refills and/or prescriptions taken care of and meds adjusted as indicated after reviewed history, exam and labs. Health Maintenance reviewed. Updated record and/or ordered tests as recorded. Encouraged on efforts at healthy diet and regular exercise and adequate sleep. Has refills on meds. Continue present management. Further evaluation and treatment as indicated. Get Osman MD documented in this encounter [facility] 04-28-2022 Note HNO ID: [id number] Author: Valentin Hendrickson MD Service: ? Author Type: Physician Type: Progress Notes Filed: 04/28/2022 2:36 PM Note Text: Assessment and Plan 1. 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 Now just irritation/ dry feeling -tried artificial tears and ointment, hot compresses, and omega-3 with no help -has mild obstructive sleep apnea -patient with migraines - recently started on topamax -restasis and plugs (-0.3 mm [place] Soft Plugs today Both Eyes, lower lids) helped greatly! 3. S/P placement of implantable collamer lens (ICL) both eyes -happy with outcome Plan: -restasis twice a day both eyes -Silicone plug size 0.5 placed lower puncta both eyes 10/14/21 -follow-up 6 months with dilated fundus exam both eyes / sooner as needed I have confirmed and edited as necessary the relevant ophthalmic history, ROS, and the neuro exam findings as obtained by others. I have seen and examined Sukhjinder Nieves. I have discussed the case and the management of this patient's care with the Resident/Fellow, if applicable. I also have reviewed and agree with the assessment and plan as stated above and agree with all of its relevant components. Valentin Hendrickson MD [facility] 04-28-2022 History of Present illness Narrative Assessment and Plan 1. 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 Now just irritation/ dry feeling -tried artificial tears and ointment, hot compresses, and omega-3 with no help -has mild obstructive sleep apnea -patient with migraines - recently started on topamax -restasis and plugs (-0.3 mm [place] Soft Plugs today Both Eyes, lower lids) helped greatly! 3. S/P placement of implantable collamer lens (ICL) both eyes -happy with outcome Plan: -restasis twice a day both eyes -Silicone plug size 0.5 placed lower puncta both eyes 10/14/21 -follow-up 6 months with dilated fundus exam both eyes / sooner as needed I have confirmed and edited as necessary the relevant ophthalmic history, ROS, and the neuro exam findings as obtained by others. I have seen and examined Sukhjinder Nieves. I have discussed the case and the management of this patient's care with the Resident/Fellow, if applicable. I also have reviewed and agree with the assessment and plan as stated above and agree with all of its relevant components. Valentin Hendrickson MD documented in this encounter [facility] 11-26-2021 History of Present illness Narrative Images from the original note were not included. [facility] New Patient Evaluation Telephone only due to lack of video. PATIENT NAME: Sukhjinder Nieves DATE OF SERVICE: November 26, 2021 HPI: Sukhjinder Nieves is a 31 year old female. 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 Seen in the past by Dr. Bradshaw and Dr. Harvey. Presented with EDS in 2010 age 21 in college Seen by counselor and diagnosed with depression (FH+), started on antidepressants and did not improve. Went on a medical leave and then has sleep testing in [place]. Has never had cataplexy, sleep paralysis. Two episodes of visual hallucinations - on falling asleep and convinced a snake was on her bed shortly after diagnosis; convinced a serial killer was on her ceiling, was crying. Can feel very heavy when tired. Vivid dreams, no REHANA. Used to talk in sleep but no longer. No sleep related injuries. On disability for narcolepsy, fibromyalgia, POTS, RA, pseudobulbar syndrome SLEEP-WAKE SCHEDULE No set schedule. Can be delayed but this was not in the beginning, moreso once she stopped working. Bed time: 1 AM Wake time: 10:30 PM Naps every day - at least once, 4 hours. Average total sleep time (in a 24 hour period): 12 hours. Sleep is refreshing but not long lasting. SLEEP-RELATED DETAILS Preferred sleep position: Breathing disturbances and other behaviors during sleep: snoring, automatic behaviors. CPAP 2016 after last study in 2016 - could not keep on. No RLS. No Parasomnia. WAKE-RELATED DETAILS Very sleepy. She denies drowsy driving. She does not use caffeine other than Dr. De Leon. There has been no recent weight gain. She has been working on weight loss and is down 50 lb. 5'10 and 227 lbs now. No FH narcolepsy. Past treatments: Modafinil (2010, 1 day) Armodafinil (2 wk) - both may have worsened knee pain. Methylphenidate (2010) Dexamphetamine (2010) - both caused dizziness, out of her body sensation; she built up tolerance , elevated BP. SO (2012, 1 mo): not effective Clarithromycin (2013, Dr. Cota, )2 mo: not effective. She has not been on any meds for narcolepsy since 2013. Diagnosed with pseudobulbar affect attributed to narcolepsy. Patient Questionnaires Sleep Scores Sleep Questions 11/25/2021 Reason for visit: Sleep apnea, Difficulty falling or staying asleep or poor sleep quality, Excessive daytime sleepiness, Narcolepsy Average hours slept in 24 hours: 12 Accidents or near accidents due to drowsy drivin PROMIS CAT Sleep Disturbance 11/25/2021 PROMIS Sleep Disturbance T-Score 49 (within normal limits) PHQ-9 05/16/2020 02/08/2021 11/25/2021 Score 10 12 12 PROMIS Global Health - (T-Scores - the mean of general population = 50. Five points is a clinically meaningful difference.) 05/16/2020 02/08/2021 11/25/2021 Physical T-Score 39.8 37.4 34.9 Mental T-Score 41.1 36.3 36.3 [place] Sleepiness Scale Sitting and Reading? moderate chance of dozing (2) Watching TV? moderate chance of dozing (2) Sitting inactive in a public place (e.g a theater or a meeting) moderate chance of dozing (2) As a passenger in a car for an hour without a break? moderate chance of dozing (2) Lying down to rest in the afternoon when circumstances permit? high chance of dozing (3) Sitting and talking to someone? slight chance of dozing (1) Sitting quietly after lunch without alcohol? high chance of dozing (3) In a car, while stopped for a few minutes in traffic? no chance of dozing (0) Total Score ABNORMAL (15) PRIOR SLEEP STUDIES: A Polysomnogram performed on 11/2010 revealed an TST 365 min, SE 89%, REML 343 min, AHI of 0.7l; REM index of 6.1, PLM index of 0, oxygen saturation ge 90%. A Multiple Sleep Latency Test performed on 11/2010 revealed a mean sleep latency of 4.7 minutes and 3/5 sleep onset REM periods (naps 3, 4, 5). A Polysomnogram performed on 11/2015 revealed an AHI of 10.7; supine index of 13.5; and a minimum oxygen saturation of 93%. PAST MEDICAL HISTORY Diagnosis Date Anxiety Class 3 obesity due to excess calories without serious comorbidity with body mass index (BMI) of 40.0 to 44.9 in adult 01/05/2017 Depression Fibromyalgia GERD (gastroesophageal reflux disease) 12/18/2013 Headache(784.0) HTN (hypertension) Hyperlipidemia Narcolepsy Obesity KATHLEEN (obstructive sleep apnea) AHI 10. 12/09/2015 Oakley-Schlatter's disease PBA (pseudobulbar affect) Rheumatoid arthritis (HCC) Nonspecific polyarthropathy with neg RF but Dr. Valdez treating as RA, negative RA factor Seasonal allergies PAST SURGICAL HISTORY Procedure Laterality Date EXTRACTION, ERUPTED TOOTH OR EXPOSED ROOT (ELEVATION AND/OR FORCEPS REMOVAL) 2012 HYSTERECTOMY Vaginal hysterectomy; secondary pain and scarring; laparoscpic PAST SURGICAL HISTORY OF 2010 deviated septum ACTIVE PROBLEM LIST Asha-Schlatter's Disease Anxiety Depression Headache Seasonal Allergies Elevated Blood Pressure Hyperlipidemia Pba (Pseudobulbar Affect) Myalgia and Myositis Gerd (Gastroesophageal Reflux Disease) Low Vitamin D Level Hypercalcemia KATHLEEN (obstructive sleep apnea) AHI 10. Allergic Conjunctivitis of Both Eyes Postural Orthostatic Tachycardia Syndrome Vitreous Floaters of Both Eyes Dry Eyes, Bilateral Obesity (Bmi 35.0-39.9 Without Comorbidity) Rheumatoid Arthritis of Multiple Sites With Negative Rheumatoid Factor (Hcc) Allergies As of Date: 11/26/2021 Allergen Noted Reaction CYMBALTA [DULOXETINE] 01/24/2014 Other: See Comments ENVIRONMENTAL [OTHER] 12/06/2005 WELLBUTRIN [BUPROPION HCL] 01/24/2014 Other: See Comments Fully Assessed 10/14/2021 CURRENT MEDICATIONS: topiramate (TOPAMAX) 50 mg tablet Take 1 tablet by mouth twice daily. As directed for migraines and pain pantoprazole DR (PROTONIX) 20 mg tablet Take 1 tablet by mouth once daily. citalopram hydrobromide (CELEXA) 10 mg tablet Take 1 tablet by mouth once daily. ZOLMitriptan (ZOMIG) 2.5 mg tablet Take 1 tablet by mouth as needed. May repeat after 2 hours if 1 pill not adequate cycloSPORINE (RESTASIS) 0.05 % ophthalmic emulsion Use 1 Drop in both eyes twice daily. cholecalciferol (VITAMIN D3) 400 unit tab Take 400 Units by mouth. omega-3 fatty acids/fish oil (FISH OIL-OMEGA-3 FATTY ACIDS) 300-1,000 mg cap Take 2 g by mouth. meloxicam (MOBIC) 15 mg tablet Take 1 tablet by mouth once daily as needed for pain. With food. ondansetron (ZOFRAN) 4 mg tablet Take 1 tablet by mouth every 8 hours as needed for nausea/vomiting. adalimumab (HUMIRA) 40 mg/0.8 mL injection Inject 0.8 mL subcutaneously every 2 weeks. (Patient taking differently: Inject 40 mg subcutaneously every 4 weeks.) COMPOUNDED PRESCRIPTION Allergy injections once monthly. (at home per Dr. Valente Paulino) lidocaine (LIDODERM) 5 % Apply 1 Patch as directed every 24 hours. 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 Some comorbidities not contributing to sleep presentation. Patient interested in new agents or clinical trial. Will assess eligibility and determine next steps. I spent a total of 45 minutes on the date of the service which included preparing to see the patient, completing clinical documentation, obtaining and/or reviewing separately obtained history, counseling and educating the patient/family/caregiver, and ordering medications, tests, or procedures. Naman Garza DO {TIP Please page the sleep study scheduling team to contact your patient. CLICK HERE FOR PAGING COPY AND PASTE Please contact Sukhjinder Nieves with . - Naman Garza DO THIS HELP TEXT WILL DISAPPEAR WHEN YOU SAVE YOUR NOTE :[phone]} documented in this encounter [facility] 10-14-2021 History of Present illness Narrative Assessment and Plan 1. 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 Now just irritation/ dry feeling -tried artificial tears and ointment, hot compresses, and omega-3 with no help -has mild obstructive sleep apnea -patient with migraines - recently started on topamax -restasis and plugs (-0.3 mm [place] Soft Plugs today Both Eyes, lower lids) helped greatly! Plan: -restasis twice a day both eyes -Silicone plug size 0.5 placed lower puncta both eyes 10/14/21 -follow-up 6 months with dilated fundus exam both eyes / sooner as needed I have confirmed and edited as necessary the relevant ophthalmic history, ROS, and the neuro exam findings as obtained by others. I have seen and examined Sukhjinder Nieves. I have discussed the case and the management of this patient's care with the Resident/Fellow, if applicable. I also have reviewed and agree with the assessment and plan as stated above and agree with all of its relevant components. Valentin Hendrickson MD documented in this encounter [facility] 09-20-2021 Telephone encounter Note Asking a lot of dosing questions I can't answer correctly [facility] Work Phone: 09-20-2021 Miscellaneous Notes Asking a lot of dosing questions I can't answer correctly documented in this encounter [facility] 09-06-2021 History of Present illness Narrative This note was created using NoteWriter. Subjective Sukhjinder Nieves is a 31 year old female. Patient presents with: Follow Up SUBJECTIVE: Sukhjinder Nieves is a 31 year old year old lady here today for 6 month follow up appointment for review of medical conditions. Things are stable. Topamax helping for headaches. Did not help at all for general pain. Does not make her sleepy. Sleep wake disorder noted. Circadian rhythm disorder. Works around burst of energy. Already worked with lots of sleep med doctors and not able to get on track with a regular sleep cycle. Doing well with allergy shots. Up to every 4 weeks. Trying to walking daily. About 1 mile a day. Discussed Prevnar 20. PAST MEDICAL HISTORY Diagnosis Date Anxiety Class 3 obesity due to excess calories without serious comorbidity with body mass index (BMI) of 40.0 to 44.9 in adult 01/05/2017 Depression Fibromyalgia GERD (gastroesophageal reflux disease) 12/18/2013 Headache(784.0) HTN (hypertension) Hyperlipidemia Narcolepsy Obesity KATHLEEN (obstructive sleep apnea) AHI 10. 12/09/2015 Asha-Schlatter's disease PBA (pseudobulbar affect) Rheumatoid arthritis (HCC) Nonspecific polyarthropathy with neg RF but Dr. Valdez treating as RA, negative RA factor Seasonal allergies Current Outpatient Medications Medication Sig topiramate (TOPAMAX) 50 mg tablet Take 1 tablet by mouth daily at bedtime. As directed for migraines and pain cycloSPORINE (RESTASIS) 0.05 % ophthalmic emulsion Use 1 Drop in both eyes twice daily. cholecalciferol (VITAMIN D3) 400 unit tab Take 400 Units by mouth. omega-3 fatty acids/fish oil (FISH OIL-OMEGA-3 FATTY ACIDS) 300-1,000 mg cap Take 2 g by mouth. ondansetron (ZOFRAN) 4 mg tablet Take 1 tablet by mouth every 8 hours as needed for nausea/vomiting. ZOLMitriptan (ZOMIG) 2.5 mg tablet Take 1 tablet by mouth as needed. May repeat after 2 hours if 1 pill not adequate citalopram hydrobromide (CELEXA) 10 mg tablet Take 1 tablet by mouth once daily. pantoprazole DR (PROTONIX) 20 mg tablet Take 1 tablet by mouth once daily. adalimumab (HUMIRA) 40 mg/0.8 mL injection Inject 0.8 mL subcutaneously every 2 weeks. (Patient taking differently: Inject 40 mg subcutaneously every 4 weeks. ) COMPOUNDED PRESCRIPTION Allergy injections once monthly. (at home per Dr. Valente Paulino) lidocaine (LIDODERM) 5 % Apply 1 Patch as directed every 24 hours. meloxicam (MOBIC) 15 mg tablet Take 1 tablet by mouth once daily as needed for pain. With food. No current facility-administered medications for this visit. Review of Systems Objective BP 92/60 Pulse 60 Wt 110.7 kg (244 lb) LMP 06/15/2015 SpO2 98% BMI 35.01 kg/m Physical Exam Constitutional: Appearance: Normal appearance. HENT: Head: Normocephalic. Eyes: Conjunctiva/sclera: Conjunctivae normal. Cardiovascular: Rate and Rhythm: Normal rate and regular rhythm. Heart sounds: Normal heart sounds. Pulmonary: Effort: Pulmonary effort is normal. Breath sounds: Normal breath sounds. Skin: General: Skin is warm and dry. Neurological: General: No focal deficit present. Mental Status: She is alert and oriented to person, place, and time. Psychiatric: Mood and Affect: Mood normal. Behavior: Behavior normal. Thought Content: Thought content normal. Judgment: Judgment normal. Component Latest Ref Rng & Units 05/30/2020 09/01/2021 Protein, Total 6.3 - 8.0 g/dL 7.0 Albumin 3.9 - 4.9 g/dL 4.2 Calcium 8.5 - 10.2 mg/dL 9.2 9.4 Bilirubin, Total 0.2 - 1.3 mg/dL 0.5 Alkaline Phosphatase 34 - 123 U/L 72 AST 13 - 35 U/L 14 ALT 7 - 38 U/L 11 Glucose 74 - 99 mg/dL 77 81 BUN 7 - 21 mg/dL 11 14 Creatinine 0.58 - 0.96 mg/dL 0.71 0.85 Sodium 136 - 144 mmol/L 137 137 Potassium 3.7 - 5.1 mmol/L 4.2 3.9 Chloride 97 - 105 mmol/L 105 108 (H) CO2 22 - 30 mmol/L 23 20 (L) Anion Gap 9 - 18 mmol/L 9 9 eGFR >=60 mL/min/1.73m 93 eGFR- >60 eGFR-All Other Races . >60 WBC 3.70 - 11.00 k/uL 7.56 RBC 3.90 - 5.20 m/uL 4.29 Hemoglobin 11.5 - 15.5 g/dL 13.0 Hematocrit 36.0 - 46.0 % 39.7 MCV 80.0 - 100.0 fL 92.5 MCH 26.0 - 34.0 pg 30.3 MCHC 30.5 - 36.0 g/dL 32.7 RDW-CV 11.5 - 15.0 % 13.7 Platelet Count 150 - 400 k/uL 263 MPV 9.0 - 12.7 fL 11.9 Absolute nRBC <0.01 k/uL <0.01 Cholesterol, Total <200 mg/dL 185 164 Triglyceride <150 mg/dL 55 66 HDL Cholesterol >39 mg/dL 45 40 LDL Cholesterol <100 mg/dL 129 (H) 111 (H) Non HDL Cholesterol <130 mg/dL 140 (H) 124 Fasting Time hrs 7 10 VLDL Cholesterol <30 mg/dL 11 13 TC:HDL Ratio <5.10 4.11 4.10 LDL:HDL Ratio <2.54 2.87 (H) 2.78 (H) PTH, Intact 15 - 65 pg/mL 36 Magnesium 1.7 - 2.3 mg/dL 1.9 2.1 Vitamin D 25 Hydroxy 31.0 - 80.0 ng/mL 35.8 Assessment and Plan ASSESSMENT/PLAN: 1. Postural orthostatic tachycardia syndrome - ICD9: 427.89, ICD10: I49.8 (primary diagnosis) Continue present management. 2. Migraine without aura and without status migrainosus, not intractable - ICD9: 346.10, ICD10: G43.009 Continue present management. - TOPIRAMATE 50 MG TABLET - ZOLMITRIPTAN 2.5 MG TABLET 3. Other chronic pain - ICD9: 338.29, ICD10: G89.29 Continue present management. - TOPIRAMATE 50 MG TABLET 4. Gastroesophageal reflux disease without esophagitis - ICD9: 530.81, ICD10: K21.9 Controlled. Continue present management. - PANTOPRAZOLE 20 MG TABLET,DELAYED RELEASE 5. Anxiety and depression - ICD9: 300.00, 311, ICD10: F41.9, F32.A Continue present management. Stable overall. - CITALOPRAM 10 MG TABLET 6. Narcolepsy due to underlying condition without cataplexy - ICD9: 347.10, ICD10: G47.429 Doing the best that she can without med that had been effective;l insurance still does not have coverage for the meds that had helped; Will try again down to road to get filled as able 7. Obesity (BMI 35.0-39.9 without comorbidity) - ICD9: 278.00, ICD10: E66.9 Weight decreasing - Behavioral intervention Get Osman MD documented in this encounter [facility] 08-04-2021 History of Present illness Narrative Images from the original note were not included. RHEUMATOLOGY EST PATIENT VISIT Patients name: Sukhjinder Hassan [place] : 1990 Today's date: 08/04/2021 Reason for visit: f/u patient,initally referred by Dr. Osman for treatment of RA . Disease summary: Seronegative RA diagnosed in [address] Valdez Status: controlled. Serology: +ve -ve PHAM, TAQUERIA, CCP, RF, HLA B27 Biopsy: 2018: The epidermal nerve fiber densities are normal at all sites. There is no evidence of a small fiber sensory neuropathy. Radiology:djd Current Meds: Humira 40 mg Q 14 days Pain control: nil Prior Meds: HCQ-> stopped due to GI side effects HPC: This is a 31 y.o. female with a pmhx of hyperparathyoid(s/p parathyroidectomy) epilepsy, Asha-Schlatter disease, anxiety, depression, headaches, seasonal allergies, HTN, obesity, type allergy, GERD, PBA, KATHLEEN, POTS syndrome with negative testing,FM who is here to establish care with a manager plumbing. Currently she does not complain of any significant joint pain, redness or swelling. She feels of the Humira and methotrexate are working very well for her. She does not have any GI side effects as result of the Humira. She finds it very difficult to exercise on account of pots syndrome. POTS symptoms with negative work up: TST disclosed an essentially normal resolved with no definite evidence of an underlying autonomic/small fiber neuropathy or with problems of thermoregulation in general. QSART, 05/04/16 QSART responses at the left forearm, proximal leg, distal leg , and foot are normal. There is no evidence of a significant postganglionic sympathetic sudomotor abnormality like that seen in autonomic/small fiber neuropathy ANS reflexes, 05/04/16 This is a normal cardiovascular autonomic test panel. There is no evidence of a significant cardiovagal or cardiovascular adrenergic abnormality. EPS tilt, 05/03/16 abnormal tilt with frequent unifocal and uniformed short coupled PVCs at baseline,with bigeminy, trigeminy, quad etc.resolving during tilt, but recurring in recovery. Patient tolerated 45 minutes of tilt without syncope, loss of consciousness, orthostatic hypotension, vasovagal response, or provocation of her clinical dizziness. There was a tendency towards increased chronotropic response/orthostatic tachycardia with marked sinus arrhythmia. There were no EKG changes. QT normal results were discussed with Dr. Rene. Suggest cardiovascular evaluation echo and Holter. discussed with patient who previously been on neudexta but now admits she's probably not taken it in a month. Prior Rheumatology appointments: 02/04/2020 - w/u for RA was negative Interim: Patient reports doing very well with Humira injections. She denies any significant joint swelling or redness. She has continued sleep issues along with fibromyalgia. Patient recently developed dry eyes for which she is seeing an motorcycle subassembler at the [facility] for. She is started on Restasis and has had tear duct plugs placed. I have reviewed the patient's medical history in detail and updated the computerized patient record. Past Medical History: Diagnosis Date Depression Fibromyalgia, primary GERD (gastroesophageal reflux disease) Past Surgical History: Procedure Laterality Date HYSTERECTOMY (CERVIX REMOVED) NASAL SEPTUM SURGERY PARATHYROID WISDOM TOOTH EXTRACTION Social History Tobacco Use Smoking status: Never Smoker Smokeless tobacco: Never Used Vaping Use Vaping Use: Never used Substance Use Topics Alcohol use: Yes Comment: occassionaly Drug use: Never Family History Problem Relation Age of Onset Broken bones Mother Diabetes Mother Arthritis Mother Allergies Allergen Reactions Bupropion Hcl Unknown Menstrual cramping / spotting Duloxetine Unknown Menstrual cramping / spotting Outpatient Medications Marked as Taking for the 08/04/21 encounter (Office Visit) with Darleen Carlton MD Medication Sig Dispense Refill adalimumab (Humira) 40 mg/0.8 mL syringe Inject 0.8 mL (40 mg total) under the skin every 14 (fourteen) days . 6 each 3 cholecalciferol, vitamin D3, 1,000 unit tablet Take 1,000 Units by mouth daily . citalopram (CELEXA) 10 MG tablet Take 10 mg by mouth daily . lidocaine (LIDODERM) 5 % patch Place 1 patch on the skin daily . meloxicam (MOBIC) 15 MG tablet Take 15 mg by mouth daily . Nuedexta 20-10 mg cap Take by mouth 2 (two) times a day . omega-3 fatty acids/fish oil (fish oil-omega-3 fatty acids) 300-1,000 mg capsule Take 2 g by mouth daily . ondansetron (ZOFRAN) 4 MG tablet Take 4 mg by mouth every 8 (eight) hours as needed . pantoprazole (PROTONIX) 20 MG tablet Take 20 mg by mouth daily . ZOLMitriptan (ZOMIG) 2.5 MG tablet Take 2.5 mg by mouth as needed for migraine . Review of Systems: General Constitutional: Denied fevers, chills, anorexia, weight loss, or night sweats Eyes: denied blurry vision, dry eyes ENT: denied nasal drainage, sinus pressure, nasal ulcers Mouth: denied oral ulcers, dry mouth Lymphatics: no new adenopathy in cervical, supraclavicular, axillary, inguinal regions Respiratory: no cough, SOB CV: denied palpitations, chest pain/pressure, PND, orthopnea. GI: denied abd pain, n/v/d, constipation, melena. : denied dysuria, urgency, frequency or hematuria. Skin: no rashes or lesions Musculoskeletal: as per HPI Hematologic/lmmunologic: no adenopathy, bleeding, easy bruisiality or recurrent infection. Neurology: Denied new headaches, speech/balance/coordination problems. Denied new focal numbness or weakness of extremities Psych: denied anxiety, depression or mood swings A 10 point review of systems was completed. Physical Exam: BP 105/67 Pulse 85 Wt 112.9 kg (249 lb) BMI 35.73 kg/m Gen: NAD, resting comfortably,Alert, cooperative, no distress, appears stated age HEENT: NCAT, no temporal wasting, EOMI, perrl, anicteric sclerae, mmm, no op lesions Neck: supple, no thyromegaly or LAD, no bruits Lymphatics: no cervical, axillary, or inguinal adenopathy Chest: Good a/e b/l, no added sounds, no respiratory distress CV: RRR, no m/r/g, normal S1, S2 Abd: soft, nontender, nondistended, +BS, no hepatosplenomegaly Ext: no clubbing, cyanosis or edema MSK: No synovitis of the MCPs or PIPs. Crepitus of the knees no effusion or warmth. Skin: no rashes or lesions Neuro: no focal deficits, moves all four extremities Psych: Mood and affect appropriate DATA: I have reviewed lab work and imaging. Labs:reviewed. Imaging: reviewed. Health Maintenance Due Topic Date Due Wellness Visit Never done HIV Screening Never done Hepatitis C Screening Never done Assessment & Plan H/o Inflammatory arthritis-controlled -Her x-rays do not show any evidence of an inflammatory arthritis. -As per history her symptoms were more in keeping with fibromyalgia. -There is no change since we stopped her methotrexate. -We will continue her on Humira and see her back on a yearly basis. Dry eyes -TAQUERIA panel today - now using restasis, eye plugs in place. Long-term Humira user-no side effects All biologics suppress the immune system and increase the risk of infections. -People who take biologics are huff[place] likely to get infections such as upper respiratory infections, pneumonia, urinary tract infections, and skin infections. -Increased risk of opportunistic infections. -Risk of injection site reaction. -Counseled to hold biological if active infection or fever. -Advised to obtain vaccinations (PCV13 first then PPSV23 8 weeks later, yearly flu, hpv, shingrix,COVID) -Patient that have been treated with high-dose steroids, alkylating agents, antimetabolites or biologicals that are immunosuppressive or immunomodulator should receive a 3rd dose of the Cequint or moderna mRNA Covid vaccine. The patient indicates understanding of these issues and agrees with the plan. Return to clinic in 12 month(s) Telehealth appointments ok Darleen Carlton MD Videotape Editor Manager Training And Development Note: To expedite correspondence this note was generated by [employer] voice recognition software. Some grammatical or spelling errors may occur using the system. documented in this encounter [facility] 06-24-2021 History of Present illness Narrative Assessment and Plan 1. 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 Now just irritation/ dry feeling -tried artificial tears and ointment, hot compresses, and omega-3 with no help -has mild obstructive sleep apnea -patient with migraines - recently started on topamax Plan: -start restasis twice a day both eyes -0.3 mm [place] Soft Plugs today Both Eyes, lower lids, -follow-up 3 months / sooner as needed I have confirmed and edited as necessary the relevant ophthalmic history, ROS, and the neuro exam findings as obtained by others. I have seen and examined Sukhjinder Nieves. I have discussed the case and the management of this patient's care with the Resident/Fellow, if applicable. I also have reviewed and agree with the assessment and plan as stated above and agree with all of its relevant components. Valentin Hendrickson MD documented in this encounter [facility] 08-05-2020 History of Present illness Narrative RHEUMATOLOGY EST PATIENT VISIT Patients name: Sukhjinder Nieves : 1990 Today's date: 08/04/2020 Reason for visit: f/u patient,initally referred by Dr. Osman for treatment of RA . Disease summary: Seronegative RA diagnosed in [address] Valdez Status: controlled. Serology: +ve -ve PHAM, TAQUERIA, CCP, RF Biopsy: 2018: The epidermal nerve fiber densities are normal at all sites. There is no evidence of a small fiber sensory neuropathy. Radiology:djd Current Meds: Humira 40 mg Q 14 days Pain control: nil Prior Meds: HCQ-> stopped due to GI side effects HPC: This is a 30 y.o. female with a pmhx of hyperparathyoid(s/p parathyroidectomy) epilepsy, Asha-Schlatter disease, anxiety, depression, headaches, seasonal allergies, HTN, obesity, type allergy, GERD, PBA, KATHLEEN, POTS syndrome with negative testing,FM who is here to establish care with a manager plumbing. Currently she does not complain of any significant joint pain, redness or swelling. She feels of the Humira and methotrexate are working very well for her. She does not have any GI side effects as result of the Humira. She finds it very difficult to exercise on account of pots syndrome. POTS symptoms with negative work up: TST disclosed an essentially normal resolved with no definite evidence of an underlying autonomic/small fiber neuropathy or with problems of thermoregulation in general. QSART, 05/04/16 QSART responses at the left forearm, proximal leg, distal leg , and foot are normal. There is no evidence of a significant postganglionic sympathetic sudomotor abnormality like that seen in autonomic/small fiber neuropathy ANS reflexes, 05/04/16 This is a normal cardiovascular autonomic test panel. There is no evidence of a significant cardiovagal or cardiovascular adrenergic abnormality. EPS tilt, 05/03/16 abnormal tilt with frequent unifocal and uniformed short coupled PVCs at baseline,with bigeminy, trigeminy, quad etc.resolving during tilt, but recurring in recovery. Patient tolerated 45 minutes of tilt without syncope, loss of consciousness, orthostatic hypotension, vasovagal response, or provocation of her clinical dizziness. There was a tendency towards increased chronotropic response/orthostatic tachycardia with marked sinus arrhythmia. There were no EKG changes. QT normal results were discussed with Dr. Rene. Suggest cardiovascular evaluation echo and Holter. discussed with patient who previously been on neudexta but now admits she's probably not taken it in a month. Prior Rheumatology appointments: 02/04/2020 - w/u for RA was negative Interim: Patient has been doing very well other than her current issues of fibromyalgia and body pain. She has significant sleep issues and a drug that she has been on for many years is now being revoked by her insurance company. She does not experience any significant joint swelling or redness that would be indicative of synovitis since she stopped the methotrexate. I have reviewed the patient's medical history in detail and updated the computerized patient record. Past Medical History: Diagnosis Date Depression Fibromyalgia, primary GERD (gastroesophageal reflux disease) Past Surgical History: Procedure Laterality Date HYSTERECTOMY (CERVIX REMOVED) NASAL SEPTUM SURGERY PARATHYROID WISDOM TOOTH EXTRACTION Social History Tobacco Use Smoking status: Never Smoker Smokeless tobacco: Never Used Substance Use Topics Alcohol use: Yes Comment: occassionaly Drug use: Never Family History Problem Relation Age of Onset Broken bones Mother Diabetes Mother Arthritis Mother Allergies Allergen Reactions Bupropion Hcl Unknown Menstrual cramping / spotting Duloxetine Unknown Menstrual cramping / spotting No outpatient medications have been marked as taking for the 08/05/20 encounter (Appointment) with Darleen Carlton MD. Review of Systems: General Constitutional: Denied fevers, chills, anorexia, weight loss, or night sweats Eyes: denied blurry vision, dry eyes ENT: denied nasal drainage, sinus pressure, nasal ulcers Mouth: denied oral ulcers, dry mouth Lymphatics: no new adenopathy in cervical, supraclavicular, axillary, inguinal regions Respiratory: no cough, SOB CV: denied palpitations, chest pain/pressure, PND, orthopnea. GI: denied abd pain, n/v/d, constipation, melena. : denied dysuria, urgency, frequency or hematuria. Skin: no rashes or lesions Musculoskeletal: as per HPI Hematologic/lmmunologic: no adenopathy, bleeding, easy bruisiality or recurrent infection. Neurology: Denied new headaches, speech/balance/coordination problems. Denied new focal numbness or weakness of extremities Psych: denied anxiety, depression or mood swings A 10 point review of systems was completed. Physical Exam: BP 118/78 Pulse 96 Wt 116.1 kg (256 lb) BMI 36.73 kg/m Gen: NAD, resting comfortably,Alert, cooperative, no distress, appears stated age HEENT: NCAT, no temporal wasting, EOMI, perrl, anicteric sclerae, mmm, no op lesions Neck: supple, no thyromegaly or LAD, no bruits Lymphatics: no cervical, axillary, or inguinal adenopathy Chest: Good a/e b/l, no added sounds, no respiratory distress CV: RRR, no m/r/g, normal S1, S2 Abd: soft, nontender, nondistended, +BS, no hepatosplenomegaly Ext: no clubbing, cyanosis or edema MSK: No synovitis of the MCPs or PIPs. Crepitus of the knees no effusion or warmth. Skin: no rashes or lesions Neuro: no focal deficits, moves all four extremities Psych: Mood and affect appropriate DATA: I have reviewed lab work and imaging. Labs:reviewed. Imaging: reviewed. Health Maintenance Due Topic Date Due Pap Smear Never done Wellness Visit Never done HIV Screening Never done COVID-19 Vaccine (1) Never done Hepatitis C Screening Never done Assessment & Plan 1. Inflammatory arthritis-controlled -Her x-rays do not show any evidence of an inflammatory arthritis. -As per history her symptoms were more in keeping with fibromyalgia. -There is no change since we stopped her methotrexate. -We will continue her on Humira 40 mg q. 14 days however I discussed with her that if she wishes to consider spacing it Humira but that is an option. -We will see her back in 6 months, she would is been advised to call if she experiences any issues before then -She also has fibromyalgia, has a medication for migraines and I discussed Topamax might be beneficial for her as it would cover several issues: Fibromyalgia/weight gain/migraines. 2. Long-term Humira user-no side effects -People who take biologics are huffman likely to get infections such as upper respiratory infections, pneumonia, urinary tract infections, and skin infections. -Increased risk of opportunistic infections. -Risk of injection site reaction. -Counseled to hold biological if active infection or fever. -Advised to obtain vaccinations (PCV13, PPSV23, flu, COVID), 3. Obesity-counseled -Advised patient to switch out high-calorie soda drinks for low-calorie fizzy water. -Offered her weight management referral. The patient indicates understanding of these issues and agrees with the plan. Return to clinic in 3 month(s) Telehealth appointments steven Carlton MD Videotape Editor Manager Training And Development Note: To expedite correspondence this note was generated by [employer] voice recognition software. Some grammatical or spelling errors may occur using the system. documented in this encounter 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 10/25/2019 Primary hyperparathyroidism 09/28/201510/02 Secondary hyperparathyroidism, non-renal 016 10/25/2019 Von Willebrand's disease 04/13/2006 017 Obesity 10/25/2019 documented as of this encounter (statuses as of 09/13/2021) [facility] History of Past illness Narrative* Problem Noted Date Resolved Date Class 3 obesity due to exces s calories without serious comorbidity with body mass index (BMI) of 40.0 to 44.9 in adult 01/05/2017 07/01/2018 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 10/25/2019 Primary hyperparathyroidism 09/28/201510/02 Secondary hyperparathyroidism, non-renal 016 10/25/2019 Von Willebrand's disease 04/13/2006 017 Obesity 10/25/2019 documented as of this encounter (statuses as of 10/14/2021) [facility] History of Past illness Narrative* Problem Noted Date Resolved Date Class 3 obesity due to exces s calories without serious comorbidity with body mass index (BMI) of 40.0 to 44.9 in adult 01/05/2017 07/01/2018 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 10/25/2019 Primary hyperparathyroidism 09/28/201510/02 Secondary hyperparathyroidism, non-renal 016 10/25/2019 Von Willebrand's disease 04/13/2006 017 Obesity 10/25/2019 documented as of this encounter (statuses as of 11/30/2021) [facility] History of Past illness Narrative* Problem Noted Date Resolved Date Class 3 obesity due to exces s calories without serious comorbidity with body mass index (BMI) of 40.0 to 44.9 in adult 01/05/2017 07/01/2018 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 10/25/2019 Primary hyperparathyroidism 09/28/201510/02 Secondary hyperparathyroidism, non-renal 016 10/25/2019 Von Willebrand's disease 04/13/2006 017 Obesity 10/25/2019 documented as of this encounter (statuses as of 12/13/2021) [facility] History of Past illness Narrative* Problem Noted Date Resolved Date Class 3 obesity due to exces s calories without serious comorbidity with body mass index (BMI) of 40.0 to 44.9 in adult 01/05/2017 07/01/2018 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 10/25/2019 Primary hyperparathyroidism 09/28/201510/02 Secondary hyperparathyroidism, non-renal 016 10/25/2019 Von Willebrand's disease 04/13/2006 017 Obesity 10/25/2019 documented as of this encounter (statuses as of 04/28/2022) [facility] History of Past illness Narrative* Problem Noted Date Resolved Date Class 3 obesity due to exces s calories without serious comorbidity with body mass index (BMI) of 40.0 to 44.9 in adult 01/05/2017 07/01/2018 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 10/25/2019 Primary hyperparathyroidism 09/28/201510/02 Secondary hyperparathyroidism, non-renal 016 10/25/2019 Von Willebrand's disease 04/13/2006 017 Obesity 10/25/2019 documented as of this encounter (statuses as of 06/29/2022) [facility] History of Past illness Narrative* Problem Noted Date Resolved Date Class 3 obesity due to exces s calories without serious comorbidity with body mass index (BMI) of 40.0 to 44.9 in adult 01/05/2017 07/01/2018 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 10/25/2019 Primary hyperparathyroidism 09/28/201510/02 Secondary hyperparathyroidism, non-renal 016 10/25/2019 Von Willebrand's disease 04/13/2006 017 Obesity 10/25/2019 documented as of this encounter (statuses as of 07/04/2022) [facility] History of Past illness Narrative* Problem Noted Date Resolved Date Class 3 obesity due to exces s calories without serious comorbidity with body mass index (BMI) of 40.0 to 44.9 in adult 01/05/2017 07/01/2018 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 10/25/2019 Primary hyperparathyroidism 09/28/201510/02 Secondary hyperparathyroidism, non-renal 016 10/25/2019 Von Willebrand's disease 04/13/2006 017 Obesity 10/25/2019 documented as of this encounter (statuses as of 09/29/2022) [facility] History of Past illness Narrative* Problem Noted Date Diagnosed Date Resolved Date Class 3 obesity due to exces s calories without serious comorbidity with body mass index (BMI) of 40.0 to 44.9 in adult 01/05/2017 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 10/25/2019 Primary hyperparathyroidism 09/28/2015 10/25/2019 Secondary hyperparathyroidism, non-renal 09/28/2015 10/25/2019 Von Willebrand's disease 04/13/2006 Obesity 10/25/2019 documented as of this encounter (statuses as of 11/03/2022) [facility] History of Past illness Narrative* Problem Noted Date Diagnosed Date Resolved Date Class 3 obesity due to exces s calories without serious comorbidity with body mass index (BMI) of 40.0 to 44.9 in adult 01/05/2017 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 10/25/2019 Primary hyperparathyroidism 09/28/2015 10/25/2019 Secondary hyperparathyroidism, non-renal 09/28/2015 10/25/2019 Von Willebrand's disease 04/13/2006 Obesity 10/25/2019 documented as of this encounter (statuses as of 11/07/2022) [facility] History of Past illness Narrative* Problem Noted Date Diagnosed Date Resolved Date Class 3 obesity due to exces s calories without serious comorbidity with body mass index (BMI) of 40.0 to 44.9 in adult 01/05/2017 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 10/25/2019 Primary hyperparathyroidism 09/28/2015 10/25/2019 Secondary hyperparathyroidism, non-renal 09/28/2015 10/25/2019 Von Willebrand's disease 04/13/2006 Obesity 10/25/2019 documented as of this encounter (statuses as of 12/02/2022) [facility] History of Past illness Narrative* Problem Noted Date Diagnosed Date Resolved Date Class 3 obesity due to exces s calories without serious comorbidity with body mass index (BMI) of 40.0 to 44.9 in adult 01/05/2017 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 10/25/2019 Primary hyperparathyroidism 09/28/2015 10/25/2019 Secondary hyperparathyroidism, non-renal 09/28/2015 10/25/2019 Von Willebrand's disease 04/13/2006 Obesity 10/25/2019 documented as of this encounter (statuses as of 12/06/2022) [facility] History of Past illness Narrative* Problem Noted Date Diagnosed Date Resolved Date Class 3 obesity due to exces s calories without serious comorbidity with body mass index (BMI) of 40.0 to 44.9 in adult 01/05/2017 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 10/25/2019 Primary hyperparathyroidism 09/28/2015 10/25/2019 Secondary hyperparathyroidism, non-renal 09/28/2015 10/25/2019 Von Willebrand's disease 04/13/2006 Obesity 10/25/2019 documented as of this encounter (statuses as of 12/15/2022) [facility] History of Past illness Narrative* Problem Noted Date Diagnosed Date Resolved Date Class 3 obesity due to exces s calories without serious comorbidity with body mass index (BMI) of 40.0 to 44.9 in adult 01/05/2017 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 10/25/2019 Primary hyperparathyroidism 09/28/2015 10/25/2019 Secondary hyperparathyroidism, non-renal 09/28/2015 10/25/2019 Von Willebrand's disease 04/13/2006 Obesity 10/25/2019 documented as of this encounter (statuses as of 12/28/2022) [facility] History of Past illness Narrative* Problem Noted Date Diagnosed Date Resolved Date Class 3 obesity due to exces s calories without serious comorbidity with body mass index (BMI) of 40.0 to 44.9 in adult 01/05/2017 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 10/25/2019 Primary hyperparathyroidism 09/28/2015 10/25/2019 Secondary hyperparathyroidism, non-renal 09/28/2015 10/25/2019 Von Willebrand's disease 04/13/2006 Obesity 10/25/2019 documented as of this encounter (statuses as of 12/30/2022) [facility] History of Past illness Narrative* Problem Noted Date Diagnosed Date Resolved Date Class 3 obesity due to exces s calories without serious comorbidity with body mass index (BMI) of 40.0 to 44.9 in adult 01/05/2017 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 10/25/2019 Primary hyperparathyroidism 09/28/2015 10/25/2019 Secondary hyperparathyroidism, non-renal 09/28/2015 10/25/2019 Von Willebrand's disease 04/13/2006 Obesity 10/25/2019 documented as of this encounter (statuses as of 01/10/2023) [facility] History of Past illness Narrative* Problem Noted Date Diagnosed Date Resolved Date Class 3 obesity due to exces s calories without serious comorbidity with body mass index (BMI) of 40.0 to 44.9 in adult 01/05/2017 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 10/25/2019 Primary hyperparathyroidism 09/28/2015 10/25/2019 Secondary hyperparathyroidism, non-renal 09/28/2015 10/25/2019 Von Willebrand's disease 04/13/2006 Obesity 10/25/2019 documented as of this encounter (statuses as of 01/31/2023) [facility] History of Past illness Narrative* Problem Noted Date Diagnosed Date Resolved Date Class 3 obesity due to exces s calories without serious comorbidity with body mass index (BMI) of 40.0 to 44.9 in adult 01/05/2017 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 10/25/2019 Primary hyperparathyroidism 09/28/2015 10/25/2019 Secondary hyperparathyroidism, non-renal 09/28/2015 10/25/2019 Von Willebrand's disease 04/13/2006 Obesity 10/25/2019 documented as of this encounter (statuses as of 02/05/2023) [facility] History of Past illness Narrative* Problem Noted Date Diagnosed Date Resolved Date Class 3 obesity due to exces s calories without serious comorbidity with body mass index (BMI) of 40.0 to 44.9 in adult 01/05/2017 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 10/25/2019 Primary hyperparathyroidism 09/28/2015 10/25/2019 Secondary hyperparathyroidism, non-renal 09/28/2015 10/25/2019 Von Willebrand's disease 04/13/2006 Obesity 10/25/2019 documented as of this encounter (statuses as of 02/15/2023) [facility] History of Past illness Narrative* Problem Noted Date Diagnosed Date Resolved Date Class 3 obesity due to exces s calories without serious comorbidity with body mass index (BMI) of 40.0 to 44.9 in adult 01/05/2017 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 Diagnosis Rheumatoid arthritis, involving unspecified site, unspecified whether rheumatoid factor present (HCC) Adalimumab (Humira) long-term use [facility] Diagnosis Dry eye syndrome of both eyes- Primary Floppy eyelid syndrome of both eyes [facility] Diagnosis Inflammatory arthritis- Primary Unspecified inflammatory polyarthropathy Dry eyes, bilateral Encounter for screening for other viral diseases Adalimumab (Humira) long-term use [facility] Diagnosis Postural orthostatic tachycardia syndrome- Primary Tachycardia, unspecified Migraine without aura and without status migrainosus, not intractable Migraine without aura, without mention of intractable migraine without mention of status migrainosus Other chronic pain Gastroesophageal reflux disease without esophagitis Esophageal reflux Anxiety and depression Dysthymic disorder Narcolepsy due to underlying condition without cataplexy Obesity (BMI 35.0-39.9 without comorbidity) Obesity, unspecified documented in this encounter [facility] note* Diagnosis Rheumatoid arthritis, involving unspecified site, unspecified whether rheumatoid factor present (HCC) Adalimumab (Humira) long-term use [facility] Diagnosis Dry eye syndrome of both eyes- Primary Floppy eyelid syndrome of both eyes documented in this encounter [facility] note* Diagnosis Narcolepsy without cataplexy- Primary documented in this encounter [facility] note* Diagnosis Rheumatoid arthritis, involving unspecified site, unspecified whether rheumatoid factor present (HCC) Adalimumab (Humira) long-term use documented in this encounter [facility] note* Diagnosis Dry eye syndrome of both eyes- Primary Floppy eyelid syndrome of both eyes S/P placement of implantable collamer lens (ICL) documented in this encounter [facility] note* Diagnosis Need for vaccination- Primary Need for prophylactic vaccination and inoculation against unspecified single disease documented in this encounter [facility] note* Diagnosis Anxiety and depression- Primary Dysthymic disorder Migraine without aura and without status migrainosus, not intractable Migraine without aura, without mention of intractable migraine without mention of status migrainosus Class 1 obesity due to excess calories without serious comorbidity with body mass index (BMI) of 31.0 to 31.9 in adult PBA (pseudobulbar affect) Pseudobulbar affect Vitamin D deficiency Unspecified vitamin D deficiency Encounter for immunization Need for other specified prophylactic vaccination against single bacterial disease documented in this encounter [facility] note* Diagnosis H/O chronic inflammatory arthritis- Primary Rheumatoid arthritis, involving unspecified site, unspecified whether rheumatoid factor present (HCC) Adalimumab (Humira) long-term use Obesity (BMI 30-39.9) Encounter for screening for other viral diseases Low vitamin D level Healthcare maintenance 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 Osteomalacia, unspecified documented in this encounter [facility] note* Diagnosis Obesity, Class I, BMI 30-34.9- Primary Obesity, unspecified Migraine without aura and without status migrainosus, not intractable Migraine without aura, without mention of intractable migraine without mention of status migrainosus Other chronic pain Generalized articular hypermobility Other joint derangement, not elsewhere classified, multiple sites documented in this encounter [facility] note* Diagnosis Rheumatoid arthritis, involving unspecified site, unspecified whether rheumatoid factor present (HCC) Adalimumab (Humira) long-term use documented in this encounter [facility] note* Diagnosis Class 1 obesity with serious comorbidity and body mass index (BMI) of 30.0 to 30.9 in adult, unspecified obesity type- Primary Obesity, Class I, BMI 30-34.9 Obesity, unspecified [facility]* Diagnosis Gastroesophageal reflux disease without esophagitis Esophageal reflux Anxiety and depression Dysthymic disorder documented in this encounter [facility] note* Diagnosis Need for vaccination- Primary Need for prophylactic vaccination and inoculation against unspecified single disease documented in this encounter [facility] note* Diagnosis H/O chronic inflammatory arthritis- Primary Hypermobility arthralgia Pain in joint, site unspecified documented in this encounter [facility] note* Diagnosis POTS (postural orthostatic tachycardia syndrome)- Primary Tachycardia, unspecified documented in this encounter [facility] note* Diagnosis Hiatal hernia- Primary Diaphragmatic hernia without mention of obstruction or gangrene Gastroesophageal reflux disease without esophagitis Esophageal reflux Dyspepsia Dyspepsia and other specified disorders of function of stomach documented in this encounter [facility] note* Diagnosis Narcolepsy without cataplexy documented in this encounter [facility] note* Diagnosis Dyspepsia Dyspepsia and other specified disorders of function of stomach documented in this encounter [facility] note* Diagnosis Cyst of right ovary- Primary Other and unspecified ovarian cyst Lower abdominal pain Abdominal pain, other specified site documented in this encounter [facility] Work Phone: Evaluation note* Diagnosis Encounter for weight management- Primary Class 1 obesity with serious comorbidity and body mass index (BMI) of 30.0 to 30.9 in adult, unspecified obesity type documented in this encounter [facility] note* Diagnosis Narcolepsy without cataplexy [facility] arrives to outpatient PT c/o . Pt presents with the following impairments: . These impairments contribute to difficulty in activity limitations and participation restrictions including . Thept s signs and symptoms are consistent with likely . The pt will benefit from skilled PT [id number] for 8 weeks to address the above stated impairments and functional limitations to maximize p articipation and ease in household, social, and work related activities. The pt has a prognosis when considering positive factors including with barriers such as . The pt verbalized understanding and agreement to goals and POC. Thank you for this referral and please call [phone] with any questions or concerns. * Clinical Presentation: Stable and/or uncomplicated characteristics. * Level of Complexity: low * Problem List: activity limitations, ADLs/IADLs/self care skills, decreased knowledge of HEP, flexibility, pain, participation restrictions, range of motion/joint mobility and strength. [facility] Work Phone: History of Present illness Narrative* Sukhjinder Nieves, a 32 year old female, arrives to outpatient PT with increased hypermobility of major joints. Pt presents with the following impairments: Increased mobility of B GH joint, ankles, andknees, and B UE and LE musculature strength weakness/instability. These impairments contribute to difficulty in activity limitations and participation restrictions including exercise, lifting, ambulation, household management, and performing community engagement. The pt will benefit from skilled PTservices 2x/week for 3 weeks to address the above stated impairments and functional limitations to maximize participation and ease in household and social related activities. The pt has a good prognosis when considering positive factors including age and current activity level with barriers such asmultiple medical comorbidities. Educated in stability exercises and performing within painfree ROM as well as preventing hyperextension of joints with completion. Patient demonstrating good understanding. HEP handout provided. No change in pain post treatment. The pt verbalized understanding and agreement to goals and POC. Thank you for this referral and please call [phone] with any questions or concerns. * Clinical Presentation: Stable and/or uncomplicated characteristics. * Level of Complexity: low * Problem List: activity limitations, ADLs/IADLs/self care skills, decreased knowledge of HEP, flexibility, pain, participation restrictions, range of motion/joint mobility and strength. [facility] Work Phone: History of Present illness Narrative* Patient confirmed name and date of this session. * VCs during kegel to fully relax after each rep. Pt rotating trunk with shoulder ER which improves slightly with VCs. Added multiple new activities to address proximal muscle strengthening and updatedHEP. Pt with good ability to avoid hyperextend. [facility] Work Phone: History of Present illness NarrativePatient identified by name and date of . Attempted kegles with several verbal cues, unable to palpate, instructions provided for self internal palpation for HEP. She was able to progress with reps this date at end of the treatment she reported she has been preforming more increased reps with addition of resistance with HEP therefore will progress next treatment.[facility] Work Phone: History of Present illness Narrative* Patient identified by name and * Patient appropriately challenged. Able to tolerate progressions with mild difficulty. Demo's no increased symptoms throughout session. Verbal cues for slow controlled motions through available range with patient samra'g good understanding. [facility] Work Phone: History of Present illness Narrative* Patient identified by name and . * Pt with good form throughout with ability to hold TrA with most activities. Progressed/ added multiple activities without c/o pain. VCs to slow movements during session. [facility] Work Phone: History of Present illness Narrative* Patient identified by name and * Patient 8 minutes late for session. D/t time constraints unable to get through all exercises. Patient able to tolerate progressions with no c/o increased symptoms. Does demo good form throughout session. [facility] Work Phone: History of Present illness Narrative* Patient identified by name and * Patient appropriately challenged. Able to tolerate progressions with mild difficulty. Demo's no increased symptoms throughout session. Verbal cues for slow controlled motions through available range with patient samra'blaire good understanding. [facility] Work Phone: History of Present illness NarrativePatient was identified by name and date. Patient 10 mins late to session. This session able to progress stability exercises without c/o.[facility] Work Phone: History of Present illness Narrative* Patient identified by name and * Patient appropriately challenged. Patient able to tolerate session with progressions and good form noted throughout. Patient demo's no increased symptoms. [facility] Work [facility]: History of Present illness Narrative* Patient identified by name and * Patient appropriately challenged. Patient able to tolerate session with progressions and good form noted throughout. Patient demo's no increased symptoms. [facility] Work Phone: History of Present illness NarrativeGood tolerance to progression in core and B hip strengthening. Increased sway of ankle with step ups onto BOSU L>R. Educated for 4-way ankle to increase LE stability with patient demonstrating andverbalizing understanding. Updated HEP handout provided. Fatigue of LE with CKC strengthening with squats. No change in pain post treatment. [facility] Work Phone: History of Present illness NarrativeSignificant instability observed with bird dogs despite VCs for TrA. Able to add multiple activities to strengthen the lumbar paraspinals with definite weakness observed as she is unable to move through full ROM. Pain in knees with wall squats/ sits. [facility] Work Phone: History of Present illness NarrativeEmphasis on core and hip musculature strengthening. Noted core instability when performing birddogsas well as when maintaining bridge with use of ethiopian ball. Trunk sway with UE exercises seated on ethiopian ball. Fatigue noted at end of session but no exacerbation of pain. [facility] Work Phone: Reason for referral (narrative)* Diagnostic Procedure Only (Routine) - Authorized Specialty Diagnoses / Procedures Referred By Alphonso de jesus Referred To Contact XR IMAGING Diagnoses Gastroesophageal reflux disease without esophagitis Hiatal hernia Procedures XR ESOPHAGRAM RADIOLOGIC EXAM ESOPHAGUS SINGLE CONTRAST STUDY Tawnya Wise APRN.CNP [address] [place] [address] [place] [id number] Referral ID Status Reason Start Date Expiration Date Visits Requested Visits Authorized [id number] Authorized Auto-Generat ed Referral 12/27/2022 01/26/2024 1 1 * Consult, Test, Treat (Routine) - Pending Review Specialty Diagnoses / Procedures Referred By Alphonso de jesus Referred To Contact General Surgery Diagnoses Gastroesophageal reflux disease without esophagitis Hiatal hernia Dyspepsia Procedures CONSULT TO GENERAL SURGERY OFFICE/OUTPATIENT [facility] 60-74 MINUTES Tawnya Wise APRN.CNP [address] [place] [id number] Referral ID Status Reason Start Date Expiration Date Visits Requested Visits Authorized [id number] Pending Review PCP Requested Referral 12/27/2022 12/27/2023 1 1 * Diagnostic Procedure Only (Routine) - Authorized Specialty Diagnoses / Procedures Referred By Contac t Referred To Contact MOLECULAR & FUNCTIONAL IMAGING Diagnoses Dyspepsia Procedures NM GASTRIC EMPTYING SOLID GASTRIC EMPTYING STUDY Tawnya Wise APRN.CNP [address] [place], [place] [id number] Molecular & Functional Imaging [address] [place] [address] Referral ID Status Reason Start Date Expiration Date Visits Requested Visits Authorized [id number] Authorized Auto-Generat ed Referral 12/27/2022 01/26/2024 1 1 [facility] for referral (narrative)* Diagnostic Procedure Only (Routine) - Closed Specialty Diagnoses / Procedures Referred By Contac t Referred To Contact MOLECULAR & FUNCTIONAL IMAGING Diagnoses Dyspepsia Procedures NM GASTRIC EMPTYING SOLID GASTRIC EMPTYING STUDY Tawnya Wise APRN.CNP [address] [place], [place] [id number] Molecular & Functional Imaging [address] [place] [address] Referral ID Status Reason Start Date Expiration Date V isits Requested Visits Authorized [id number] Closed Auto-Generate d Referral 12/27/2022 01/26/2024 1 1 [facility] for visit Narrative* Initial Evaluation . Hypermobility. * Referred by: Tawnya BAKER [facility] Work Phone: Reason for visit Narrative* Initial Evaluation . Hypermobility. * Referred by: Tawnya Wise APRN-МАРИЯ [facility] Work Phone: Summary Purpose Family History No Family History Records FoundNo Family History Records FoundNo Family History Records FoundNo Family History Records FoundNo Family History Records FoundNo Family History Records FoundNo Family History Records FoundNo Family History Records FoundNo Family History Records Found Advance Directives No Advanced Directives Records FoundDocuments on File Type Date Recorded Patient Item Repair Manager Expl anation Advance Directives and Livin g Will 02/04/2020 10:00 AM Documents on File Type Date Recorded Patient Item Repair Manager Expl anation Advance Directives and Livin g Will 02/04/2020 10:00 AM History of Present Illness * Darleen Carlton MD - 02/04/2020 9:00 AM EST RHEUMATOLOGY NEW PATIENT VISIT Patients name: Sukhjinder Hassan [employer] : 1990 Today's date: 02/04/2020 Reason for visit: New patient, referred by Dr. Osman for treatment of RA . Disease summary: Seronegative RA diagnosed in 2014. Status: controlled. Serology: +ve -ve PHAM, TAQUERIA, CCP, RF Biopsy: 2018: The epidermal nerve fiber densities are normal at all sites. There is no evidence of a small fiber sensory neuropathy. Radiology:djd Current Meds: Humira 40 mg once a week,MTX 2.5mg tablets, 20mg/wk + FA Pain control: nil Prior Meds: HCQ-> stopped due to GI side effects HPC: This is a 30 y.o. female with a pmhx of hyperparathyoid(s/p parathyroidectomy) epilepsy, Oakley-Schlatter disease, anxiety, depression, headaches, seasonal allergies, HTN, obesity, type allergy,GERD, PBA, KATHLEEN, POTS syndrome with negative testing,FM who is here to establish care with a rheumato logist. Currently she does not complain of any significant joint pain, redness or swelling. She feels of the Humira and methotrexate are working very well for her. She does not have any GI side effects as result of the Humira. She finds it very difficult to exercise on account of pots syndrome. POTS symptoms with negative work up: TST disclosed an essentially normal resolved with no definite evidence of an underlying autonomic/small fiber neuropathy or with problems of thermoregulation in general. QSART, 05/04/16 QSART responses at the left forearm, proximal leg, distal leg , and foot are normal. There is no evidence of a significant postganglionic sympathetic sudomotor abnormality like that seen in autonomic/small fiber neuropathy ANS reflexes, 05/04/16 This is a normal cardiovascular autonomic test panel. There is no evidence of a significant cardiovagal or cardiovascular adrenergic abnormality. EPS tilt, 05/03/16 abnormal tilt with frequent unifocal and uniformed short coupled PVCs at baseline,with bigeminy, trigeminy, quad etc.resolving during tilt, but recurring in recovery. Patient tolerated 45 minutes of tilt without syncope, loss of consciousness, orthostatic hypotension, vasovagal response, or provocation of her clinical dizziness. There was a tendency towards increased chronotropic response/orthostatic tachycardia with marked sinus arrhythmia. There were no EKG changes. QT normal results were discussed with Dr. Rene. Suggest cardiovascular evaluation echo and Holter. discussed with patient who previously been on neudexta but now admits she's probably not taken it in a month. I have reviewed the patient's medical history in detail and updated the computerized patient record. Past Medical History: Diagnosis Date Depression Fibromyalgia, primary GERD (gastroesophageal reflux disease) Past Surgical History: Procedure Laterality Date HYSTERECTOMY (CERVIX REMOVED) NASAL SEPTUM SURGERY PARATHYROID WISDOM TOOTH EXTRACTION Social History Tobacco Use Smoking status: Never Smoker Smokeless tobacco: Never Used Substance Use Topics Alcohol use: Yes Comment: occassionaly Drug use: Never Family History Problem Relation Age of Onset Broken bones Mother Diabetes Mother Arthritis Mother Allergies Allergen Reactions Bupropion Hcl Unknown Menstrual cramping / spotting Duloxetine Unknown Menstrual cramping / spotting Outpatient Medications Marked as Taking for the 02/04/20 encounter (Office Visit) with Darleen Carlton MD Medication Sig Dispense Refill citalopram (CELEXA) 10 MG tablet Take 10 mg by mouth daily . folic acid (FOLVITE) 1 MG tablet Take 1 mg by mouth daily . Humira 40 mg/0.8 mL syringe Inject 40 mg under the skin every 14 (fourteen) days . lidocaine (LIDODERM) 5 % patch Place 1 patch on the skin daily . meloxicam (MOBIC) 15 MG tablet Take 15 mg by mouth daily . methotrexate (TREXALL) 2.5 MG tablet Take 8 (eight) tablets (20 mg total) by mouth once a week . 96tablet 0 Nuedexta 20-10 mg cap Take by mouth 2 (two) times a day . ondansetron (ZOFRAN) 4 MG tablet Take 4 mg by mouth every 8 (eight) hours as needed . pantoprazole (PROTONIX) 20 MG tablet Take 20 mg by mouth daily . ZOLMitriptan (ZOMIG) 2.5 MG tablet Take 2.5 mg by mouth as needed for migraine . [DISCONTINUED] methotrexate (TREXALL) 2.5 MG tablet Take 20 mg by mouth every 7 days . Review of Systems: General Constitutional: Denied fevers, chills, anorexia, weight loss, or night sweats Eyes: denied blurry vision, dry eyes ENT: denied nasal drainage, sinus pressure, nasal ulcers Mouth: denied oral ulcers, dry mouth Lymphatics: no new adenopathy in cervical, supraclavicular, axillary, inguinal regions Respiratory: no cough, SOB CV: denied palpitations, chest pain/pressure, PND, orthopnea. GI: denied abd pain, n/v/d, constipation, melena. : denied dysuria, urgency, frequency or hematuria. Skin: no rashes or lesions Musculoskeletal: as per HPI Hematologic/lmmunologic: no adenopathy, bleeding, easy bruisiality or recurrent infection. Neurology: Denied new headaches, speech/balance/coordination problems. Denied new focal numbness orweakness of extremities Psych: denied anxiety, depression or mood swings A 10 point review of systems was completed. Physical Exam: BP 119/81 Pulse (!) 121 Ht 5' 10 Wt 123.4 kg (272 lb) BMI 39.03 kg/m Gen: NAD, resting comfortably,Alert, cooperative, no distress, appears stated age HEENT: NCAT, no temporal wasting, EOMI, perrl, anicteric sclerae, mmm, no op lesions Neck: supple, no thyromegaly or LAD, no bruits Lymphatics: no cervical, axillary, or inguinal adenopathy Chest: Good a/e b/l, no added sounds, no respiratory distress CV: RRR, no m/r/g, normal S1, S2 Abd: soft, nontender, nondistended, +BS, no hepatosplenomegaly Ext: no clubbing, cyanosis or edema MSK: No synovitis of the MCPs or PIPs. Crepitus of the knees no effusion or warmth. Skin: no rashes or lesions Neuro: no focal deficits, moves all four extremities Psych: Mood and affect appropriate DATA: I have reviewed lab work and imaging. Labs:reviewed. Imaging: reviewed. Health Maintenance Due Topic Date Due Tetanus: Every 10yrs 1990 Pap Smear 1990 Wellness Visit 01/07/1992 HIV Screening 01/07/2004 Hepatitis C Screening 2007 Sequential Influenza Vaccine (1) 12/03/2019 Assessment & Plan 1. Rheumatoid arthritis-controlled -Unclear if this is seropositive or seronegative, we will obtain CCP and rheumatoid factor. -We will obtain outside hospital records. -She can continue on her methotrexate 20 mg a week and Humira 40 mg a week. -We will also obtain x-ray of her hands to assess for any erosions of the joints. 2. Long-term methotrexate user-no GI side effects -Patient aware she must obtain lab work every 3 months. -Unable to become because she had a hysterectomy. 3. Long-term Humira therapy-no signs of infection -Counseled patient that she must not take this medication if she has fever. 4. Obesity-counseled -Advised patient to switch out high-calorie soda drinks for low-calorie fizzy water. -Offered her weight management referral. 5. Healthcare maintenance-not UTD -Counseled patient and explained that it is very important that she remains up-to-date with her pneumococcal and influenza vaccinations. The patient indicates understanding of these issues and agrees with the plan. Return to clinic in 3 month(s) Telehealth appointments ok Darleen Carlton MD Videotape Editor Manager Training And Development Note: To expedite correspondence this note was generated by [employer] voice recognition software. Somegrammatical or spelling errors may occur using the system. documented in this encounter* Darleen Carlton MD - 05/05/2020 9:33 PM EST RHEUMATOLOGY EST PATIENT VISIT Patients name: Sukhjinder Hassan [employer]: 1990 Today's date: 05/06/2020 Reason for visit: f/u patient,initally referred by Dr. Osamn for treatment of RA . Disease summary: Seronegative RA diagnosed in [address] Valdez Status: controlled. Serology: +ve -ve PHAM, TAQUERIA, CCP, RF Biopsy: 2018: The epidermal nerve fiber densities are normal at all sites. There is no evidence of a small fiber sensory neuropathy. Radiology:djd Current Meds: Humira 40 mg once a week,MTX 2.5mg tablets, 20mg/wk + FA Pain control: nil Prior Meds: HCQ-> stopped due to GI side effects HPC: This is a 30 y.o. female with a pmhx of hyperparathyoid(s/p parathyroidectomy) epilepsy, Oakley-Schlatter disease, anxiety, depression, headaches, seasonal allergies, HTN, obesity, type allergy,GERD, PBA, KATHLEEN, POTS syndrome with negative testing,FM who is here to establish care with a rheumato logist. Currently she does not complain of any significant joint pain, redness or swelling. She feels of the Humira and methotrexate are working very well for her. She does not have any GI side effects as result of the Humira. She finds it very difficult to exercise on account of pots syndrome. POTS symptoms with negative work up: TST disclosed an essentially normal resolved with no definite evidence of an underlying autonomic/small fiber neuropathy or with problems of thermoregulation in general. QSART, 05/04/16 QSART responses at the left forearm, proximal leg, distal leg , and foot are normal. There is no evidence of a significant postganglionic sympathetic sudomotor abnormality like that seen in autonomic/small fiber neuropathy ANS reflexes, 05/04/16 This is a normal cardiovascular autonomic test panel. There is no evidence of a significant cardiovagal or cardiovascular adrenergic abnormality. EPS tilt, 05/03/16 abnormal tilt with frequent unifocal and uniformed short coupled PVCs at baseline,with bigeminy, trigeminy, quad etc.resolving during tilt, but recurring in recovery. Patient tolerated 45 minutes of tilt without syncope, loss of consciousness, orthostatic hypotension, vasovagal response, or provocation of her clinical dizziness. There was a tendency towards increased chronotropic response/orthostatic tachycardia with marked sinus arrhythmia. There were no EKG changes. QT normal results were discussed with Dr. Rene. Suggest cardiovascular evaluation echo and Holter. discussed with patient who previously been on neudexta but now admits she's probably not taken it in a month. Prior Rheumatology appointments: 02/04/2020 - w/u for RA was negative Interim: All of this patient's work-up for rheumatoid arthritis have been negative. Patient reports to me that she was put on immunosuppressive therapy to reduce the inflammation she has in her body . Patient denies any significant joint involvement, joint redness or swelling. I have reviewed the patient's medical history in detail and updated the computerized patient record. Past Medical History: Diagnosis Date Depression Fibromyalgia, primary GERD (gastroesophageal reflux disease) Past Surgical History: Procedure Laterality Date HYSTERECTOMY (CERVIX REMOVED) NASAL SEPTUM SURGERY PARATHYROID WISDOM TOOTH EXTRACTION Social History Tobacco Use Smoking status: Never Smoker Smokeless tobacco: Never Used Substance Use Topics Alcohol use: Yes Comment: occassionaly Drug use: Never Family History Problem Relation Age of Onset Broken bones Mother Diabetes Mother Arthritis Mother Allergies Allergen Reactions Bupropion Hcl Unknown Menstrual cramping / spotting Duloxetine Unknown Menstrual cramping / spotting Outpatient Medications Marked as Taking for the 05/06/20 encounter (Office Visit) with Darleen Carlton MD Medication Sig Dispense Refill adalimumab (Humira) 40 mg/0.8 mL syringe Inject 0.8 mL (40 mg total) under the skin every 14 (fourteen) days . 6 each 1 citalopram (CELEXA) 10 MG tablet Take 10 mg by mouth daily . folic acid (FOLVITE) 1 MG tablet Take 1 mg by mouth daily . lidocaine (LIDODERM) 5 % patch Place 1 patch on the skin daily . meloxicam (MOBIC) 15 MG tablet Take 15 mg by mouth daily . Nuedexta 20-10 mg cap Take by mouth 2 (two) times a day . ondansetron (ZOFRAN) 4 MG tablet Take 4 mg by mouth every 8 (eight) hours as needed . pantoprazole (PROTONIX) 20 MG tablet Take 20 mg by mouth daily . ZOLMitriptan (ZOMIG) 2.5 MG tablet Take 2.5 mg by mouth as needed for migraine . Review of Systems: General Constitutional: Denied fevers, chills, anorexia, weight loss, or night sweats Eyes: denied blurry vision, dry eyes ENT: denied nasal drainage, sinus pressure, nasal ulcers Mouth: denied oral ulcers, dry mouth Lymphatics: no new adenopathy in cervical, supraclavicular, axillary, inguinal regions Respiratory: no cough, SOB CV: denied palpitations, chest pain/pressure, PND, orthopnea. GI: denied abd pain, n/v/d, constipation, melena. : denied dysuria, urgency, frequency or hematuria. Skin: no rashes or lesions Musculoskeletal: as per HPI Hematologic/lmmunologic: no adenopathy, bleeding, easy bruisiality or recurrent infection. Neurology: Denied new headaches, speech/balance/coordination problems. Denied new focal numbness orweakness of extremities Psych: denied anxiety, depression or mood swings A 10 point review of systems was completed. Physical Exam: BP 114/76 Pulse 97 Wt 118.4 kg (261 lb) BMI 37.45 kg/m Gen: NAD, resting comfortably,Alert, cooperative, no distress, appears stated age HEENT: NCAT, no temporal wasting, EOMI, perrl, anicteric sclerae, mmm, no op lesions Neck: supple, no thyromegaly or LAD, no bruits Lymphatics: no cervical, axillary, or inguinal adenopathy Chest: Good a/e b/l, no added sounds, no respiratory distress CV: RRR, no m/r/g, normal S1, S2 Abd: soft, nontender, nondistended, +BS, no hepatosplenomegaly Ext: no clubbing, cyanosis or edema MSK: No synovitis of the MCPs or PIPs. Crepitus of the knees no effusion or warmth. Skin: no rashes or lesions Neuro: no focal deficits, moves all four extremities Psych: Mood and affect appropriate DATA: I have reviewed lab work and imaging. Labs:reviewed. Imaging: reviewed. Health Maintenance Due Topic Date Due Pap Smear 1989 Wellness Visit 01/07/1992 HIV Screening 01/07/2004 Hepatitis C Screening 2007 Assessment & Plan 1. Inflammatory arthritis-controlled -RF/CCP were negative -Her x-rays do not show any evidence of an inflammatory arthritis. -As per history her symptoms were more in keeping with fibromyalgia. -We will stop her methotrexate and monitor her. Patient also has fatty liver and long-term methotrexate would not be a good option especially if there is no evidence of an inflammatory arthritis. -We will continue her on Humira 40 mg q. 14 days -We will see her back in 3 months, she would is been advised to call if she experiences any issues before then 2. Long-term methotrexate/Humira user-no GI side effects -Patient aware she must obtain lab work every 3 months. -Unable to become because she had a hysterectomy. All biologics suppress the immune system and increase the risk of infections. -People who take biologics are huffman likely to get infections such as upper respiratory infections,pneumonia, urinary tract infections, and skin infections. -Increased risk of opportunistic infections. -Risk of injection site reaction. -Counseled to hold biological if active infection or fever. -Advised to obtain vaccinations (PCV13, PPSV23, flu, COVID), 3. Obesity-counseled -Advised patient to switch out high-calorie soda drinks for low-calorie fizzy water. -Offered her weight management referral. 4. Healthcare maintenance-not UTD -Counseled patient and explained that it is very important that she remains up-to-date with her pneumococcal and influenza vaccinations. -Advised her she should obtain her Covid vaccines when as she is able to. 5. Bone health -Vitamin D level - Vitamin D supplementation recommended, optimal dose is the dose necessary to achieve Vitamin D 25-OH blood level in range of 40-50 ng/mL. (Vitamin D 1000 IU total a day, or dose necessary to achieve a Vitamin D 25-OH blood level in rangeof 40-50 ng/mL). -Recommended daily dose of calcium: 1200mg total a day in divided doses. Calcium from dietary sources, if not sufficient, or if with h/o calcium nephrolithiasis would recommend Calcium Citrate supplement, as it is recommended to avoid caclium carbonate products, which as main dietary calcium source. -Regular weight-bearing and muscle-strengthening exercise -Avoidance of tobacco smoking, excessive alcohol intake and excessive caffeine intake. -Fall and fracture precautions The patient indicates understanding of these issues and agrees with the plan. Return to clinic in 3 month(s) Telehealth appointments steven Carlton MD Videotape Editor Manager Training And Development Note: To expedite correspondence this note was generated by [employer] recognition software. Somegrammatical or spelling errors may occur using the system. documented in this encounter* Leon Santos LPN - 06/05/2020 9:56 AM EST Pt's Jimbo required a PA, the online form was completed through [employer]. documented in this encounter Assessments Diagnosis Rheumatoid arthritis, involving unspecified site, unspecified whether rheumatoid factor present (HCC)- Primary rat exterminator methotrexate user Adalimumab (Humira) long-term use Obesity (BMI 30-39.9) Healthcare maintenance Diagnosis Rheumatoid arthritis, involving unspecified site, unspecified whether rheumatoid factor present (HCC) Diagnosis Inflammatory arthritis- Primary Unspecified inflammatory polyarthropathy Fibromyalgia Unspecified myalgia and myositis nursing home methotrexate user Adalimumab (Humira) long-term use Class 2 obesity due to excess calories without serious comorbidity with body mass index (BMI) of 37.0 to 37.9 in adult Healthcare maintenance Low vitamin D level Vitamin D deficiency, unspecified Reason for Referral Status Reason Specialty Diagnoses / Procedures Referred By Contact Referred To Contact Pending Review Diagnoses Rheumatoid arthritis, involving unspecified site, unspecified whether rheumatoid factor present (HCC) Adalimumab (Humira) long-term use Karina Valdivia, MUSIC TYPOGRAPHER [address] [place] [address] Specialty Diagnoses / Procedures Referred By Contac t Referred To Contact Diagnoses Rheumatoid arthritis, involving unspecified site, unspecified whether rheumatoid factor present (HCC) Adalimumab (Humira) long-term use Darleen Carlton MD [address] [place] [address] Referral ID Status Reason Start Date Expiration Date V isits Requested Visits Authorized [id number] Pending Review 1 1 Specialty Diagnoses / Procedures Referred By Contac t Referred To Contact [facility] Diagnoses Generalized articular hypermobility Procedures CONSULT TO PHYSICAL THERAPY PHYSICAL THERAPY EVALUATION HIGH COMPLEX 45 MINS Tawnya Wise APRN.MUSIC TYPOGRAPHER [address] [place] [address] [facility] [place] [address] [place] [address] Referral ID Status Reason Start Date Expiration Date Visits Requested Visits Authorized [id number] Pending Review Auto-Generat ed Referral 09/28/2022 09/28/2023 1 1 Specialty Diagnoses / Procedures Referred By Alphonso de jesus Referred To Contact Genetics Diagnoses Hypermobility arthralgia Darleen Carlton MD [address] [place] [address] Referral ID Status Reason Start Date Expiration Date Visits Re quested Visits Authorized [id number] Closed 12/14/2022 12/14/2023 1 1 Medications Administered Section Active Administered Medications - up to 3 most recent administrations Medication Order MAR Action Action Date Dose Rate Site PHENYLephrine 2.5 % 1 Drop (AK-DILATE, MARIPOSA-SYNEPHRINE) 1 Drop, BOTH EYES, DIRECTED, Starting on Mon04/28/22 at 1430, Until Mon04/29/22 at 0229, Administer for dilation PROTECT FROM LIGHT Given 04/28/2022 2:12 PM EST 1 Drop proparacaine 0.5 % 1 Drop (ALCAINE) 1 Drop, BOTH EYES, DIRECTED, Starting on Mon04/28/22 at 1430, Until Mon04/29/22 at 0229, Administer for pneumo tonometry, tonopen tonometry, or pachymetry. In the event of a proparacaine shortage, administer tetracaine 0.5% ophthalmic drops 1 drop in the left eye as directed for pneumo tonometry, tonopen tonometry, or pachymetry Given 04/28/2022 2:12 PM EST 1 Drop tropicamide 1 % 1 Drop (MYDRIACYL) 1 Drop, BOTH EYES, DIRECTED, Starting on Soumya 04/28/22 at 1430, Until Mon04/29/22 at 0229, Administer for dilation Given 04/28/2022 2:12 PM EST 1 Drop Additional Source Comments INFORMATION SOURCE (unrecogn ized section and content) DATE CREATED AUTHOR AUTHOR'S ORGANIZ ATION 04/27/2022 [facility] DATE CREATED AUTHOR AUTHOR'S ORGANIZ ATION 08/08/2022 [facility] DATE CREATED AUTHOR AUTHOR'S ORGANIZ ATION 12/14/2022 [facility] DATE CREATED AUTHOR AUTHOR'S ORGANIZ ATION 12/16/2022 [facility] DATE CREATED AUTHOR AUTHOR'S ORGANIZ ATION 01/04/2023 [facility] DATE CREATED AUTHOR AUTHOR'S ORGANIZ ATION 01/08/2023 [facility] DATE CREATED AUTHOR AUTHOR'S ORGANIZ ATION 02/22/2023 [facility] DATE CREATED AUTHOR AUTHOR'S ORGANIZ ATION 03/17/2023 [facility] Reason for Visit (unrecogniz ed section and content) Reason Comments Dry Eye(s) Both Eyes Reason Comments Follow Up Specialty Diagnoses / Procedures Referred By Alphonso de jesus Referred To Contact Internal Medicine / INTERNAL MEDICINE Diagnoses 6 month follow-up Procedures 4C EST Get Osman MD [address] [place] [address] Get Osman MD [address] [place] [address] Referral ID Status Reason Start Date Expiration Date Visits Re quested Visits Authorized [id number] Closed 09/06/2021 04/02/2022 1 1 Reason Onset Date Comments Medication Refill 09/15/2021 Reason Comments Dry Eye Syndrome Follow Up Bilateral Floppy Eyelid Syndrome Bilateral Reason Comments New Patient Reason Onset Date Comments Refill Request 12/10/2021 Reason Comments Medication Refill Reason Comments Dry Eye Syndrome Follow Up Bilateral Floppy Eyelid Syndrome Bilateral Reason Comments Imm/Inj Reason Comments Established Patient Reason Comments Follow Up Reason Onset Date Comments Medication Refill 10/17/2022 Reason Comments Obesity Reason Onset Date Comments Refill Request 11/07/2022 Reason Comments Patient Question Reason Comments New Patient Evaluation Reason Comments poor appetite started about 1 week ago. Had feeling that pantoprazole was not working as it had been. Stomach not emptying as it should and has poor appetite and uncomfortable full feeling Reason Comments Established Patient Follow Up Reason Comments Appointment Reason Comments Radiology NM Specialty Diagnoses / Procedures Referred By Alphonso de jesus Referred To Contact MOLECULAR [facility] FUNCTIONAL IMAGING Diagnoses Dyspepsia Procedures NM GASTRIC EMPTYING SOLID GASTRIC EMPTYING STUDY Tawnya Wise APRN.MUSIC TYPOGRAPHER [address] [place] [address] [facility] [address] [place], [place] [id number] Referral ID Status Reason Start Date Expiration Date V isits Requested Visits Authorized [id number] Closed Auto-Generate d Referral 12/27/2022 01/26/2024 1 1 Reason Comments Abdominal Pain Pt is c/o lower abdo jenny pain that started last night. Source Comments (unrecognize d section and content) In the event this informatio n is protected by the Federal Confidentiality of Alcohol and Drug Abuse Patient Records regulations: The Federal rules restrict any use of the information to criminally investigate or prosecute any alcohol or drug abuse patient.[facility] the event this information is protected by the Federal Confidentiality of Alcohol and Drug Abuse Patient Records regulations: The Federal rules restrict any use of the information to criminally investigate or prosecute any alcohol or drug abuse patient.[facility] Hospital[facility] the event this information is protected by the Federal Confidentiality of Alcohol and Drug Abuse Patient Records regulations: The Federal rules restrict any use of the information to criminally investigate or prosecute any alcohol or drug abuse patient.[facility] the event this information is protected by the Federal Confidentiality of Alcohol and Drug Abuse Patient Records regulations: The Federal rules restrict any use of the information to criminally investigate or prosecute any alcohol or drug abuse patient.[facility] the event this information is protected by the Federal Confidentiality of Alcohol and Drug Abuse Patient Records regulations: The Federal rules restrict any use of the information to criminally investigate or prosecute any alcohol or drug abuse patient.[facility] the event this information is protected by the Federal Confidentiality of Alcohol and Drug Abuse Patient Records regulations: The Federal rules restrict any use of the information to criminally investigate or prosecute any alcohol or drug abuse patient.[facility] Hospital[facility] the event this information is protected by the Federal Confidentiality of Alcohol and Drug Abuse Patient Records regulations: The Federal rules restrict any use of the information to criminally investigate or prosecute any alcohol or drug abuse patient.[facility] the event this information is protected by the Federal Confidentiality of Alcohol and Drug Abuse Patient Records regulations: The Federal rules restrict any use of the information to criminally investigate or prosecute any alcohol or drug abuse patient.[facility] the event this information is protected by the Federal Confidentiality of Alcohol and Drug Abuse Patient Records regulations: The Federal rules restrict any use of the information to criminally investigate or prosecute any alcohol or drug abuse patient.[facility] the event this information is protected by the Federal Confidentiality of Alcohol and Drug Abuse Patient Records regulations: The Federal rules restrict any use of the information to criminally investigate or prosecute any alcohol or drug abuse patient.[facility] the event this information is protected by the Federal Confidentiality of Alcohol and Drug Abuse Patient Records regulations: The Federal rules restrict any use of the information to criminally investigate or prosecute any alcohol or drug abuse patient.[facility] Hospital[facility] the event this information is protected by the Federal Confidentiality of Alcohol and Drug Abuse Patient Records regulations: The Federal rules restrict any use of the information to criminally investigate or prosecute any alcohol or drug abuse patient.[facility] Hospital[facility] the event this information is protected by the Federal Confidentiality of Alcohol and Drug Abuse Patient Records regulations: The Federal rules restrict any use of the information to criminally investigate or prosecute any alcohol or drug abuse patient.[facility] Hospital[facility] the event this information is protected by the Federal Confidentiality of Alcohol and Drug Abuse Patient Records regulations: The Federal rules restrict any use of the information to criminally investigate or prosecute any alcohol or drug abuse patient.[facility] Hospital[facility] the event this information is protected by the Federal Confidentiality of Alcohol and Drug Abuse Patient Records regulations: The Federal rules restrict any use of the information to criminally investigate or prosecute any alcohol or drug abuse patient.[facility] Hospital[facility] the event this information is protected by the Federal Confidentiality of Alcohol and Drug Abuse Patient Records regulations: The Federal rules restrict any use of the information to criminally investigate or prosecute any alcohol or drug abuse patient.[facility] Hospital[facility] the event this information is protected by the Federal Confidentiality of Alcohol and Drug Abuse Patient Records regulations: The Federal rules restrict any use of the information to criminally investigate or prosecute any alcohol or drug abuse patient.[facility] Hospital[facility] the event this information is protected by the Federal Confidentiality of Alcohol and Drug Abuse Patient Records regulations: The Federal rules restrict any use of the information to criminally investigate or prosecute any alcohol or drug abuse patient.[facility] Hospital[facility] the event this information is protected by the Federal Confidentiality of Alcohol and Drug Abuse Patient Records regulations: The Federal rules restrict any use of the information to criminally investigate or prosecute any alcohol or drug abuse patient.[facility] HospitalIn the event this information is protected by the Federal Confidentiality of Alcohol and Drug Abuse Patient Records regulations: The Federal rules restrict any use of the information to criminally investigate or prosecute any alcohol or drug abuse patient.[facility] Hospital[facility] the event this information is protected by the Federal Confidentiality of Alcohol and Drug Abuse Patient Records regulations: The Federal rules restrict any use of the information to criminally investigate or prosecute any alcohol or drug abuse patient.[facility] Care Teams (unrecognized sec tion and content) Farm Rancher Relationship Specialty Start Date End Date Get Osman MD [address] [place] [address] [phone] PCP - General Internal Medicine 02/04/20 Farm Rancher Relationship Specialty Start Date End Date Get Osman MD [address] [place] [address] [phone] PCP - General Internal Medicine 01/23/15 Farm Rancher Relationship Specialty Start Date End Date Get Osman MD [address] [place] [address] [id number] PCP - General Internal Medicine 02/04/20 Farm Rancher Relationship Specialty Start Date End Date Get Osman MD [address] [place] [address] [phone] PCP - General Internal Medicine 01/23/15 Farm Rancher Relationship Specialty Start Date End Date Get Osman MD [address] [place] [address] [id number] PCP - General Internal Medicine 01/23/15 Farm Rancher Relationship Specialty Start Date End Date Get Osman MD [address] [place] [id number] PCP - General Internal Medicine 02/04/20 Farm Rancher Relationship Specialty Start Date End Date Get Osman MD [address] [place] [id number] PCP - General Internal Medicine 01/23/15 Farm Rancher Relationship Specialty Start Date End Date Get Osman MD [address] [place] [address] [id number] PCP - General Internal Medicine 01/23/15 Farm Rancher Relationship Specialty Start Date End Date Get Osman MD [address] [place] [phone] PCP - General Internal Medicine 02/04/20 Farm Rancher Relationship Specialty Start Date End Date Get Osman MD [address] [place] [id number] PCP - General Internal Medicine 02/04/20 Farm Rancher Relationship Specialty Start Date End Date Get Osman MD [address] [place] [phone] PCP - General Internal Medicine 01/23/15 Farm Rancher Relationship Specialty Start Date End Date Get Osman MD [address] [place] [address] PCP - General Internal Medicine 02/04/20 Farm Rancher Relationship Specialty Start Date End Date Get Osman MD [address] [place] [address] PCP - General Internal Medicine 01/23/15 Farm Rancher Relationship Specialty Start Date End Date Get Osman MD [address] [place] [address] PCP - General Internal Medicine 01/23/15 Farm Rancher Relationship Specialty [place] [address] [place] [id number] PCP - General Internal Medicine 01/23/15 Farm Rancher Relationship Specialty [place] [address] [place] [id number] PCP - General Internal Medicine 02/04/20 Farm Rancher Relationship Specialty Start Date End Date Get Osman MD [address] [place] [address] PCP - General Internal Medicine 01/23/15 Farm Rancher Relationship Specialty Start Date End Date Get Osman MD [address] [place] [address] PCP - General Internal Medicine 01/23/15 Farm Rancher Relationship Specialty Start Date End Date Get Osman MD [address] [place], [place] [address] PCP - General Internal Medicine 01/23/15 Farm Rancher Relationship Specialty Start Date End Date Get Osman MD [address] [place], [place] [address] PCP - General Internal Medicine 01/23/15 Farm Rancher Relationship Specialty Start Date End Date Get Osman MD [address] [place], [place] [address] PCP - General Internal Medicine 12/17/22 Farm Rancher Relationship Specialty Start Date End Date Gte Osman MD [address] [place], [place] [phone] PCP - General Internal Medicine 01/23/15 <item> Privacy Markings (unrecogniz ed section and content) Section Author: Nasra Wagner PROHIBITION ON REDISCLOSURE OF CONFIDENTIAL INFORMATION This notice accompanies a disclosure of information concerning a client made to you with the consent of such client. Scheduled Active and Recently Administ ered Medications (unrecognized section and content) Continuous Medication Order 02/07/2023 02/08/2023 02/09/2023 sodium chloride 0.9% infusion 150 mL/hr, intravenous, Continuous, Starting on Soumya 02/09/23 at 1510 1707 (New Bag - Prov ider: Leonor Nelson RN)2020 (Stopped - Provider: Leonor Nelson RN) FOR RECORDS PERTAINING TO PATIENTS WHO ARE OR HAVE BEEN ENROLLED IN A CHEMICAL DEPENDENCY/SUBSTANCEABUSE PROGRAM, SOME INFORMATION MAY BE OMITTED. This clinical summary was aggregated from multiple sources. Caution should be exercised in using it in the provision of clinical care. This summary normalizes information from multiple sources, and as a consequence, information in this document may materially change the coding, format and clinical context of patient data. In addition, data may be omitted in some cases. CLINICAL DECISIONS SHOULD BE BASED ON THE PRIMARY CLINICAL RECORDS. [email or web address]. provides no warranty or guarantee of the accuracy or completeness of information in this document.
== END | disposition home or self-care (01) ==
LOC: CT 14:12
PROVIDERS: PCP Internal Medicine; Referring Provider Surgery; Visit Provider Surgery
DX: R10.9 Unspecified abdominal pain (principal)
CPT/HCPCS: 74177; Q9967